=== PATIENT | female | born 1950 | race African-American/Black ===

== ENCOUNTER 2024-11-27 10:37 | Outpatient (CLI) | payer MEDICARE, SELFPAY ==
--- OUTSIDE RECORDS SUMMARY | 2024-08-05 08:45 | XMS_ITS ---
Author Organization [facility] Address [address] [place] [address] [place] [address] Care Team Providers Care National Opelint Analyst Name Role Phone STEVE CARCAMO, LUIS Primary Care Provider U Arben Khan Unavailable [phone] MD THOMAS, RUFINO Unavailable Unavailable ALLERGIES Allergen (clinical drug ingredient) Drug/Non Drug Allergy documented on EMR Reaction Allergy Type Onset Date Status Chapstick swelling Drug Allergy Active angiotensin-convertin g enzyme inhibitor (FN) KAVON Inhibitors anaphylaxis Drug Allergy Active lisinopril Lisinopril angioedema Drug Allergy Acti ve Substance with sulfonamide structure and antibacterial mechanism of action (substance) Sulfa Antibiotics rash Drug Allergy Active sulfacetamide Sulfacetamide angioedema Drug Allergy Active REASON FOR VISIT Follow Up, Left Low Back Pain MEDICATIONS Medication SIG (Take, Route, Frequency, Duration) Notes Start Date End Date Status Xanax 0.25 MG 1-2 tablets Orally 3 0 minutes prior to injection 08/05/2024 Active traMADol HCl 50 MG Oral for 7 Active Xanax 0.25 MG 1-2 tablets Orally 3 0 minutes prior to injection Active metFORMIN HCl ER 500 MG TAKE 1 TABLET BY MOUTH TWICE A DAY Oral for 90 Active Chlorthalidone 25 MG TAKE 1 TABLET (25 M G TOTAL) BY MOUTH DAILY. Oral for 90 Active Furosemide 40 MG TAKE 1 TABLET (40 MG TOTAL) BY MOUTH 3 (THREE) TIMES A WEEK Oral for 70 Active Vitamin E 400 UNIT 1 capsule Orally Onc e a day for 30 day(s) 01/30/2020 Active Vitamin D-[address] 25 MCG (1000 UT) 1 tablet Orally Once a day for 30 day(s) 01/30/2020 Active Spironolactone 25 MG 1 tablet Oral Once a day Active Pioglitazone HCl 30 MG 1 tablet Oral Onc e a day Active Cyclobenzaprine HCl 10 MG 1 tablet at be dtime as needed Oral Once a day Active Atorvastatin Calcium 10 MG 1 tablet Oral ly Once a day Active Anastrozole 1 MG 1 tablet Oral Once a day Active amLODIPine Besylate 10 MG 1 tablet Oral Once a day Active Hydroxychloroquine Sulfate 2 00 MG as directed Oral Active Aspirin 81 MG 1 tablet Orally Once a day for 30 day(s) Active Tylenol Extra Strength 500 MG 1 tablet a s needed Orally every 6 hrs Active SOCIAL HISTORY Tobacco Use: Social History Observation Description Date Details (start date - stop date) Never Smoker NA - NA Sex Assigned At : Social History Observation Description Sex Assigned At Unknown Tobacco Use/Smoking Question Answer Notes Are you a nonsmoker Section Notes: 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 She denies tobacco, alcohol and drug use. VITAL SIGNS Blood pressure systolic 134 mm Hg 08/06/19 25 Blood pressure diastolic 73 mm Hg 025 Heart Rate 85 /min 08/05/2024 Respiratory Rate 16 /min 08/05/2024 Height 5 ft 1 in in 08/05/2024 Weight 239 lbs 08/05/2024 BMI 45.15 kg/m2 08/05/2024 Encounters Encounter Location Date Provider Diagnosis [facility] [address] [place] [address] 08/05/2024 Arben Montalvoick Radiculopathy, lumba r region M54.16 ; Spondylosis without myelopathy or radiculopathy, lumbar region M47.816 ; Sacroiliitis, not elsewhere classified M46.1 ; Postlaminectomy syndrome, not elsewhere classified M96.1 ; 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 ; group home (current) use of aspirin Z79.82 and group home (current) use of anticoagulants Z79.01 ASSESSMENTS Encounter Date Diagnosis Assessment Notes Treatment Notes Treatment Clinical Notes Section Notes 08/05/2024 Radiculopathy, lumbar region (ICD-10 - M54.16) 08/05/2024 Spondylosis without myelopathy or radiculopathy, lumbar region (ICD-10 - M47.816) schedule a left L3-5 medial branch nerve block as a diagnostic and potentially therapeutic endeavor to isolate the source of the patient's facet-generated low back pain originating from the L4-5 and L5-S1 facet joints and to ultimately perform radiofrequency ablation for more durable pain relief. The risks of this procedure including pain, bleeding, infection, nerve damage, spinal cord injury, paralysis, total spinal anesthesia resulting in cardiopulmonary arrest/, respiratory distress requiring intubation, neuritis after radiofrequency ablation, hyperglycemia, insomnia, hair loss, muscle atrophy, skin depigmentation, weight gain, fluid retention, adrenal suppression, osteoporosis resulting in fractures, avascular necrosis of the hip, cataracts, bleeding gastric ulcer, worsening pain and failure to relieve pain were discussed and the patient is agreeable to proceeding at this time. 08/05/2024 Sacroiliitis, not elsewhere classified (ICD-10 - M46.1) 08/05/2024 Postlaminectomy syndrome, not elsewhere classified (ICD-10 - M96.1) 08/05/2024 Fear of injections and transfusions (ICD-10 - F40.231) The patient was given written instructions explaining the above and was informed that they would need to come with a over the road driver after taking this medication due to the risk of impairment. 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 De Dios. I have discussed and reviewed all of the pertinent history, physical examination findings and diagnostic imaging results with him. As a result of our discussion, Dr. De Dios has determined the above assessment and directed the treatment plan. This note was dictated using voice recognition software and therefore inadvertent errors may have occurred. This note was dictated by CHELO Benítez. Total Time Spent with Patient and Medical Decision Makin minutes PLAN OF TREATMENT Medication Medication Name Sig Start Date Stop Date Notes Xanax 0.25 MG 1-2 tablets Orally 3 0 minutes prior to injection 08/05/2024 Treatment Notes Assessment Notes Spondylosis without myelopat hy or radiculopathy, lumbar region schedule a left L3-5 medial branch nerve block as a diagnostic and potentially therapeutic endeavor to isolate the source of the patient's facet-generated low back pain originating from the L4-5 and L5-S1 facet joints and to ultimately perform radiofrequency ablation for more durable pain relief. The risks of this procedure including pain, bleeding, infection, nerve damage, spinal cord injury, paralysis, total spinal anesthesia resulting in cardiopulmonary arrest/, respiratory distress requiring intubation, neuritis after radiofrequency ablation, hyperglycemia, insomnia, hair loss, muscle atrophy, skin depigmentation, weight gain, fluid retention, adrenal suppression, osteoporosis resulting in fractures, avascular necrosis of the hip, cataracts, bleeding gastric ulcer, worsening pain and failure to relieve pain were discussed and the patient is agreeable to proceeding at this time. Fear of injections and transfusions The patient was given written instructions explaining the above and was informed that they would need to come with a over the road driver after taking this medication due to the risk of impairment. Other The above-named patient was evaluated in conjunction with Dr. De Dios. I have discussed and reviewed all of the pertinent history, physical examination findings and diagnostic imaging results with him. As a result of our discussion, Dr. De Dios has determined the above assessment and directed the treatment plan. This note was dictated using voice recognition software and therefore inadvertent errors may have occurred. This note was dictated by CHELO Benítez. Total Time Spent with Patient and Medical Decision Makin minutes Next Appt Details Follow Up: left L3-5 MBNB, Braden washburn: Progress Notes * Examination Category Sub-Category Detail Notes Category Not es Examination/ Pre-Anesthesia Assessment General: The patient is alert and oriented X 3 in moderate distress secondary to pain HEENT: Normocephalic, atrau matic. PERRL. The oropharynx is clear Neck: There is full range of motion of the cervical spine Heart: Regular rate and rhy thm Chest: Clear to auscultatio n bilaterally Abdomen: Soft and benign with normal bowel sounds throughout Musculoskeletal and Extremities: There i s tenderness to palpation over the bilateral L2-3 through L5-S1 facet joints. Extension and lateral rotation of the lumbar spine reproduces the patient's typical axial low back pain. Clayton's, Phoenix's and Gaenslen's are positive on the left. There is tenderness to palpation over the left sacroiliac joint and greater trochanter. There is tenderness to palpation over the bilateral lumbar paraspinal muscles and palpable myofascial trigger points throughout. There is weakness and atrophy of the bilateral lumbar paraspinal muscles Neurological: There is positive st raight leg raising on the left. There are no focal strength deficits in the bilateral upper and lower extremities Skin: Clean, dry and intac t Psychiatric: Mood and affect are normal History and Physical Notes * HPI (History of Present Illness) Category Sub-Category Detail Notes Category Not es Pain Management Radiographic Imaging An MRI lumbar spine done on 02/28/24 demonstrates an anterior interbody and posterior instrumented fusion at L4-5. At L3-4 there is central disc bulging and a right laminotomy without significant stenosis. At L4-5 there is a right hemilaminectomy and facetectomy. There is moderate right foraminal stenosis. At L5-S1 there is mild bilateral foraminal stenosis CT lumbar spine without contrast performed 07/30/24. L1-2 disc is normal. Mild facet arthropathy is seen. There is no central, lateral recess or foraminal stenosis. L2-3 disc bulging with annular calcification and extends into the foramina, which are mildly stenosis. Moderate facet arthropathy and right laminectomy is noted without central or lateral recess stenosis. CT pelvis without contrast performed 07/30/24. Mild bilateral SI joint sclerosis and vacuum phenomenon is seen without erosion or ankylosis. The pelvic ring is intact. Hip joints are symmetric without significant narrowing. Partial image anterior and posterior instrument effusion at L3-4 is seen. Last discus labeled as L4-S1. Moderate colonic stool barn and sigmoid diverticulosis is present. No distended small bowel is seen. There is no free fluid. Nondistended bladder is seen. Uterus is absent. No pelvic lymphadenopathy is seen. Impression mild bilateral SI joint osteoarthritis. Assessment and Follow-up: Follow-up Plan documen linda:: Yes MIPS Quality 2020: MIPS Documented:: Compliant
--- OUTSIDE RECORDS SUMMARY | 2024-08-16 03:30 | XMS_ITS ---
Author Organization [facility] Address [address] [place] [address] [place] [address] Care Team Providers Care Hydrogen Treater Name Role Phone STEVE CARCAMO, LUIS Primary Care Provider U Arben Khan Unavailable [phone] MD THOMAS, RUFINO Unavailable Unavailable ALLERGIES Allergen [...] angioedema Drug Allergy Active REASON FOR VISIT Left Low Back Pain MEDICATIONS Medication SIG (Take, Route, Frequency, Duration) Notes Start Date End Date Status Xanax 0.25 MG 1-2 tablets Orally 3 0 minutes prior to injection Active traMADol HCl 50 MG Oral for [...] tablet Oral Onc e a day Active Hydroxychloroquine Sulfate 2 00 MG as directed Oral Active Cyclobenzaprine HCl 10 MG 1 tablet at be dtime as needed Oral Once a day Active Atorvastatin Calcium 10 MG 1 tablet Oral ly Once a day Active Anastrozole 1 MG 1 tablet Oral Once a day Active amLODIPine Besylate 10 MG 1 tablet Oral Once a day Active Tylenol Extra Strength 500 MG 1 tablet a s needed Orally every 6 hrs Active Aspirin 81 MG 1 tablet Orally Once a day for 30 day(s) Active PROBLEMS Problem Type ICD Code Onset Dates Problem Status W/U Status Risk SNOMED Code Notes Problem Spondylosis without myelopathy or radiculopathy, lumbosacral region (M47.817) Active confirmed Lumbosacral spondylosis without myelopathy (disorder) ([id number]) VITAL SIGNS Blood pressure systolic 138 mm Hg 08/17/19 25 Blood pressure diastolic 71 mm Hg 025 Heart Rate 95 /min 08/16/2024 Respiratory Rate 18 /min 08/16/2024 Height 5 ft 1 in in 08/16/2024 Weight 239 lbs 08/16/2024 BMI 45.15 kg/m2 08/16/2024 Post procedure VS=BP 127/69 ,P 100 ,R 16Pain=5/10. Reports a 40% improvemnent in pain. Discharged home per ambulatory with family, in no acute distress. Encounters Encounter Location Date Provider Diagnosis [facility] [address] [place] [address] 08/16/2024 Arben De Dios Spondylosis without myelopathy or radiculopathy, lumbar region M47.816 and Spondylosis without myelopathy or radiculopathy, lumbosacral region M47.817 ASSESSMENTS Encounter Date Diagnosis Assessment Notes Treatment Notes Treatment Clinical Notes Section Notes 08/16/2024 Spondylosis without myelopathy or radiculopathy, lumbar region (ICD-10 - M47.816) 08/16/2024 Spondylosis without myelopathy or radiculopathy, lumbosacral region (ICD-10 - M47.817) PLAN OF TREATMENT Next Appt Details Follow Up: 2 Weeks, Reason: Procedure Notes * Category Sub-Category Detail Notes L3-5 Medial Branch Nerve Block Under Fluroscopy Location Left Anesthesia Local without IV sed ation Operative Technique: After the risks, be nefits, alternative treatment options and potential complications related to the procedure were discussed, informed consent was obtained. The specific risks of this procedure including pain, bleeding, [...] is agreeable to proceeding at this time. The patient was placed in the prone position on the fluoroscopy table. Standard ASA monitors were applied. The back was prepped and draped in the usual sterile fashion with chlorhexidine 2%/IPA 70%. The left L4 and L5 pedicles as well as the junction of the superior articular process of S1 and the sacral ala were identified with x-ray using an AP view. A 25 gauge 3.5 inch spinal needle was inserted in a gun barrel fashion to the junction of the superior articular process and transverse process at the upper outer quadrant of the pedicle until periosteum was contacted at each level bilaterally. 1.5 mL of 0.25% Preservative-Free bupivacaine was drawn up. After negative aspiration for blood, air or CSF, 0.5 mL of this solution was injected at each level, blocking the left L3 and L4 medial branch nerves. The left L5 dorsal ramus was blocked at the junction of the superior articular process of S1 and the sacral ala in the same fashion. The needles were then removed, the skin was cleaned and band-aids were placed over the puncture sites. The patient tolerated the procedure well, was able to ambulate without difficulty and was monitored for 20 minutes. The patient remained hemodynamically and neurologically stable. No complications were observed. The patient noted a 40% reduction in her typical back pain associated with extension and lateral rotation of the lumbar spine. Postoperative instructions were reviewed with the patient. The patient was discharged home in good condition with a pole truck driver. X-ray time: 10 seconds Progress Notes * Examination Category Sub-Category Detail [...] patient's typical axial low back pain. Clayton's, Willow's and Gaenslen's are positive on the left. [...] es Pain Management Radiographic Imaging An MRI lumb ar spine done on 02/28/24 demonstrates an anterior interbody and posterior instrumented fusion at L4-5. At L3-4 there is central disc bulging and a right laminotomy without significant stenosis. At L4-5 there is a right hemilaminectomy and facetectomy. There is moderate right foraminal stenosis. At L5-S1 there is mild bilateral foraminal stenosis Assessment and Follow-up: Follow-up Plan documen linda:: Yes MIPS Quality 2020: MIPS Documented:: Compliant
--- OUTSIDE RECORDS SUMMARY | 2024-08-26 05:45 | XMS_ITS ---
Author Organization [facility] Address [address] [place] [address] [place] [address] Care Team Providers Care Perforator Operator Oil Well Name Role Phone STEVE CARCAMO, LUIS Primary Care Provider U Arben Khan Unavailable [phone] MD THOMAS, RUFINO Unavailable Unavailable ALLERGIES Allergen [...] Orally 3 0 minutes prior to injection 08/26/2024 Active Cetirizine HCl 10 MG TAKE 0.5 TABLETS (5 MG TOTAL) BY MOUTH DAILY NEEDED FOR ALLERGIES Oral for 90 Active traMADol HCl 50 MG Oral for 7 Active Xanax 0.25 MG 1-2 tablets Orally 3 0 minutes prior to injection Active Vitamin E 400 UNIT 1 capsule Orally Onc e a day for 30 day(s) 01/30/2020 Active Vitamin D-[address] 25 MCG (1000 UT) 1 tablet Orally Once a day for 30 day(s) 01/30/2020 Active metFORMIN HCl ER 500 MG TAKE 1 TABLET BY MOUTH TWICE A DAY Oral for 90 Active Chlorthalidone 25 MG TAKE 1 TABLET (25 M G TOTAL) BY MOUTH DAILY. Oral for 90 Active Furosemide 40 MG TAKE 1 TABLET (40 MG TOTAL) BY MOUTH 3 (THREE) TIMES A WEEK Oral for 70 Active Pioglitazone HCl 30 MG 1 tablet Oral Onc e a day Active Hydroxychloroquine Sulfate 2 00 MG as directed Oral Active Spironolactone 25 MG 1 tablet Oral Once a day Active Cyclobenzaprine HCl 10 MG 1 tablet at be dtime as needed Oral Once a day Active Atorvastatin Calcium 10 MG 1 tablet Oral ly Once a day Active Tylenol Extra Strength 500 MG 1 tablet a s needed Orally every 6 hrs Active Anastrozole 1 MG 1 tablet Oral Once a day Active amLODIPine Besylate 10 MG 1 tablet Oral Once a day Active Aspirin 81 MG 1 tablet Orally Once a day for 30 day(s) Active SOCIAL HISTORY Tobacco Use: Social History Observation Description Date Details (start date - stop date) Never Smoker NA - NA Sex Assigned At : Social History Observation Description Sex Assigned At Unknown Tobacco Use/Smoking Question Answer Notes Are you a nonsmoker Section Notes: 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 She denies tobacco, alcohol and drug use. VITAL SIGNS Blood pressure systolic 135 mm Hg 08/27/19 25 Blood pressure diastolic 75 mm Hg 025 Heart Rate 94 /min 08/26/2024 Respiratory Rate 16 /min 08/26/2024 Height 5 ft 1 in in 08/26/2024 Weight 235 lbs 08/26/2024 BMI 44.40 kg/m2 08/26/2024 Encounters Encounter Location Date Provider Diagnosis [facility] [address] [facility] [place] [address] 08/26/2024 Arben De Dios Spondylosis without myelopathy or radiculopathy, lumbar region M47.816 ; Spondylosis without myelopathy or radiculopathy, lumbosacral region M47.817 ; Postlaminectomy syndrome, not elsewhere classified M96.1 ; Radiculopathy, lumbar region M54.16 and 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 All questions were answered, schedule a left L3-5 medial branch nerve [...] is agreeable to proceeding at this time. 08/26/2024 Spondylosis without myelopathy or radiculopathy, lumbosacral region (ICD-10 - M47.817) 08/26/2024 Postlaminectomy syndrome, not elsewhere classified (ICD-10 - M96.1) 08/26/2024 Radiculopathy, lumbar region (ICD-10 - M54.16) 08/26/2024 Fear of injections and transfusions (ICD-10 - F40.231) The patient was given written instructions explaining the above and was informed that they would need to come with a trash collector truck driver after taking this medication due to the risk of impairment. 08/26/2024 Other The above-named patient was evaluated in [...] Orally 3 0 minutes prior to injection 08/26/2024 Treatment Notes Assessment Notes Spondylosis without myelopat hy or radiculopathy, lumbar region The results of the patient's recent lumbar spine CT were discussed with the patient using an anatomical model and layman's terminology. All questions were answered, schedule a left L3-5 medial branch nerve [...] they would need to come with a trash collector truck driver after taking this medication due to [...] Appt Details Follow Up: left L3-5 MBNB, R wu: Progress Notes * Examination Category Sub-Category Detail [...] patient's typical axial low back pain. Clayton's, Jordan's and Gaenslen's are positive on the left. [...] foraminal stenosis. L2-3 disc bulging with annular calcification, extends to the foramina which are mildly stenosed. Moderate facet arthropathy and right laminectomy is noted without central or lateral recess stenosis. L3-4 left hemilaminectomy, anterior and posterior instrumented fusion with disc space or subsidence and osseous induration is seen. Hardware is otherwise satisfactory. Metal artifact obscures the spinal canal but no bony central stenosis is seen. Moderate right foraminal stenosis from osteophyte lash heterotrophic bone is present. L4-S1 bulging disc and moderate facet arthropathy is present. There is no central, lateral recess or foraminal stenosis. Overall impression. Please note for nonweightbearing lumbar vertebrae with last dose label, L4-S1. Anterior and posterior instrument fusion at the L3-4 with spacer integration, left hemilaminectomy and moderate right foraminal stenosis. L2-3 disc bulge, facet arthropathy, right laminectomy and mild bilateral foraminal stenosis. No central spinal stenosis is seen. Assessment and Follow-up: Follow-up Plan george mckeon:: Yes
--- OUTSIDE RECORDS SUMMARY | 2024-09-02 04:15 | XMS_ITS ---
Author Organization [facility] Address [address] [place] [address] [place] [address] Care Team Providers Care Molder Floor Name Role Phone STEVE CARCAMO, LUIS Primary Care Provider U Arben Khan Unavailable [phone] MD THOMAS, RUFINO Unavailable Unavailable ALLERGIES Allergen [...] angioedema Drug Allergy Active REASON FOR VISIT Left>Right Low Back Pain MEDICATIONS Medication SIG (Take, Route, Frequency, Duration) Notes Start Date End Date Status Hydroxychloroquine Sulfate 2 00 MG as directed Oral Active Anastrozole 1 MG 1 tablet Oral Once a day Active amLODIPine Besylate 10 MG 1 tablet Oral Once a day Active Cyclobenzaprine HCl 10 MG 1 tablet at be dtime as needed Oral Once a day Active Atorvastatin Calcium 10 MG 1 tablet Oral ly Once a day Active Cetirizine HCl 10 MG TAKE 0.5 TABLETS (5 MG TOTAL) BY MOUTH DAILY NEEDED FOR ALLERGIES Oral for 90 Active Aspirin 81 MG 1 tablet Orally Once a day for 30 day(s) Active Tylenol Extra Strength 500 MG 1 tablet a s needed Orally every 6 hrs Active Xanax 0.25 MG 1-2 tablets Orally 3 0 minutes prior to injection Active Xanax 0.25 MG 1-2 tablets Orally 3 0 minutes prior to injection Active traMADol HCl 50 MG Oral for 7 Active Chlorthalidone 25 MG TAKE 1 TABLET (25 M G TOTAL) BY MOUTH DAILY. Oral for 90 Active metFORMIN HCl ER 500 MG TAKE 1 TABLET BY MOUTH TWICE A DAY Oral for 90 Active Vitamin E 400 UNIT 1 capsule Orally Onc e a day for 30 day(s) 01/30/2020 Active Furosemide 40 MG TAKE 1 TABLET (40 MG TOTAL) BY MOUTH 3 (THREE) TIMES A WEEK Oral for 70 Active Spironolactone 25 MG 1 tablet Oral Once a day Active Vitamin D-[address] 25 MCG (1000 UT) 1 tablet Orally Once a day for 30 day(s) 01/30/2020 Active Pioglitazone HCl 30 MG 1 tablet Oral Onc e a day Active VITAL SIGNS Blood pressure systolic 135 mm Hg 09/03/19 25 Blood pressure diastolic 79 mm Hg 025 Heart Rate 87 /min 09/02/2024 Respiratory Rate 16 /min 09/02/2024 Height 5 ft 1 in in 09/02/2024 Weight 235 lbs 09/02/2024 BMI 44.40 kg/m2 09/02/2024 Post procedure VS= BP 137/71 , P 82, R 16Pain= 7/10.Discharged home per ambulatory, in no acute distress. Encounters Encounter Location Date Provider Diagnosis [facility] [address] [place] [id number] 09/02/2024 Arben De Dios Spondylosis without myelopathy or radiculopathy, lumbar region M47.816 and Spondylosis without myelopathy or radiculopathy, lumbosacral region M47.817 ASSESSMENTS Encounter Date Diagnosis Assessment Notes Treatment Notes Treatment Clinical Notes Section Notes 09/02/2024 Spondylosis without myelopathy or radiculopathy, lumbar region (ICD-10 - M47.816) 09/02/2024 Spondylosis without myelopathy or radiculopathy, lumbosacral region (ICD-10 - M47.817) PLAN OF TREATMENT Next Appt Details Follow Up: F/U 09/10/24, Reas on: Procedure Notes * Category Sub-Category Detail Notes [...] complications were observed. The patient noted a 25% reduction in her typical back pain associated with extension and lateral rotation of the lumbar spine. Postoperative instructions were reviewed with the patient. 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 X-ray time: 12 seconds Progress Notes * Examination Category Sub-Category [...] patient's typical axial low back pain. Clayton's, [place]'s and Gaenslen's are positive on the left. [...] is seen. Assessment and Follow-up: Follow-up Plan documen linda:: Yes
--- OUTSIDE RECORDS SUMMARY | 2024-09-10 03:45 | XMS_ITS ---
Author Organization [facility] Address [address] [place] [address] [place] [address] Care Team Providers Care Asphalt Paving Supervisor Name Role Phone STEVE CARCAMO, LUIS Primary Care Provider U Arben Khan Unavailable [phone] MD THOMAS, RUFINO Unavailable Unavailable ALLERGIES Allergen [...] FOR VISIT Follow Up, Left Low Back Pain, Left Lower Extremity Pain MEDICATIONS Medication SIG (Take, Route, Frequency, Duration) Notes Start Date End Date Status traMADol HCl 50 MG Oral for 7 Active Cetirizine HCl 10 MG TAKE 0.5 TABLETS (5 MG TOTAL) BY MOUTH DAILY NEEDED FOR ALLERGIES Oral for 90 Active Xanax 0.25 MG 1-2 tablets Orally 3 0 minutes prior to injection Active metFORMIN HCl ER 500 MG TAKE 1 TABLET BY MOUTH TWICE A DAY Oral for 90 Active Spironolactone 25 MG 1 tablet Oral Once a day Active Vitamin D-[address] 25 MCG (1000 UT) 1 tablet Orally Once a day for 30 day(s) 01/30/2020 Active Vitamin E 400 UNIT 1 capsule Orally Onc e a day for 30 day(s) 01/30/2020 Active Furosemide 40 MG TAKE 1 TABLET (40 MG TOTAL) BY MOUTH 3 (THREE) TIMES A WEEK Oral for 70 Active Chlorthalidone 25 MG TAKE 1 TABLET (25 M G TOTAL) BY MOUTH DAILY. Oral for 90 Active Pioglitazone HCl 30 MG 1 tablet Oral Onc e a day Active Anastrozole 1 MG 1 tablet Oral Once a day Active Atorvastatin Calcium 10 MG 1 tablet Oral ly Once a day Active Cyclobenzaprine HCl 10 MG 1 tablet at be dtime as needed Oral Once a day Active Hydroxychloroquine Sulfate 2 00 MG as directed Oral Active Tylenol Extra Strength 500 MG 1 tablet a s needed Orally every 6 hrs Active Aspirin 81 MG 1 tablet Orally Once a day for 30 day(s) Active amLODIPine Besylate 10 MG 1 tablet Oral Once a day Active SOCIAL HISTORY Tobacco Use: Social History Observation Description Date Details (start date - stop date) Never Smoker NA - NA Sex Assigned At : Social History Observation Description Sex Assigned At Unknown Tobacco Use/Smoking Question Answer Notes Are you a nonsmoker Section Notes: 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 She is single with two children. She denies tobacco, alcohol and drug use. VITAL SIGNS Blood pressure systolic 99 mm Hg 09/11/19 25 Blood pressure diastolic 51 mm Hg 025 Heart Rate 84 /min 09/10/2024 Respiratory Rate 18 /min 09/10/2024 Height 5 ft 1 in in 09/10/2024 Weight 230 lbs 09/10/2024 BMI 43.45 kg/m2 09/10/2024 Encounters Encounter Location Date Provider Diagnosis [facility] [address] [place] [id number] 09/10/2024 Arben De Dios Spondylosis without myelopathy or radiculopathy, lumbar region M47.816 ; Spondylosis without myelopathy or radiculopathy, lumbosacral region M47.817 ; Postlaminectomy syndrome, not elsewhere classified M96.1 and Radiculopathy, lumbar region M54.16 ASSESSMENTS Encounter Date Diagnosis Assessment Notes Treatment Notes Treatment Clinical Notes Section Notes 09/10/2024 Spondylosis without myelopathy or radiculopathy, lumbar region (ICD-10 - M47.816) The patient recently underwent follow-up s/p left L3-5 MBNB done on 09/02/24 and reports a 25% reduction of her axial low back pain since this procedure., She did not want to move forward with any injections or interventions at this time. She states she is scheduled to see her neurosurgeon Dr Parker at the end of September to discuss treatment plans, moving forward. She would like to return to the office in 1 month for follow-up after her visit with Dr Parker 09/10/2024 Spondylosis without myelopathy or radiculopathy, lumbosacral region (ICD-10 - M47.817) 09/10/2024 Postlaminectomy syndrome, not elsewhere classified (ICD-10 - M96.1) 09/10/2024 Radiculopathy, lumbar region (ICD-10 - M54.16) 09/10/2024 Other The above-named patient was evaluated in [...] Medical Decision Makin minutes PLAN OF TREATMENT Treatment Notes Assessment Notes Spondylosis without myelopat hy or radiculopathy, lumbar region The patient recently underwent follow-up s/p left L3-5 MBNB done on 09/02/24 and reports a 25% reduction of her axial low back pain since this procedure., She did not want to move forward with any injections or interventions at this time. She states she is scheduled to see her neurosurgeon Dr Parker at the end of September to discuss treatment plans, moving forward. She would like to return to the office in 1 month for follow-up after her visit with Dr Parker Other The above-named patient was evaluated in [...] Makin minutes Next Appt Details Follow Up: 4 Weeks OPV, Reas on: Progress Notes * Examination Category Sub-Category Detail [...] patient's typical axial low back pain. Clayton's, [place]'s and Gaenslen's are positive on the left. [...] is seen. Assessment and Follow-up: Follow-up Plan documeneil linda:: Yes MIPS Quality 2020: MIPS Documented:: Compliant
--- NOTE | ~2024-11-27 | XR_ITS ---
EXAMINATION: XR knee RT min 4V, 11/27/2024 11:00 CDT HISTORY: M17.11 - Unilateral primary osteoarthritis, right knee COMPARISON: No comparisons available. Findings: No acute fracture or malalignment. No significant degenerative changes. Soft tissues unremarkable. Impression: No acute fracture or malalignment. Reviewed, dictated and finalized at location A. Impression: No acute fracture or malalignment.
--- OUTSIDE RECORDS SUMMARY | 2024-11-27 11:29 | XMS_ITS | Encounter Summary ---
Author Organization [facility] Address [address] [place] [address] Care Team Providers Care Elementary Assistant Principal Name Role Phone Nolvia Regan MD Unavailable Karina Frances MD Unavailable Fide Cararnza MD Unavailable [phone] Inessa Sapp MD Primary Care Provider Jessica Pagan DDS Unavailable Loreto Overton MD Unavailable Ava Pérez MD PhD Unavaila ble Jose Armando Genao DPJuanita Unavailable Leighann Calix MD Unavailable [phone] Karina Frances MD Unavailable Janeth Singh MD Unavailable Asif Demarco MD Unavailable Arben De Dios MD Unavailable [phone] Rony Sosa MD Unavailable Aracelis Mart [facility] Unavailable [phone] Kelly Vasquez OT Unavailable Aracelis Mart RPh Unavailable Aracelis Mart RPh Unavailable SouravjenvenessaAshtyn RESEARCH PROJECT COORDINATOR Unavailable Kelly Vasquez OT Unavailable Aracelis Mart RPh Unavailable Betancourt Juanasilvia FritzMaya DOLAN Unavailable Lesley Fournier CMA Unavailable Encounter Details Date Type Department Care Team (Late st Contact Info) Description 09/24/2019 Telephone [facility] Radiation Oncology [address] [place] [phone] Nolvia Regan MD [address] [place] [address] Social History Tobacco Use Types Packs/Day Years Used Date Smoking Tobacco: Never Smokeless Tobacco: Never Alcohol Use Standard Drinks/Week Comments Yes 2 (1 standard drink = 0.6 oz pur e alcohol) social PHQ-2 Answer Date Recorded PHQ-2 Score 0 01/14/2019 Comments No Sex and Gender Information Value Date Recorded Sex Assigned at Not on file Legal Sex Female 12:21 AM CORPORATE WELLNESS COORDINATOR Gender Identity Female 04/16/2019 1:38 PM CORPORATE WELLNESS COORDINATOR Sexual Orientation Straight 03/18/2019 1: 47 PM CORPORATE WELLNESS COORDINATOR documented as of this encounter Plan of Treatment Not on file documented as of this encounter Visit Diagnoses Not on filedocumented in this encounter Care Teams Elementary Assistant Principal Relationship Specialty Start Date End Date Inessa Sapp MD [address] [place] [address] PCP - General Family Medicine 01/14/19 Nolvia Regan MD [address] [place] [address] Radiation Oncologist Radiation Oncology 08/04/17 04/04/20 Karina Frances MD [address] [place] [address] Medical Oncologist/Supervisor Aircraft Maintenance Medical Oncology 09/14/17 12/08/19 Fide Carranza MD [address] [place] [address] Surgeon Surgical Oncology 09/14/17 12/14/23 Jessica Pagan, DDS [address] [facility] [address] [place], [place] [id number] Dentist Dental Comedian 04/22/19 Loreto Overton MD [address] [address] Consulting Physician Rheumatology 04/22/19 Ava Pérez MD PhD [address] [id number] Surgeon Surgical Oncology 04/22/19 Jose Armando Genao DPM [address] [address] Referring Physician Podiatry 04/22/19 Leighann Calix MD [address] [place] [address] DR YOSEPH [facility], [facility] [address] [place] [address] Consulting Physician Nephrology 04/22/19 Karina Frances MD [address] [place] [address] Medical Oncologist/Supervisor Aircraft Maintenance Medical Oncology 04/22/19 12/08/19 [place] [address] [facility] [address] [place] [address] Consulting Physician Gastroenterology 04/22/19 [place] [address] [facility] [address] [place] [address] Surgeon Orthopedic Surgery 04/22/19 12/14/23 [place] [address] [facility] [address] [address] Anesthesiologist Pain Management 04/22/19 12/14/23 [place] [address] [facility] [address] [address] Consulting Physician Medical Oncology 12/31/19 Aracelis Mart [address] [place] [address] Pharmacist Pharmacy 08/28/20 02/07/21 Pedro KellyDAJUAN [address] [place] [address] Occupational Therapist Occupational Therapy 02/08/2102/17 Aracelis Mart [address] [place] [address] Pharmacist Pharmacy 04/29/21 04/29/21 Aracelis Mart [address] [place] [address] Pharmacist Pharmacy 05/20/21 05/15/22 Ashtyn Lopez LPN [address] [place] [address] ACO Care Aniline Press Worker 07/20/21 07/21/21 Reggie VasquezahDAJUAN [address] [place] [address] Occupational Therapist Occupational Therapy 08/12/2102/17 Aracelis Mart [address] [place] [address] Pharmacist Pharmacy 10/10/22 07/30/23 Pablo Betancourt MA [address] [place] [address] ACO Care Aniline Press Worker 02/02/23 02/02/23 Lesley Fournier CMA [address] [place] [address] [address] [place] [address] ACO Care Aniline Press Worker 04/03/23 04/04/23 documented as of this encounter
--- OUTSIDE RECORDS SUMMARY | 2024-11-27 11:29 | XMS_ITS | Clinical Summary ---
Author Organization [facility] Address [address] [place] [address] Care Team Providers Care Freight Weigher Name Role Phone Inessa Sapp MD Primary Care Provider Jessica Pagan DDS Unavailable [phone] Loreto Overton MD Unavailable Ava Pérez MD PhD Unavaila ble Jose Armando Genao DPM Unavailable Leighann Calix MD Unavailable [phone] Janeth Singh MD Unavailable Rony Sosa MD Unavailable Allergies Active Allergy Reactions Criticality Noted Date Comments Leander Inhibitors Edema,Unknown Medium 09/09/2017 Tongue swelling Chapstick Lip Wake Swelling High 12/25/2017 In lips Lisinopril Angioedema High 01/10/2005 Sulfa (Sulfonamide Antibiotics) Angioedema,Unknown High 09/09/2017 Sulfamethoxazole Angioedema High 12/25/2012 Medications blood pressure test kit-large kit blood pressure test kit-large cuff Active hydroxychloroquine (PLAQUENIL) 200 mg tabletIndications: Rheumatoid Arthritis Take 1 tablet (200 mg total) by mouth every morning 05/23/19 20 Active lancets miscIndications:CH HARRY BLOOD GLUCOSE LEVELS 2 TIMES EVERY DAY CHECK BLOOD GLUCOSE LEVELS 2 TIMES EVERY DAY 200 each 4 04/26/19 23 Active ondansetron ODT (ZOFRAN-ODT) 4 mg disintegrating tablet Take 1 tablet (4 mg total) by mouth every 8 (eight) hours as needed Active cyclobenzaprine (FLEXERIL) 10 mg tablet Take 1 tablet (10 mg total) by mouth 3 (three) times a day as needed for muscle spasms Active loperamide (IMODIUM A-D) 2 mg tabletIndications: diarrhea Initial dose: 4 mg (two tablets), followed by 2 mg (one tablet) after each loose stool; maximum: 16 mg per day (eight tablets in a day) 120 tablet 11 02/14/20 23 Active Additional Information Patient taking differently: As needed, Initial dose: 4 mg (two tablets), followed by 2 mg (one tablet) after each loose stool; maximum: 16 mg per day (eight tablets in a day), Indications: diarrhea, Reported on 11/21/2024 aspirin 81 mg enteric coated tablet Take 1 tablet (81 mg total) by mouth daily Active acetaminophen (TYLENOL ORAL) Take 1,000 mg by mouth daily Active pen needle, diabetic (1st Tier Unifine Pentips Plus) 32 gauge x 5/32 needle Active sod picosulf-mag ox-citric ac (Clenpiq) 10 mg-3.5 gram- 12 gram/175 mL solution Take as Directed 350 mL 02/19/20 24 Active spironolactone (ALDACTONE) 25 mg tabletIndications: Stage 3a chronic kidney disease (HCC) Take 1 tablet (25 mg total) by mouth daily 90 tablet 2 02/22/20 24 Active furosemide (LASIX) 40 mg tabletIndications: Stage 3a chronic kidney disease (HCC) Take 1 tablet (40 mg total) by mouth 3 (three) times a week 30 tablet 3 02/23/20 24 Active chlorthalidone (HYGROTON) 25 mg tabletIndications: Primary hypertension TAKE 1 TABLET (25 MG TOTAL) BY MOUTH DAILY. 90 tablet 3 04/15/19 25 026 Active sodium, potassium & mag sulfates (SUPREP BOWEL KIT) 17.5-3.13-1.6 gram recon solnIndications:Gaurang wel Evacuation Mix 1 bottle with water and take at 6 pm the day before test. Drink 2nd bottle 4 hours prior to arrival. 354 mL 06/19/19 25 Active amLODIPine (NORVASC) 5 mg tabletIndications: Hypertension, unspecified type Take 1 tablet (5 mg total) by mouth daily 90 tablet 1 07/24/19 25 Active blood glucose diagnostic (Accu-Chek Guide test strips) stripIndications:T ype 2 diabetes mellitus with hyperglycemia, unspecified whether supervisor long goods insulin use (HCC) CHECK BLOOD GLUCOSE LEVELS 2 TIMES EVERY DAY 100 each 11 07/24/19 25 Active cetirizine (ZyrTEC) 10 mg tabletIndications: Allergic Conjunctivitis,All ergic Rhinitis Take 0.5 tablets (5 mg total) by mouth daily as needed for allergies 90 tablet 08/06/19 25 Active atorvastatin (LIPITOR) 80 mg tabletIndications: Other hyperlipidemia Take 1 tablet (80 mg total) by mouth daily 100 tablet 1 11/16/19 25 Active pioglitazone (ACTOS) 30 mg tabletIndications: Type 2 diabetes mellitus with hyperglycemia, unspecified whether supervisor long goods insulin use (HCC) Take 1 tablet (30 mg total) by mouth every morning 100 tablet 1 11/16/19 25 Active metFORMIN XR (GLUCOPHAGE XR) 500 mg 24 hr tablet Take 1 tablet (500 mg total) by mouth 2 (two) times a day 180 tablet 1 11/16/19 25 Active traMADoL (ULTRAM) 50 mg tablet TAKE 1 TABLET(S) BY ORAL ROUTE , EVERY 6 HOURS , FOR 8 DAYS 10/09/19 25 Active blood-glucose meter miscIndications:Ty pe 2 diabetes mellitus with hyperglycemia, unspecified whether [facility] insulin use (HCC) Use daily or as directed for monitoring of diabetes. 1 each 11/22/19 25 Active blood-glucose meter miscIndications:Ty pe 2 diabetes mellitus with hyperglycemia, unspecified whether [facility] insulin use (HCC) Use daily or as directed for monitoring of diabetes. 1 each 04/11/19 23 025 Discontinu ed(Reorder ) atorvastatin (LIPITOR) 80 mg tabletIndications: Other hyperlipidemia Take 1 tablet (80 mg total) by mouth daily 100 tablet 1 03/04/20 24 025 Discontinu ed(Reorder ) pioglitazone (ACTOS) 30 mg tabletIndications: Type 2 diabetes mellitus with hyperglycemia, unspecified whether supervisor long goods insulin use (HCC) Take 1 tablet (30 mg total) by mouth every morning 100 tablet 1 03/04/20 24 025 Discontinu ed(Reorder ) metFORMIN XR (GLUCOPHAGE XR) 500 mg 24 hr tablet TAKE 1 TABLET BY MOUTH TWICE A DAY 180 tablet 1 05/24/19 25 025 Discontinu ed(Reorder ) respiratory syncytial virus vaccine (AREXVY) 120 mcg/0.5 mL vaccine Inject 0.5 mL into the muscle as instructed once for 1 dose 0.5 mL 11/23/19 025 Active Problems Problem Noted Date Diagnosed Date Hypercalcemia 11/25/2024 Preop examination 11/20/2024 Assessment & Plan (11/21/2024 10:29 AM CDT): Though the decision to perform surgery is ultimately at the discretion of the operating team, the patient is medically optimized for surgery. Patient is medically optimized to undergo low risk elective surgery. Risk of complications during surgery do not warrant clearance by cardiology or pulmonology. METS are high enough to indicate acceptable functional capacity. This note will be sent to surgery team along w/ pertinent labs. Colon polyp 02/19/2024 Hepatic steatosis 02/19/2024 Lumbar canal stenosis 02/01/2024 Lumbar foraminal stenosis 02/01/2024 Impaired gait and mobility 01/18/2024 Left hip pain 11/21/2023 Assessment & Plan (11/21/2023 11:25 AM CDT): Acute, worsening Likely ITB Patient will try Physical Therapy PRN Tylenol Ice/Heat Lumbar stenosis with neurogenic claudication Benign colon polyp 02/13/2023 Non-alcoholic fatty liver disease 02/13/2023 Seasonal allergies 02/07/2023 Assessment & Plan (02/07/2023 8:03 AM BLASTING CAP ASSEMBLER): - Chronic, Stable - PRN Zyrtec Breakdown (mechanical) of im planted electronic neurostimulator of spinal cord electrode (lead), initial encounter 01/31/2023 Connective tissue and disc s tenosis of intervertebral foramina of lumbar region 01/13/2023 Mechanical breakdown of impl anted electronic neurostimulator of spinal cord 01/13/2023 Postlaminectomy syndrome, lumbar region 01/03/20 Dystrophia unguium 11/08/2022 Diastolic dysfunction 07/30/2022 Overview (07/30/2022): --- 07/30/22 Noted on TTE Will continue to work on BP control Repeat TTE in 1 year Assessment & Plan (11/21/2023 11:16 AM CDT): Chronic Patient with bilateral LE edema Less likely due to Diastolic Dysfunction Last TTE with EF 68% Will consider repeating TTE Mild concentric left ventricular hypertrophy (LV H) 07/30/2022 Assessment & Plan (11/21/2023 11:22 AM CDT): Noted on TTE 2022 Patient denies CP, palpitations Continue Aspirin 81 mg/day and Atorvastatin 80 mg/day Mild aortic stenosis 07/30/2022 Assessment & Plan (11/21/2023 11:21 AM CDT): Noted on TTE 2022 Patient denies CP, palpitations Continue Aspirin 81 mg/day and Atorvastatin 80 mg/day 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 Assessment & Plan (11/21/2023 10:08 AM CDT): BMI Follow-up includes: nutrition counseling, exercise counseling, and education provided. Edema of both lower extremities 05/08/2022 Assessment & Plan (11/21/2023 11:18 AM CDT): - Noted on exam - Bilat 1+ LE - DDx: Kidney disease, heart disease, or venous insufficiency - Hx of breast lymphedema Plan: - will consider repeat TTE - Pt encouraged to use compression stockings - Increase exercise - Elevation of legs - Limit sodium intake to 2000 mg/day - No excessive water intake Assessment & Plan (05/09/2022 11:13 AM BLASTING CAP ASSEMBLER): - Noted on exam - Bilat 1+ LE - DDx: Kidney disease, heart disease, or venous insufficiency Plan: - TTE - BMP stable per last visit with nephrology - Pt encouraged to use compression stockings - Increase exercise - Elevation of legs - Limit sodium intake to 2000 mg/day - No excessive water intake Bilateral renal cysts 11/01/2021 Assessment & Plan (11/01/2021 10:39 AM CDT): - Chronic - Noted on US renaal 09/2019 - Patient to f/u with nephrology regarding monitoring parameters Renal cyst 11/01/2021 Diabetic peripheral neuropathy 09/22/2021 Assessment & Plan (11/22/2024 1:54 AM CDT): - Chronic - Normal monofilament test - No ulcerations noted - Continue to monitor Assessment & Plan (11/21/2023 11:11 AM CDT): - Chronic - Neuropathy of feet and hands - Patient declines medication at this time Assessment & Plan (11/01/2021 10:31 AM CDT): - Chronic - Neuropathy of feet and hands - Patient declines medication at this time S/P insertion of spinal cord stimulator 04/07/19 22 Assessment & Plan (11/01/2021 10:25 AM CDT): - Chronic - Has spinal stimulator in place - Not on any meds - Management as per Dr. Parker (per Patient only visit if stimulator acting up) Neurogenic claudication due to lumbar spinal toño nosis 04/06/2021 Overview (04/06/2021): Added automatically from request for surgery [id number] Assessment & Plan (11/01/2021 10:31 AM CDT): - Chronic - Has spinal stimulator in place - Not on any meds - Management as per Dr. Parker (per Patient only visit if stimulator acting up) Lumbosacral radiculopathy 04/06/2021 Assessment & Plan (03/01/2024 8:58 PM BLASTING CAP ASSEMBLER): - Chronic - Had spinal stimulator in place - removed 01/2023 - Lumbar fusion 03/2023 - Completed Physical Therapy - Management as per Dr. Parker Assessment & Plan (02/07/2023 7:59 AM BLASTING CAP ASSEMBLER): - Chronic - Had spinal stimulator in place - removed 01/2023 - Management as per Dr. Parker Assessment & Plan (11/01/2021 10:22 AM CDT): - Chronic - Has spinal stimulator in place - Not on any meds - Management as per Dr. Parker (per Patient only visit if stimulator acting up) Neurogenic claudication 04/05/2021 Stage 4 chronic kidney disease 08/27/2020 Overview (02/01/2023): --- 08/27/20 Lab Results Component Value Date GFRNAA 60 08/26/2020 Kidney function mildly decreased. Could be from dehydration, use of NSAIDs or anti inflammatory medications (ex: aleve or ibuprofen), normal aging, or chronic medical conditions such as diabetes or high blood pressure. Drink plenty of water and stop over the counter medications that can make it worse. We will recheck it in 6-12 months. Assessment & Plan (11/22/2024 1:45 AM CDT): - Repeat CMP today - Patient following with Dr. Metireddy - Patient advised: Kidney function decreased consistent with chronic kidney disease. The decline in kidney function could be from dehydration, use of NSAIDs or anti inflammatory medications (ex: aleve or ibuprofen), normal aging, or chronic medical conditions such as diabetes or high blood pressure. Drink plenty of water (at least 64 ounces/day) and stop over the counter medications that can make it worse. Assessment & Plan (03/01/2024 8:50 PM BLASTING CAP ASSEMBLER): - Repeat CMP today - Patient following with Metireddy - Patient advised: Kidney function mildly decreased consistent with chronic kidney disease. The decline in kidney function could be from dehydration, use of NSAIDs or anti inflammatory medications (ex: aleve or ibuprofen), normal aging, or chronic medical conditions such as diabetes or high blood pressure. Drink plenty of water (at least 64 ounces/day) and stop over the counter medications that can make it worse. Assessment & Plan (11/01/2021 10:37 AM CDT): - Repeat CMP today - Patient following with Metireddy Urine abnormality 08/27/2020 Overview (07/22/2023): --- 07/22/23 Lab Results Component Value Date UROBILINOGEN 2.0 (A) 07/21/2023 Patient advised: Your urine shows that you may be dehydrated with evidence of urobilinogen in it. Drink at least 64 ounces of water daily. We will repeat --- 08/27/20 Your urine shows that you may be dehydrated with evidence of urobilinogen in it. Drink at least 64 ounces of water daily. We will repeat at your next visit --- 09/04/20 UA now normal, resolved Lymphedema 01/16/2020 Overview (02/01/2023): Added automatically from request for surgery [id number] Assessment & Plan (11/21/2023 11:02 AM CDT): - Chronic - 2/2 breast cancer - Physical Therapy twice/week (completed) - New referral placed by oncology for recurrent symptoms - Continue present management - Patient has sleeve Assessment & Plan (07/16/2023 10:00 PM CDT): - Chronic - 2/2 breast cancer - Physical Therapy twice/week (completed) - Continue present management - Patient has sleeve - Patient will consider another round of Physical Therapy and let PCP or breast surgeon know if she'd like to proceed Assessment & Plan (11/07/2022 11:31 AM CDT): - Chronic - 2/2 breast cancer - Physical Therapy twice/week (completed) - Continue present management - Patient has sleeve Assessment & Plan (05/09/2022 10:43 AM BLASTING CAP ASSEMBLER): - Chronic - 2/2 breast cancer - Physical Therapy twice/week (completed) - Continue present management - Patient has sleeve Assessment & Plan (11/01/2021 10:35 AM CDT): - Chronic - 2/2 breast cancer - Physical Therapy twice/week - Continue present management Irritable bowel syndrome with diarrhea 0 Assessment & Plan (02/07/2023 8:01 AM BLASTING CAP ASSEMBLER): - Chronic, Improved - Taking Loperamide PRN - Management per GI Assessment & Plan (01/31/2022 11:04 AM BLASTING CAP ASSEMBLER): -symptoms improved. Occasional symptom. + fecal incontinence -recommended use of soluble fiber supplementation once to twice daily. Also recommended use of Imodium on a p.r.n. basis. Refill given. Assessment & Plan (11/01/2021 10:34 AM CDT): - Chronic - Taking PRN Metamucil and Loperamide PRN - Management per GI Assessment & Plan (05/03/2021 10:29 AM BLASTING CAP ASSEMBLER): - Chronic - Taking Metamucil and Loperamide PRN Assessment & Plan (02/01/2021 12:59 PM BLASTING CAP ASSEMBLER): -recommended use of soluble fiber supplementation once to twice daily. Also recommended use of Imodium on a p.r.n. basis. Refill given. Diarrhea 05/07/2019 Assessment & Plan (09/16/2019 9:58 AM CDT): -symptoms well controlled with Imodium. Was getting constipated with her twice a day treatment. Will go on to once a day Imodium. We will add methylcellulose 4 tablets a day as a source of fiber. She was taking 2 tablets a day. Up-to-date on colonoscopy. Presence of tubular adenoma no evidence of IBD or microscopic colitis. Diarrhea most likely secondary to IBS. Assessment & Plan (07/18/2019 9:58 AM CDT): -symptoms well controlled with Imodium twice a day. Up-to-date on colonoscopy. Presence of tubular adenoma no evidence of IBD or microscopic colitis. Diarrhea most likely secondary to IBS. Assessment & Plan (05/07/2019 1:01 PM BLASTING CAP ASSEMBLER): -symptoms improved. Have recommended to go up on the dose of her methylcellulose. She will also continue with the recommendations made on initial clinic visit. Encounter for Medicare annual wellness exam 05/2019 Assessment & Plan (11/22/2024 1:58 AM CDT): - Pt doing well overall - See Medicare Health Risk Assessment either scanned in or in flowsheet in [employer] - All healthcare maintenance reviewed and ordered as below - Info regarding POA and Living Will discussed Assessment & Plan (05/11/2020 11:00 AM BLASTING CAP ASSEMBLER): -Pt feeling well without complaints -Preventative screening up to date or ordered as below Plan: 1) No labs today 2) RTC in 1 year for next annual exam or sooner if needed Assessment & Plan (04/22/2019 1:25 PM BLASTING CAP ASSEMBLER): -Pt feeling well without complaints -Preventative screening up to date or ordered as below -Pt to call insurance re: shingles vaccine to see if it is covered -Will have DEXA again in May 2019 - Pt started on daily aspirin for heart health and with history of hypercoagulable state with malignancy Plan: 1) Labs as below 2) RTC in 1 year for next annual exam or sooner if needed Primary osteoarthritis of both knees 03/24/2019 Assessment & Plan (03/01/2024 8:41 PM BLASTING CAP ASSEMBLER): - Chronic - Follows with Ortho - Q 3 month steroid injections - Management as per ortho Assessment & Plan (07/16/2023 9:58 PM CDT): - Chronic - Follows with Ortho - Q 3 month steroid injections - Management as per ortho Assessment & Plan (11/07/2022 11:07 AM CDT): - Chronic - Follows with Ortho - Q 3 month steroid injections - Management as per ortho Assessment & Plan (11/01/2021 10:32 AM CDT): - Chronic - Follows with Ortho - Q 3 month steroid injections, will increase to Q 6 months after next visit - Management as per ortho Assessment & Plan (05/03/2021 10:36 AM BLASTING CAP ASSEMBLER): - Chronic - Follows with Ortho - Q 3 month steroid injections Assessment & Plan (03/25/2019 12:39 PM BLASTING CAP ASSEMBLER): Patient has a history of rheumatoid arthritis. She should continue with her rheumatoid medications. With reactive synovitis of both knees patient elected undergo cortisone injections today. She tolerated the procedures well. Long-term weight loss would likely be beneficial Chronic diarrhea 02/05/2019 Assessment & Plan (06/04/2019 11:22 AM CDT): -will add Imodium to the regimen of antidiarrheals. Symptoms most likely secondary to IBS with diarrhea. -will also add methylcellulose or Benefiber one tbsp once to twice a day. To be titrated up slowly. -discussed the pathophysiology, working of GI tract including colon In detail. Assessment & Plan (04/08/2019 11:40 AM BLASTING CAP ASSEMBLER): .-ongoing for last 5-10 years. -status post cholecystectomy. Post cholecystectomy diarrhea? -history of H pylori infection, status post treatment. No change in the symptom of diarrhea. -associated with fecal incontinence -on symptomatic treatment with Lomotil. -gets colonoscopies every 5 years for surveillance. Last one was in 2017. No evidence of IBD on previous colonoscopies. -history of NSAID use including ibuprofen in the past. -microscopic colitis high on differential. Will schedule for a colonoscopy with biopsies for further evaluation. -in the meantime will initiate therapy with methylcellulose to be used daily. She will continue using Lomotil on a as needed basis. Also recommended her to use kambucha as a probiotic source as much as she can. She does not like eating yogurt. -infectious etiologies are low on differential. However to make sure will do stool ova and parasite since she has had symptoms for years. And will also do fecal leukocytes to evaluate for any inflammatory etiology. -if the above given testing is unremarkable will do a therapeutic trial of with the Questran for postcholecystectomy diarrhea. Assessment & Plan (03/21/2019 10:24 AM BLASTING CAP ASSEMBLER): - Chronic - Diary shows approx 3 episodes/day - No change in the frequency of diarrhea even with treatment of H. Pylori - Other causes of diarrhea work-up from previous visit negative (celiac, crypto, ova/parasite) - Next colonoscopy due 2020 Plan: - Lomotil - GI referral Assessment & Plan (02/06/2019 11:08 AM BLASTING CAP ASSEMBLER): - Chronic, Stable - Previous GI work-up done, but pt unaware that they determined a cause - Colonoscopy 09/2015 - Noninfectious gastroenteritis and colitis, repeat in 5 yrs - DDx: Crohns, UC, Pancreatitis, Malabsorption 2/2 iron def, Celiac, Lactose Intolerance Plan: - Labs as below - Pt instructed to avoid dairy to see if that is contributing - Pt to continue Lomotil Atherosclerosis of aorta 12/10/2018 Assessment & Plan (03/01/2024 8:53 PM BLASTING CAP ASSEMBLER): - Chronic, Stable - Pt w/o CP, palpitations - Pt taking aspirin 81 mg/day and atorvastatin 80 mg/day Assessment & Plan (11/21/2023 11:10 AM CDT): - Chronic, Stable - Pt w/o CP, palpitations - Pt taking aspirin 81 mg/day and atorvastatin 80 mg/day Assessment & Plan (07/16/2023 10:12 PM CDT): - Chronic, Stable - Pt w/o CP, palpitations - Pt taking aspirin 81 mg/day and atorvastatin 40 mg/day Assessment & Plan (11/01/2021 10:29 AM CDT): - Chronic, Stable - Pt w/o CP, palpitations - Pt taking aspirin 81 mg/day and atorvastatin 40 mg/day Assessment & Plan (05/03/2021 10:23 AM BLASTING CAP ASSEMBLER): - Chronic, Stable - Pt w/o CP, palpitations - Pt taking aspirin 81 mg/day and atorvastatin 40 mg/day Assessment & Plan (09/04/2020 10:18 AM CDT): - Chronic, Stable - Pt w/o CP, palpitations - Pt taking aspirin 81 mg/day and atorvastatin 40 mg/day History of breast cancer 12/26/2017 Assessment & Plan (03/01/2024 8:44 PM BLASTING CAP ASSEMBLER): - Chronic, Stable - Pt completed Anastrazole 11/2022 - Next appointment with Oncology 11/2023 Plan: - As per oncology team Assessment & Plan (11/21/2023 10:27 AM CDT): - Chronic, Stable - Pt completed Anastrazole 11/2022 - Next appointment with Oncology 11/2023 Plan: - As per oncology team Assessment & Plan (07/16/2023 10:01 PM CDT): - Chronic, Stable - Pt completed Anastrazole 11/2022 - Next appointment with Oncology 11/2023 Plan: - As per oncology team Assessment & Plan (11/07/2022 11:12 AM CDT): - Chronic, Stable - Pt on Anastrazole 1 mg daily x 5 yrs (will stop anastrazole 2022) - Next appointment with AZEB Licea 05/2023 Plan: - As per oncology team Assessment & Plan (05/09/2022 10:43 AM BLASTING CAP ASSEMBLER): - Chronic, Stable - Pt on Anastrazole 1 mg daily x 5 yrs (will stop anastrazole 2022) - Next appointment with Dr. Licea Plan: - As per oncology team Assessment & Plan (11/01/2021 10:19 AM CDT): - Chronic, Stable - Pt on Anastrazole 1 mg daily x 5 yrs (will stop anastrazole 2022) - Next appointment with Dr. Licea Plan: - As per oncology team Assessment & Plan (01/04/2021 9:56 AM CDT): - Chronic, Stable - Pt on Anastrazole 1 mg daily x 5 yrs and Vit E for hot flashes - Next f/u in 1 yr for surgery, 3 months for med onc, and 6 months for Radiation Plan: - As per oncology team Assessment & Plan (01/09/2020 10:10 AM CDT): - Chronic, Stable - Pt on Anastrazole 1 mg daily x 5 yrs and Vit E for hot flashes - Next f/u in 1 yr for surgery, 3 months for med onc, and 6 months for Radiation Plan: - As per oncology team Assessment & Plan (01/14/2019 9:53 AM CDT): - Chronic, Stable - Pt on Anastrazole 1 mg daily x 5 yrs and Duloxetine 30 mg for hot flashes 2/2 cancer treatment - Next f/u in 1 yr for surgerym 3 months for med onc and 6 months for Radiation Plan: - As per oncology team Malignant neoplasm of lower-inner quadrant of fe male breast 04/10/2017 Cancer Staging:Pathologic stage from 01/25/2017:Stage IA(pT2, pN1a(sn), cM0, G1, ER: Positive, DC: Positive, HER2: Negative) - Signed by Nolvia Regan MD on 08/21/2017 Rheumatoid arthritis involving multiple joints 0 10/12/2016 Assessment & Plan (11/21/2024 10:30 AM CDT): - Chronic, stable - Following with Dr. Overton (Rheum) - On Plaquenil 200 mg with no adverse effects Plan: - Management as per rheum Assessment & Plan (03/01/2024 8:40 PM BLASTING CAP ASSEMBLER): - Chronic, stable - Following with Dr. Overton (Rheum) - Looking for a Cephalometric Analyst closer to home - On Plaquenil 200 mg with no adverse effects Plan: - Management as per rheum Assessment & Plan (07/16/2023 9:52 PM CDT): - Chronic, stable - Following with Dr. Overton (Rheum) - Looking for a Cephalometric Analyst closer to home - On Plaquenil 200 mg with no adverse effects - Denies current joint pain or stiffness Plan: - Management as per rheum Assessment & Plan (11/07/2022 11:06 AM CDT): - Chronic, stable - Following with Dr. Overton at [facility] - On Plaquenil 200 mg with no adverse effects - Denies current joint pain or stiffness Plan: - Management as per rheum Assessment & Plan (05/09/2022 10:40 AM BLASTING CAP ASSEMBLER): - Chronic, stable - Following with Dr. Overton at [facility] - On Plaquenil 200 mg with no adverse effects - Denies current joint pain or stiffness Plan: - Management as per rheum Assessment & Plan (11/01/2021 10:12 AM CDT): - Chronic, stable - Following with Dr. Overton at [facility] - On Plaquenil 200 mg with no adverse effects - Denies current joint pain or stiffness Plan: - Management as per rheum Assessment & Plan (01/04/2021 9:57 AM CDT): - Chronic, stable - Following with Dr. Overton at [facility] - On Plaquenil 200 mg with no adverse effects - Denies current joint pain or stiffness Plan: - Management as per rheum Assessment & Plan (01/09/2020 10:11 AM CDT): - Chronic, stable - Following with Dr. Overton at [facility] - On Plaquenil 200 mg with no adverse effects - Denies current joint pain or stiffness Plan: - Management as per rheum Assessment & Plan (02/06/2019 11:15 AM BLASTING CAP ASSEMBLER): - Chronic, stable - Following with Dr. Overton at [facility] - On Leflunomide 20 mg with no adverse effects - Denies current joint pain or stiffness Plan: - Management as per rheum Long-term current use of hig h risk medication other than anticoagulant 10/12/2016 HOSSEIN (obstructive sleep apnea) 06/05/2014 Assessment & Plan (11/21/2024 10:31 AM CDT): Chronic Follows with sleep med doctors Working on lifestyle modifications Other hyperlipidemia 08/03/2013 Overview (02/20/2024): --- 02/20/24 The 10-year ASCVD risk score (Lea CHAIREZ, et al., 2019) is: 21.9% Values used to calculate the score: Age: 74 years Sex: Female Is Non- : Yes Diabetic: Yes Tobacco smoker: No Systolic Blood Pressure: 124 mmHg Is BP treated: Yes HDL Cholesterol: 41 mg/dL Total Cholesterol: 144 mg/dL Improved Continue Atorvastatin 80 mg/day --- 11/28/23 The 10-year ASCVD risk score (Lea CHAIREZ, et al., 2019) is: 23.8% Values used to calculate the score: Age: 73 years Sex: Female Is Non- : Yes Diabetic: Yes Tobacco smoker: No Systolic Blood Pressure: 134 mmHg Is BP treated: Yes HDL Cholesterol: 46 mg/dL Total Cholesterol: 139 mg/dL Improved Continue Atorvastatin 80 mg/day --- 07/22/23 The 10-year ASCVD risk score (Lea CHAIREZ, et al., 2019) is: 30.4% Values used to calculate the score: Age: 73 years Sex: Female Is Non- : Yes Diabetic: Yes Tobacco smoker: No Systolic Blood Pressure: 153 mmHg Is BP treated: Yes HDL Cholesterol: 52 mg/dL Total Cholesterol: 144 mg/dL Increase atorvastatin 40 mg/day -> 80 mg/day --- 11/23/22 The 10-year ASCVD risk score (Lea CHAIREZ, et al., 2019) is: 24.2% Values used to calculate the score: Age: 72 years Sex: Female Is Non- : Yes Diabetic: Yes Tobacco smoker: No Systolic Blood Pressure: 124 mmHg Is BP treated: Yes HDL Cholesterol: 50 mg/dL Total Cholesterol: 165 mg/dL Continue atorvastatin 40 mg Repeat in 6 months, if not sig improved, increase to atorvastatin 80 mg.day --- 11/12/21 The 10-year ASCVD risk score (Leonard DIALLO Jr., et al., 2013) is: 24.6% Values used to calculate the score: Age: 71 years Sex: Female Is Non- : Yes Diabetic: Yes Tobacco smoker: No Systolic Blood Pressure: 132 mmHg Is BP treated: Yes HDL Cholesterol: 53 mg/dL Total Cholesterol: 156 mg/dL Continue atorvastatin 40 mg/day. If no improvement in 6 months -> 80 mg/day --- 05/05/21 The 10-year ASCVD risk score (Leonard DIALLO Jr., et al., 2013) is: 21.5% Values used to calculate the score: Age: 71 years Sex: Female Is Non- : Yes Diabetic: Yes Tobacco smoker: No Systolic Blood Pressure: 124 mmHg Is BP treated: Yes HDL Cholesterol: 53 mg/dL Total Cholesterol: 149 mg/dL Improved, continue atorvastatin 40 mg/day --- 08/27/20 Lab Results Component Value Date CHOL 151 08/26/2020 CHOL 170 09/02/2019 CHOL 166 05/22/2018 Lab Results Component Value Date HDL 46 08/26/2020 HDL 62 09/02/2019 HDL 49 05/22/2018 Lab Results Component Value Date LDLCALC 91 08/26/2020 LDLCALC 90 09/02/2019 LDLCALC 102 05/22/2018 Lab Results Component Value Date TRIG 72 08/26/2020 TRIG 92 09/02/2019 TRIG 77 05/22/2018 No results found for: POCCHDLR No results found for: POCNONHDL No results found for: POCCHLPL The 10-year ASCVD risk score (Leonard DIALLO Jr. et al., 2013) is: 30.7% Values used to calculate the score: Age: 70 years Sex: Female Is Non- : Yes Diabetic: Yes Tobacco smoker: No Systolic Blood Pressure: 160 mmHg Is BP treated: Yes HDL Cholesterol: 46 mg/dL Total Cholesterol: 151 mg/dL Pt advised: Your cholesterol levels in conjunction with blood pressure, age, race, smoking status, and gender put her at elevated risk for heart attack/stroke. Continue Atorvastatin 40 mg to help decrease that risk. We will recheck your heart attack/stroke risk score in 6. If still elevated or not improved, we may increase atorvastatin to 80 mg daily. Assessment & Plan (03/01/2024 8:54 PM BLASTING CAP ASSEMBLER): - Chronic - Continue Atorvastatin 80 mg/day - Patient advised: You should continue to eat healthy (decrease sugary beverages, fried foods, processed foods, and fast food), exercise at least 30-45 minutes 5 days each week, drink lots of water, and eat plenty of fruits and vegetables to prevent onset or worsening of chronic diseases such as diabetes, high blood pressure, and high cholesterol. - Repeat lipid panel Assessment & Plan (11/21/2023 11:23 AM CDT): - Chronic - Continue Atorvastatin 80 mg/day - Patient advised: You should continue to eat healthy (decrease sugary beverages, fried foods, processed foods, and fast food), exercise at least 30-45 minutes 5 days each week, drink lots of water, and eat plenty of fruits and vegetables to prevent onset or worsening of chronic diseases such as diabetes, high blood pressure, and high cholesterol. - Repeat lipid panel Assessment & Plan (07/16/2023 10:15 PM CDT): - Chronic, Worsening -The 10-year ASCVD risk score (Lea CHAIREZ, et al., 2019) is: 33.4% Values used to calculate the score: Age: 73 years Sex: Female Is Non- : Yes Diabetic: Yes Tobacco smoker: No Systolic Blood Pressure: 153 mmHg Is BP treated: Yes HDL Cholesterol: 50 mg/dL Total Cholesterol: 165 mg/dL - Continue Atorvastatin 40 mg/day - If no improvement by next check, will increase to 80 mg/day of Atorvastatin - Patient advised: You should continue to eat healthy (decrease sugary beverages, fried foods, processed foods, and fast food), exercise at least 30-45 minutes 5 days each week, drink lots of water, and eat plenty of fruits and vegetables to prevent onset or worsening of chronic diseases such as diabetes, high blood pressure, and high cholesterol. Assessment & Plan (11/07/2022 11:31 AM CDT): - Chronic, Stable - ASCVD 23->21->23 -The 10-year ASCVD risk score (Lea CHAIREZ, et al., 2019) is: 23.2% Values used to calculate the score: Age: 72 years Sex: Female Is Non- : Yes Diabetic: Yes Tobacco smoker: No Systolic Blood Pressure: 124 mmHg Is BP treated: Yes HDL Cholesterol: 47 mg/dL Total Cholesterol: 160 mg/dL - Continue Atorvastatin 40 mg/day Assessment & Plan (11/01/2021 10:27 AM CDT): - Chronic, Improved - ASCVD 23->21 -The 10-year ASCVD risk score (Leonard DIALLO Jr., et al., 2013) is: 21.5% Values used to calculate the score: Age: 71 years Sex: Female Is Non- : Yes Diabetic: Yes Tobacco smoker: No Systolic Blood Pressure: 124 mmHg Is BP treated: Yes HDL Cholesterol: 53 mg/dL Total Cholesterol: 149 mg/dL - Continue Atorvastatin 40 mg/day Assessment & Plan (05/03/2021 10:25 AM BLASTING CAP ASSEMBLER): - Chronic, Improved - ASCVD 23->21 -The 10-year ASCVD risk score (Leonard DIALLO Jr., et al., 2013) is: 21.1% Values used to calculate the score: Age: 71 years Sex: Female Is Non- : Yes Diabetic: Yes Tobacco smoker: No Systolic Blood Pressure: 124 mmHg Is BP treated: Yes HDL Cholesterol: 46 mg/dL Total Cholesterol: 151 mg/dL - Continue Atorvastatin 40 mg/day Assessment & Plan (09/04/2020 10:19 AM CDT): - Chronic, Improved -The 10-year ASCVD risk score (Leonard DIALLO Jr. et al., 2013) is: 23.7% Values used to calculate the score: Age: 70 years Sex: Female Is Non- : Yes Diabetic: Yes Tobacco smoker: No Systolic Blood Pressure: 136 mmHg Is BP treated: Yes HDL Cholesterol: 46 mg/dL Total Cholesterol: 151 mg/dL - Continue Atorvastatin 40 mg/day Assessment & Plan (09/02/2019 11:51 AM CDT): The 10-year ASCVD risk score (Leonard DIALLO Jr., et al., 2013) is: 25.5% Values used to calculate the score: Age: 69 years Sex: Female Is Non- : Yes Diabetic: Yes Tobacco smoker: No Systolic Blood Pressure: 138 mmHg Is BP treated: Yes HDL Cholesterol: 49 mg/dL Total Cholesterol: 166 mg/dL -Pt to continue Lipitor 10 mg daily with repeat cholesterol levels today -Will consider increasing Lipitor to 40 mg daily Assessment & Plan (02/06/2019 11:11 AM BLASTING CAP ASSEMBLER): -Based on 05/2018 - ascvd indicates moderate -> high intensity statin -Pt to continue Lipitor 10 mg daily -Will repeat May 2019 Hypertension 08/03/2013 Overview (02/01/2023): --- 05/14/21 Spironolactone 25->12.5 mg/day due to decrease GFR Patient to monitor BPs Assessment & Plan (03/01/2024 8:52 PM BLASTING CAP ASSEMBLER): - BP is reasonably well controlled - HTN complicated by: Kidney Disease - No Changes, Pt to Continue the following: Amlodipine 5 mg/day (LE edema while on Amlodipine 10 mg/day), Spironolactone 12.5 mg and Aspirin 81 mg/day - RBA of meds reviewed. - EKG: NSR 08/2018 - Statin is: indicated and is on board - Secondary HTN workup: Not warranted -Lifestyle measures: Add up how much salt you are eating and keep this under 2 g per day. Maintain a healthy BMI (BMI 18.5-24.9). DASH diet (lots of fruits/veggies, low-fat dairy w/ reduced content of sat and total fat). Exercise for at least 30 minutes 5-7 days/week so you have to breathe through your mouth. Avoid excess alcohol (>2 drinks for men, > 1 drink in women and light wt pts). - Return to clinic for follow up in 3 months. - Blood Pressure Follow-up: Lifestyle modifications education provided on sodium reduction, increase physical activity, and weight reduction. Assessment & Plan (11/21/2023 11:20 AM CDT): - BP is reasonably well controlled - HTN complicated by: Occasional pain from recent surgery - Changes to Medications Amlodipine 10 -> 5 mg/day (LE edema), Spironolactone 12.5 mg and Aspirin 81 mg/day - RBA of meds reviewed. - EKG: NSR 08/2018 - Statin is: indicated and is on board - Secondary HTN workup: Not warranted -Lifestyle measures: Add up how much salt you are eating and keep this under 2 g per day. Maintain a healthy BMI (BMI 18.5-24.9). DASH diet (lots of fruits/veggies, low-fat dairy w/ reduced content of sat and total fat). Exercise for at least 30 minutes 5-7 days/week so you have to breathe through your mouth. Avoid excess alcohol (>2 drinks for men, > 1 drink in women and light wt pts). - Return to clinic for follow up in 3 months. - Blood Pressure Follow-up: Lifestyle modifications education provided on sodium reduction, increase physical activity, and weight reduction. Assessment & Plan (07/16/2023 10:11 PM CDT): - BP is poorly controlled - HTN complicated by: Occasional pain from recent surgery - No Changes - Continue Amlodipine 10 mg daily and Spironolactone 12.5 mg and Aspirin 81 mg/day and Chlorthalidone 25 mg/day. If no improvement by next visit, will make med changes - RBA of meds reviewed. - EKG: NSR 08/2018 - Statin is: indicated and is on board - Secondary HTN workup: Not warranted -Lifestyle measures: Add up how much salt you are eating and keep this under 2 g per day. Maintain a healthy BMI (BMI 18.5-24.9). DASH diet (lots of fruits/veggies, low-fat dairy w/ reduced content of sat and total fat). Exercise for at least 30 minutes 5-7 days/week so you have to breathe through your mouth. Avoid excess alcohol (>2 drinks for men, > 1 drink in women and light wt pts). - Return to clinic for follow up in 3 months. - Blood Pressure Follow-up: Lifestyle modifications education provided on sodium reduction, increase physical activity, and weight reduction. Assessment & Plan (11/07/2022 11:19 AM CDT): - BP is stable and reasonably well controlled - HTN complicated by: Nothing - No Changes - Continue Amlodipine 10 mg daily and Spironolactone 12.5 mg and Aspirin 81 mg/day and Chlorthalidone 25 mg/day - RBA of meds reviewed. - EKG: NSR 08/2018 - Statin is: indicated and is on board - Secondary HTN workup: Not warranted -Lifestyle measures: Add up how much salt you are eating and keep this under 2 g per day. Maintain a healthy BMI (BMI 18.5-24.9). DASH diet (lots of fruits/veggies, low-fat dairy w/ reduced content of sat and total fat). Exercise for at least 30 minutes 5-7 days/week so you have to breathe through your mouth. Avoid excess alcohol (>2 drinks for men, > 1 drink in women and light wt pts). - Return to clinic for follow up in 6 months. Assessment & Plan (05/09/2022 10:49 AM BLASTING CAP ASSEMBLER): - BP is stable and reasonably well controlled - HTN complicated by: Nothing - No Changes - Continue Amlodipine 10 mg daily and Spironolactone 12.5 mg and Aspirin 81 mg/day and Chlorthalidone 25 mg/day - RBA of meds reviewed. - EKG: NSR 08/2018 - Statin is: indicated and is on board - Secondary HTN workup: Not warranted -Lifestyle measures: Add up how much salt you are eating and keep this under 2 g per day. Maintain a healthy BMI (BMI 18.5-24.9). DASH diet (lots of fruits/veggies, low-fat dairy w/ reduced content of sat and total fat). Exercise for at least 30 minutes 5-7 days/week so you have to breathe through your mouth. Avoid excess alcohol (>2 drinks for men, > 1 drink in women and light wt pts). - Return to clinic for follow up in 6 months. Assessment & Plan (11/01/2021 10:26 AM CDT): - BP is stable and reasonably well controlled - HTN complicated by: Nothing - No Changes - Continue Amlodipine 10 mg daily and Spironolactone 12.5 mg daily - RBA of meds reviewed. - EKG: NSR 08/2018 - Statin is: indicated and is on board - Secondary HTN workup: Not warranted -Lifestyle measures: Add up how much salt you are eating and keep this under 2 g per day. Maintain a healthy BMI (BMI 18.5-24.9). DASH diet (lots of fruits/veggies, low-fat dairy w/ reduced content of sat and total fat). Exercise for at least 30 minutes 5-7 days/week so you have to breathe through your mouth. Avoid excess alcohol (>2 drinks for men, > 1 drink in women and light wt pts). - Return to clinic for follow up in 6 months. Assessment & Plan (05/03/2021 10:25 AM BLASTING CAP ASSEMBLER): - BP is stable and reasonably well controlled - HTN complicated by: Nothing - No Changes - Continue Amlodipine 10 mg daily and Spironolactone 25 mg daily - RBA of meds reviewed. - EKG: NSR 08/2018 - Statin is: indicated and is on board - Secondary HTN workup: Not warranted -Lifestyle measures: Add up how much salt you are eating and keep this under 2 g per day. Maintain a healthy BMI (BMI 18.5-24.9). DASH diet (lots of fruits/veggies, low-fat dairy w/ reduced content of sat and total fat). Exercise for at least 30 minutes 5-7 days/week so you have to breathe through your mouth. Avoid excess alcohol (>2 drinks for men, > 1 drink in women and light wt pts). - Return to clinic for follow up in 6 months. Assessment & Plan (09/04/2020 10:19 AM CDT): - BP is stable and reasonably well controlled - HTN complicated by: Nothing - No Changes - Continue Amlodipine 10 mg daily and Spironolactone 25 mg daily - RBA of meds reviewed. - EKG: NSR 08/2018 - Statin is: indicated and is on board - Secondary HTN workup: Not warranted -Lifestyle measures: Add up how much salt you are eating and keep this under 2 g per day. Maintain a healthy BMI (BMI 18.5-24.9). DASH diet (lots of fruits/veggies, low-fat dairy w/ reduced content of sat and total fat). Exercise for at least 30 minutes 5-7 days/week so you have to breathe through your mouth. Avoid excess alcohol (>2 drinks for men, > 1 drink in women and light wt pts). - Return to clinic for follow up in 6 months. Assessment & Plan (09/02/2019 11:52 AM CDT): - BP is stable and reasonably well controlled - HTN complicated by: Nothing - No Changes - Continue Amlodipine 10 mg daily and Spironolactone 25 mg daily - RBA of meds reviewed. - EKG: NSR 08/2018 - Statin is: indicated and is on board - Secondary HTN workup: Not warranted -Lifestyle measures: Add up how much salt you are eating and keep this under 2 g per day. Maintain a healthy BMI (BMI 18.5-24.9). DASH diet (lots of fruits/veggies, low-fat dairy w/ reduced content of sat and total fat). Exercise for at least 30 minutes 5-7 days/week so you have to breathe through your mouth. Avoid excess alcohol (>2 drinks for men, > 1 drink in women and light wt pts). - Return to clinic for follow up in 6 months. Prescribed enough antiHTN meds to last until just past the follow up visit. Refills require a [id number] visit before the medication runs out and will not be refilled over the phone. Assessment & Plan (03/21/2019 10:28 AM BLASTING CAP ASSEMBLER): - BP is well controlled and stable - HTN complicated by: Nothing - Changes to Medications Increase Amlodipine to 10 mg/day, continue sprinolocatone 25 mg/day - - RBA of meds reviewed. - EKG: NSR 08/2018 - Statin is: indicated and is on board - Secondary HTN workup: Not warranted -Lifestyle measures: Add up how much salt you are eating and keep this under 2 g per day. Maintain a healthy BMI (BMI 18.5-24.9). DASH diet (lots of fruits/veggies, low-fat dairy w/ reduced content of sat and total fat). Exercise for at least 30 minutes 5-7 days/week so you have to breathe through your mouth. Avoid excess alcohol (>2 drinks for men, > 1 drink in women and light wt pts). - Return to clinic for follow up in 6 months. Prescribed enough antiHTN meds to last until just past the follow up visit. Refills require a [id number] visit before the medication runs out and will not be refilled over the phone. Assessment & Plan (01/14/2019 9:56 AM CDT): - BP is well controlled - HTN complicated by: Nothing - No Changes - Continue Spironolactone and [id number] - RBA of meds reviewed. - EKG:CHARLA from PCP completed - Statin is: indicated and is on board - Secondary HTN workup: Not warranted -Lifestyle measures: Add up how much salt you are eating and keep this under 2 g per day. Maintain a healthy BMI (BMI 18.5-24.9). DASH diet (lots of fruits/veggies, low-fat dairy w/ reduced content of sat and total fat). Exercise for at least 30 minutes 5-7 days/week so you have to breathe through your mouth. Avoid excess alcohol (>2 drinks for men, > 1 drink in women and light wt pts). - Return to clinic for follow up in 6 months. Prescribed enough antiHTN meds to last until just past the follow up visit. Refills require a [id number] visit before the medication runs out and will not be refilled over the phone. Type 2 diabetes mellitus wit h hyperglycemia, without long-term current use of insulin 08/03/2013 Overview (07/14/2023): --- 07/14/23 Lab Results Component Value Date HGBA1C 7.6 (H) 07/05/2023 Continue Metformin and Pioglitazone Patient cannot afford Janumet and does not qualify for assistance Recent back surgery limits activity --- 08/27/20 Pt mentioned that higher doses of Metformin caused nausea and GI upset and cost was a factor for other meds in the past. Will reach out to clinical pharm to help review other options. --- 08/27/20 Lab Results Component Value Date HGBA1C 7.5 (H) 08/26/2020 Pt advised: Your A1C test for diabetes is slowly creeping back up. My goal for you is less than 7 and it is currently 7.5. I want to go up on your Metformin from 500 mg twice per day to 850 mg twice per day.Continue the 30mg of Pioglitazone. You should continue to eat healthy (decrease sugary beverages, fried foods, processed foods, and fast food), exercise at least 30-45 minutes 5 days each week, drink lots of water, and eat plenty of fruits and vegetables to prevent onset or worsening of chronic diseases such as diabetes, high blood pressure, and high cholesterol. Assessment & Plan (11/21/2024 10:30 AM CDT): -Diabetes is reasonably well controlled. -Disease course complicated by None -Medication Plan: Continue Metformin 500 mg BID and Pioglitazone 30 mg daily -Statin is indicated. -Microalb/Cr was not at goal at last check for albumin/creatinine -Issues reviewed with her: diabetic diet discussed in detail, written exchange diet given, low cholesterol diet, weight control and daily exercise discussed, home glucose monitoring emphasized, all medications, side effects and compliance discussed carefully, foot care discussed and Podiatry visits discussed, annual eye examinations at Ophthalmology discussed, glycohemoglobin and other lab monitoring discussed and supervisor long goods diabetic complications discussed. Assessment & Plan (03/01/2024 8:49 PM BLASTING CAP ASSEMBLER): -Diabetes is reasonably well controlled. -Disease course complicated by None -Medication Plan: Continue Metformin 500 mg BID and Pioglitazone 30 mg daily -Statin is indicated. -Microalb/Cr was not at goal at last check for albumin/creatinine -Issues reviewed with her: diabetic diet discussed in detail, written exchange diet given, low cholesterol diet, weight control and daily exercise discussed, home glucose monitoring emphasized, all medications, side effects and compliance discussed carefully, foot care discussed and Podiatry visits discussed, annual eye examinations at Ophthalmology discussed, glycohemoglobin and other lab monitoring discussed and [facility] diabetic complications discussed. Assessment & Plan (11/21/2023 11:03 AM CDT): -Diabetes is reasonably well controlled. -Disease course complicated by None -Medication Plan: Continue Metformin 1000 mg/day and Pioglitazone 30 mg daily -Statin is indicated. -Microalb/Cr was not at goal at last check for albumin/creatinine -Issues reviewed with her: diabetic diet discussed in detail, written exchange diet given, low cholesterol diet, weight control and daily exercise discussed, home glucose monitoring emphasized, all medications, side effects and compliance discussed carefully, foot care discussed and Podiatry visits discussed, annual eye examinations at Ophthalmology discussed, glycohemoglobin and other lab monitoring discussed and [facility] diabetic complications discussed. Assessment & Plan (11/07/2022 11:33 AM CDT): -Diabetes is reasonably well controlled. -Disease course complicated by None -Medication Plan: Continue Sitagliptin-Metformin 100-1000 mg/day and Pioglitazone 30 mg daily -Statin is indicated. -Microalb/Cr was not at goal at last check for albumin/creatinine -Issues reviewed with her: diabetic diet discussed in detail, written exchange diet given, low cholesterol diet, weight control and daily exercise discussed, home glucose monitoring emphasized, all medications, side effects and compliance discussed carefully, foot care discussed and Podiatry visits discussed, annual eye examinations at Ophthalmology discussed, glycohemoglobin and other lab monitoring discussed and [facility] diabetic complications discussed. - [facility] paperwork completed Assessment & Plan (05/09/2022 10:50 AM BLASTING CAP ASSEMBLER): -Diabetes is reasonably well controlled. -Disease course complicated by None -Medication Plan: Continue Sitagliptin-Metformin 100-1000 mg/day and Pioglitazone 30 mg daily -Statin is indicated. -Microalb/Cr was not at goal at last check for albumin/creatinine -Issues reviewed with her: diabetic diet discussed in detail, written exchange diet given, low cholesterol diet, weight control and daily exercise discussed, home glucose monitoring emphasized, all medications, side effects and compliance discussed carefully, foot care discussed and Podiatry visits discussed, annual eye examinations at Ophthalmology discussed, glycohemoglobin and other lab monitoring discussed and supervisor long goods diabetic complications discussed. Assessment & Plan (11/01/2021 10:24 AM CDT): -Diabetes is reasonably well controlled. -Disease course complicated by None -Medication Plan: Continue Metformin 500 mg BID and Pioglitazone 30mg daily and Trulicity 1.5 mg weekly -Statin is indicated. -Microalb/Cr was not at goal at last check for albumin/creatinine -Issues reviewed with her: diabetic diet discussed in detail, written exchange diet given, low cholesterol diet, weight control and daily exercise discussed, home glucose monitoring emphasized, all medications, side effects and compliance discussed carefully, foot care discussed and Podiatry visits discussed, annual eye examinations at Ophthalmology discussed, glycohemoglobin and other lab monitoring discussed and mcfp diabetic complications discussed. Assessment & Plan (06/30/2021 3:25 PM CDT): - Patient to raymond Gt due to s/e of vaginitis - She will restart metformin and continue Pioglitazone - Rybelsus started 3 mg daily x 1 month Assessment & Plan (05/03/2021 10:24 AM BLASTING CAP ASSEMBLER): -Diabetes is well controlled. -Disease course complicated by None -Medication Plan: Continue Metformin 500 mg BID and Pioglitazone 30mg daily -Statin is indicated. -Microalb/Cr was not at goal at last check for albumin/creatinine -Issues reviewed with her: diabetic diet discussed in detail, written exchange diet given, low cholesterol diet, weight control and daily exercise discussed, home glucose monitoring emphasized, all medications, side effects and compliance discussed carefully, foot care discussed and Podiatry visits discussed, annual eye examinations at Ophthalmology discussed, glycohemoglobin and other lab monitoring discussed and supervisor long goods diabetic complications discussed. -Follow up visit pending A1C results Assessment & Plan (09/04/2020 10:18 AM CDT): -Diabetes is needs improvement. -Disease course complicated by None -Medication Plan: Continue Metformin 500 mg BID and Pioglitazone 30mg daily (pt to talk with pharmacist today) -Statin is indicated. -Microalb/Cr was not at goal at last check for albumin/creatinine -Issues reviewed with her: diabetic diet discussed in detail, written exchange diet given, low cholesterol diet, weight control and daily exercise discussed, home glucose monitoring emphasized, all medications, side effects and compliance discussed carefully, foot care discussed and Podiatry visits discussed, annual eye examinations at Ophthalmology discussed, glycohemoglobin and other lab monitoring discussed and supervisor long goods diabetic complications discussed. -Follow up visit pending A1C results Assessment & Plan (01/09/2020 10:06 AM CDT): -Diabetes is well controlled. -Disease course complicated by None -Medication Plan: Continue Metformin 500 mg BID and Pioglitazone 30mg daily -Statin is indicated. -Microalb/Cr was not at goal at last check for albumin/creatinine -Issues reviewed with her: diabetic diet discussed in detail, written exchange diet given, low cholesterol diet, weight control and daily exercise discussed, home glucose monitoring emphasized, all medications, side effects and compliance discussed carefully, foot care discussed and Podiatry visits discussed, annual eye examinations at Ophthalmology discussed, glycohemoglobin and other lab monitoring discussed and mcfp diabetic complications discussed. -Follow up visit pending A1C results Assessment & Plan (10/28/2019 11:14 AM CDT): - Chronic, Stable - Fell in [facility] [place] [place] with Medicare D and no longer able to afford Trulicity - Will stop Trulicity and start Metformin 500 mg BID (will gradually work up) in addition to continuing the Pioglitazone 30 mg daily - Pt made aware of adverse effects - Will repeat A1C January 2020 - Eduin Perry - Met with pt during visit as well Assessment & Plan (09/02/2019 11:54 AM CDT): -Diabetes is poorly controlled. -Disease course complicated by None -Medication Plan: Trulicity 1.5 mg/0.5 mL weekly and Pioglitazone 30mg daily -Statin is indicated. -Microalb/Cr was not at goal at last check for albumin/creatinine -Issues reviewed with her: diabetic diet discussed in detail, written exchange diet given, low cholesterol diet, weight control and daily exercise discussed, home glucose monitoring emphasized, all medications, side effects and compliance discussed carefully, foot care discussed and Podiatry visits discussed, annual eye examinations at Ophthalmology discussed, glycohemoglobin and other lab monitoring discussed and supervisor long goods diabetic complications discussed. -Follow up visit pending A1C results Assessment & Plan (06/05/2019 1:58 PM CDT): Lab Results Component Value Date HGBA1C 10.2 (H) 06/05/2019 Will restart Trulicity weekly and continue Actos 15 mg daily Repeat A1C in 3 months Assessment & Plan (01/14/2019 9:59 AM CDT): -Diabetes is improved. Overall, DM control is stable. -Disease course complicated by None -Medication Plan: Trulicity 0.75 mg/0.5 mL weekly and Pioglitazone 15 mg daily -Statin is indicated. -Microalb/Cr is unknown if at goal -Issues reviewed with her: diabetic diet discussed in detail, written exchange diet given, low cholesterol diet, weight control and daily exercise discussed, home glucose monitoring emphasized, all medications, side effects and compliance discussed carefully, foot care discussed and Podiatry visits discussed, annual eye examinations at Ophthalmology discussed, glycohemoglobin and other lab monitoring discussed and supervisor long goods diabetic complications discussed. -Follow up visit needed in 6 months Vitamin D deficiency 11/06/2011 Assessment & Plan (02/07/2023 8:00 AM BLASTING CAP ASSEMBLER): - Chronic, Stable - Pt had been taking 1000 mg/day for the last few months - Stopped 2/2 hypercalcemia - Continue to monitor levels Assessment & Plan (11/01/2021 10:13 AM CDT): - Chronic, Stable - Pt has been taking 1000 mg/day for the last few months - Repeat Vit D levels - Continue current management Assessment & Plan (01/04/2021 10:12 AM CDT): - Chronic, Stable - Pt has been taking 1000 mg/day for the last few months - Labs WNL 10/2020 - Continue current management Assessment & Plan (01/09/2020 10:11 AM CDT): - Chronic, Stable - Pt has been taking 1000 mg/day for the last few months - Will repeat today Assessment & Plan (02/06/2019 11:28 AM BLASTING CAP ASSEMBLER): - Chronic, Stable - Pt has been taking 1000 mg/day for the last few months - She wants to defer to Dr. Frances to check that lab Resolved Problems Problem Noted Date Diagnosed Date Resolved Date Pain in toe 09/22/2021 11/01/2021 Vaginal feli 08/25/2021 11/01/2021 Cystitis with hematuria 07/03/202110/18 Vaginal itching 06/30/2021 11/21/2023 Assessment & Plan (07/16/2023 9:54 PM CDT): - Recurrent - Concern for UTI, yeast, sunitha changes (recent meds and surgery) - Diflucan (Patient will avoid the oxycodone) - Monitor glucose levels and modify diet/exercise - If no improvement, in office visit needed to discuss further Assessment & Plan (08/24/2021 3:04 PM CDT): - Recurrent - Concern for UTI, yeast, sunitha changes (recent meds) - Repeat labs - Trimethoprim x 3 days - Diflucan (Patient will avoid the zofran and oxycodone x 1 week) - Patient to continue Plaquenil Assessment & Plan (06/30/2021 3:20 PM CDT): - Acute - Likely 2/2 Synjardy (D/C'd) - Concern for yeast infection (Patient using clotrimazole topical ointment due to diflucan interaction with Plaquenil) - UA and vaginitis panel ordered - Treatment based on results - Stop clotrimazole switch to Brexafemme Morbid (severe) obesity due to excess calories 05/05/2021 11/01/2021 Leukocytopenia 08/27/2020 05/04/2021 Assessment & Plan (05/03/2021 10:36 AM BLASTING CAP ASSEMBLER): - Repeat CBC today Constipation 11/17/2019 05/11/2020 Assessment & Plan (11/18/2019 9:52 AM CDT): - Reason for ER visit - Initially improved with enema and increase fiber/water, but has returned to constipation - Pt willing to try suppository and changing from Docusate -> Docusate + Senna - Encouraged pt to continue water intake - Will also write for a suppository - Pt to reach out to GI for support as well Fecal impaction 11/13/2019 05/06/2020 Stool contents finding, abnormal 11/13/2019 05/06/2020 Elevated blood pressure reading 11/13/2019 05/06/2020 Flank pain 10/28/2019 05/06/2020 Assessment & Plan (10/28/2019 11:12 AM CDT): - Chronic, Stable - DDx: Ovarian cyst, MSK, UTI or nephrolithiasis less likely based on recent renal appt - Pt not taking NSAIDs and only PRN tylenol - Refusing further work up at this time Abdominal pain 09/16/2019 05/06/2020 Assessment & Plan (09/16/2019 9:59 AM CDT): -secondary to kidney stone. She is taking cranberry juice. She will talk to a body care manager. I did tell her that I can give her Levsin or dicyclomine which would also help with occasional abdominal pain secondary to kidney stone in case she does not get pain medication from her body care manager. She will let me know and we can do the need full if needed. Rheumatoid arthritis involvi ng right knee with positive rheumatoid factor 08/29/2019 05/06/19 21 Weight loss 07/18/2019 05/06/2020 Assessment & Plan (07/31/2019 11:44 AM CDT): - Subacute, resolved Wt Readings from Last 3 Encounters: 07/31/19 92.8 kg (204 lb 8 oz) 07/18/19 90.6 kg (199 lb 12.8 oz) 07/16/19 90.7 kg (200 lb) - Weight up 5 lbs since last visit - Will CTM Nausea and vomiting 07/16/2019 05/06/19 21 Assessment & Plan (07/31/2019 12:24 PM CDT): - Subacute, improved - Only a few nausea episodes and no vomiting since last visit - No diarrhea - Now takes medications on a full stomach as opposed to an empty stomach like before Assessment & Plan (07/18/2019 9:57 AM CDT): Symptoms ongoing for 3-4 weeks -note that she had the gastritis with presence of hemorrhage on endoscopy, upper endoscopy. Colonoscopy showed presence of a tubular adenoma. The biopsies were negative for presence of microscopic colitis. -recommended her to eat a substantial breakfast before taking the medications in the morning. Recommended to eat food about 2-2 hours after taking her medication in the morning. -recommended ring coconut water which has not and nausea properties. -Zofran could not be prescribed to her due to her being on hydroxychloroquine secondary to the QT prolonging effect. -she will continue with reduced dose of omeprazole at 20 mg daily. -she is COVID -19 negative. She has lab test ordered by her primary care physician Dr. Singleton tomorrow. Assessment & Plan (07/16/2019 12:06 PM CDT): - Subacute, worsening - Emesis x 1 - Possibly 2/2 decreased BMs now that pt is on Imodium - Assoc with unintentional weight loss (14 lbs in 1-2 months) - considering infectious, liver, or pancreatic pathology - Less likely - but thyroid dysfunction considered - Pt also with decreased appetite and loss of taste. With comorbidities cannot rule out COVID-19 - Labs as below - Will also refer to access center for COVID-19 testing - Pt to also reach out to GI to see if other recs Unintentional weight loss 07/16/2019 Assessment & Plan (07/18/2019 9:57 AM CDT): -will continue watchful monitoring -she will add Ensure, boost to her diet. -recommended other dietary intervention as stated and nausea and vomiting. Loss of taste 07/16/2019 01/08/2020 Gastroesophageal reflux dise ase without esophagitis 06/04/2019 05/11/2020 Assessment & Plan (06/04/2019 11:22 AM CDT): -on therapy with 40 mg of omeprazole a day at this time. She has also been treated for gastritis with presence of hemorrhage noted on upper endoscopy. Will continue with this dose at this time. In 3 months on her follow-up will consider going down to 20 mg a day dose. Elevated ferritin level 05/14/2019 06 Overview (05/16/2019): Recent diagnosis of Feli and Gastritis by GI - likely contributing Repeat Ferritin in 6 months Esophageal candidiasis (CMS/HCC) 05/07/2019 04/29/2021 Assessment & Plan (05/07/2019 1:01 PM BLASTING CAP ASSEMBLER): -proven with cytology brushing. -will initiate therapy with fluconazole 20 mg loading dose followed by 100 mg for to complete a 14 day course. Acute superficial gastritis without hemorrhage 05/07/2019 05/06/2020 Assessment & Plan (05/07/2019 1:01 PM BLASTING CAP ASSEMBLER): -on twice a day PPI therapy at this time. Will continue to complete 12 week course then will taper down the dose slowly. S/P cholecystectomy 04/08/2019 05/06/19 Assessment & Plan (04/08/2019 11:41 AM BLASTING CAP ASSEMBLER): As noted under chronic diarrhea. History of Helicobacter pylori infection 04/08/2019 05/06/2020 Assessment & Plan (04/08/2019 11:41 AM BLASTING CAP ASSEMBLER): Status post treatment. Will check for complete eradication in April during follow-up visit. Incontinence of feces 04/07/20192022 Assessment & Plan (04/08/2019 11:41 AM BLASTING CAP ASSEMBLER): As noted under chronic diarrhea. Intertrigo 03/21/2019 01/04/2021 Assessment & Plan (03/21/2019 10:29 AM BLASTING CAP ASSEMBLER): - Located under abdominal skin fold - Itchy, erythematous with satellite lesions - Will treat with Ketoconazole 2 % cream BID x 4 weeks H. pylori infection 02/11/2019 05/06/19 21 Microalbuminuria 02/06/2019 05/06/2020 Assessment & Plan (02/06/2019 11:34 AM BLASTING CAP ASSEMBLER): - Uncertain etiology - Possibly 2/2 long hx of DM or dehydration - Will repeat today Skin lesion 01/14/2019 07/31/2019 Assessment & Plan (01/14/2019 10:06 AM CDT): - Subacute (2 weeks ago), Recurrent - Left gluteal - Ruptured, dried lesions - Improved with Cortisone cream - Not actively draining - unable to culture - DDx: Healing shingles, atopic dermatitis, contact dermatitis Plan: - Continue OTC Cortisone - No antiviral at this time as symptoms started > 72 hrs ago - RTC if returns or fails to continue to improve Arthritis of right knee 12/12/201804/20 Osteoarthritis of left knee 12/12/2018 05/06/2020 Physical deconditioning 12/07/201804/20 Overview (12/07/2018): From cancer treatment Gait instability 12/07/2018 05/06/2020 Overview (12/07/2018): From cancer treatment. Chronic bilateral low back pain 10/12/2016 07/31/2019 Overview (02/06/2019): Follows with pain management Dr. Arben De Dios ([facility] [place] [address] and [facility]) - spinal cord stimulator Allergic rhinitis 06/05/2014 05/03/2021 Asthma 06/05/2014 05/11/2020 Glaucoma 06/05/2014 05/11/2020 Long-term insulin use 06/05/20142019 Encounters Date Type Department Care Team Description 11/25/2024 10:50 AM CDT Lab [id number] [place] [id number] Type 2 diabetes mellitus with hyperglycemia, without long-term current use of insulin (HCC) 11/25/2024 Results Follow-Up [facility] at [address] [place] [address] Inessa Sapp MD Thyroid Function [place], Hemoglobin A1c, Comprehensive metabolic panel, Additional followed-up results: 4 11/21/2024 9:30 AM CDT Office Visit [facility] at [address] [phone] Inessa Sapp MD Encounter for Medicare annual wellness exam (Primary Dx); Preop examination; Type 2 diabetes mellitus with hyperglycemia, without long-term current use of insulin (HCC); Diabetic peripheral neuropathy (HCC); Type 2 diabetes mellitus with hyperglycemia, unspecified whether supervisor long goods insulin use (HCC); Rheumatoid arthritis involving multiple joints (HCC); Type 2 diabetes mellitus without complication, without long-term current use of insulin (HCC); HOSSEIN (obstructive sleep apnea); Stage 3b chronic kidney disease (HCC) 11/21/2024 Telephone Family [facility] at [address] [phone] Inessa Sapp MD Surgical Clearance 11/14/2024 Telephone [facility] at [address] [address] Inessa Sapp MD Med Refill 11/14/2024 ACO Medication Access [facility] Accountable Care Organization [address] [place] [id number] Karina Recio, [facility] 11/12/2024 Orders Only [facility] at [address] [phone] Inessa Sapp MD 11/01/2024 Telephone [facility] at [address] [phone] Inessa Sapp MD Forms Request from Last 3 Months Immunizations Immunization Administration Dates Next Due COVID-19 mRNA (PFIZER) 0.3 m L (30 mcg) vaccine (12 years and up) 12/21/2023,01/10/2023 Influenza, Quadrivalent, Hig h Dose, Preservative Free, Intrr 12/06/2021,01/13/2021,11/18/2019 Influenza, Quadrivalent, Spl it, Intramuscular 01/04/2016 Influenza, Split 11/22/2012,11/10/2011, 1 Influenza, Trivalent, High D ose, Split, Preservative Free, Intramuscular 12/21/2023,12/20/2017,01/12/2017 Influenza, Trivalent, IM (MDV) 3,10/19/2011,02/01/2010,02/19,01/22/2007,02/20/2006 Influenza, Unspecified 12/17/2022,11/22/2022,03/2018 Pfizer SARS-CoV-2 Monovalent Vaccination (12+ Yrs) PURPLE 01/02/2021,05/20/2020,04/29/2020 Pfizer SARS-CoV-2 Monovalent Vaccination (5-11 Yrs) 06/27/2021 Pneumococcal Conjugate PCV 13 05/22/2018 Pneumococcal Polysaccharide PPV23 02/03/2015 Tdap 01/14/2019 ZOSTER Recombinant 10/12/2020,04/25/2019 Surgical History Surgery Date Site/Laterality Comments HYSTERECTOMY 1979's CHOLECYSTECTOMY 03/20/2017 - 03/19/2018 PORT PLACEMENT CHEST >5 YEARS 03/17/2017 N/A COLONOSCOPY 03/20/2015 - 03/19/2016 last one 2015 SPINAL CORD STIMULATOR IMPLANT 03/20/2014 - 03/19/2015 removed 01/2023 PORT REMOVAL 03/20/2017 - 03/19/2018 TRIGGER FINGER RELEASE 05/18/2018 - 06/17/2018 Right right thumb trigger cubital tunnel BREAST LUMPECTOMY 03/20/2016 - 03/19/2017 Right RT POSITIVE BREAST BIOPSY 01/2020, 2017 01/2020 Benign bilaterally; 2017 Right + BREAST SURGERY 01/31/2020 lat flap LUMBAR DISCECTOMY 1989's RECONSTRUCTION BREAST W/ LATISSIMUS DORSI FLAP 2020 - 02/17/2020 Right REDUCTION MAMMOPLASTY 2020 - 02/17/2020 Left BACK SURGERY 06/08/2021 Decompression of the Lumbar REDUCTION MAMMAPLASTY 03/20/2016 - 03/19/2017 Left AUGMENTATION MAMMAPLASTY 03/20/2021 - 03/19/2022 COSMETIC SURGERY 2020 SPINE SURGERY 2011 Medical History Medical History Date Comments Hx Other Medical spinal cord sti mulator Rheumatoid arthritis (HCC) Dxd 2 014--- Currently treated with Plaquenil; Followed by Dr Overton Hypertension DXd ~1999 Cataract Type 2 diabetes mellitus Dxd 201 2 History of chemotherapy right br east 2017 History of radiation therapy apr 2017 right breast Back pain Arthritis Wears glasses Herniation of lumbar intervertebral disc herniated lumbar discs History of breast cancer Right d xd 2017 s/p lumpectomy and radiation (last 2017) Hyperlipidemia Treated with sta tin Obstructive sleep apnea syndrome 11/06/2011 + Sleep study ~2011-- Stopped using CPAP machine ~2014 because pt didn't think she needed it anymore CKD (chronic kidney disease) Sta ge 3 CKD-- Followed by DR Calix S/P cholecystectomy 04/08/2019 History of Helicobacter pylori infection 020 Breast cancer (HCC) right Lymphedema right arm and tr unk Irritable bowel syndrome diarrhe a Family History Medical History Relation Name Comments No Known Problems Brother 1 Heart attack Father Robert Arthritis Mother Balbina arthritis; Diabetes Mother Balbina Hypertension Mother Balbina Kidney disease Mother Balbina Cancer Mother's Sister Flores female Ovarian cancer Mother's Sister Flores No Known Problems Sister 1 Brain Aneurysm Sister 2 Bobbi Kidney disease Sister 3 Ninfa Asthma Son Chetan Anesthesia problems Neg Hx Benign Breast Condition Neg Hx Endometrial cancer Neg Hx Thyroid cancer Neg Hx Relation Name Status Comments Brother 1 Alive Brother 2 robert unknown cause Brother 3 Deacon unknow cause Cousin Alive MATERNAL COUSIN Father Robert Mother Balbina Mother's Sister Flores Sister 1 Alive Sister 2 Bobbi Sister 3 Ninfa Son Chetan Social History Tobacco Use Types Packs/Day Years Used Date Smoking Tobacco: Never Smokeless Tobacco: Never Tobacco Cessation:Counseling Given: No Alcohol Use Standard Drinks/Week Comments Yes 1 (1 standard drink = 0.6 oz pur e alcohol) social OASIS D0700: Social Isolation Answer Da te Recorded Frequency of experiencing loneliness or isolatio n Never 05/10/2023 OASIS A1250: Transportation Answer Date Recorded Lack of Transportation (Medical) No 05/10/2023 Lack of Transportation (Non-Medical) No 05/10/2023 Patient Unable or Declines to Respond No 05/10/2023 OASIS B1300: Health Literacy Answer Kit e Recorded Frequency of needing help to read materials from doctor or pharmacy Never 05/10/2023 AUDIT-C Answer Date Recorded Q1: How often do you have a drink containing alc ohol? Monthly or less 02/19/2024 Q2: How many drinks containi ng alcohol do you have on a typical day when you are drinking? 1 or 2 02/19/2024 Q3: How often do you have si x or more drinks on one occasion? Less than monthly 02/19/2024 PHQ-2 Answer Date Recorded PHQ-2 Total Score 0 11/21/2024 PHQ-9 Answer Date Recorded PHQ-9 Total Score 0 11/21/2024 Personal Safety Answer Date Recorded Have you ever been in or are you currently in a harmful physical or emotional relationship or is someone making you feel afraid or unsafe? Denies 06/25/2024 Comments No Sex and Gender Information Value Date Recorded Sex Assigned at Not on file Legal Sex Female 12:21 AM BLASTING CAP ASSEMBLER Gender Identity Female 04/16/2019 1:38 PM BLASTING CAP ASSEMBLER Sexual Orientation Straight 03/18/2019 1: 47 PM BLASTING CAP ASSEMBLER Obstetrics History Para Term AB IAB SAB Ectopic Multiple Livin g Live Births 2 2 2 Date Outcome GA Total Labor Labor/2nd/3rd Weight Sex Type Anes PTL Nasreen A1 A5 Name Clin Term Term Last Filed Vital Signs Vital Sign Reading Time Taken Comments Blood Pressure 122/68 11/21/2024 9:39 AM CDT Pulse 83 11/21/2024 9:39 AM CDT Temperature 36.8 C (98.2 F) 11/21/2024 9:39 AM CDT Respiratory Rate 20 11/21/2024 9:39 AM CDT Oxygen Saturation 98% 11/21/2024 9:39 AM CDT Inhaled Oxygen Concentration - - Weight 100.7 kg (222 lb 1.6 oz) 11/21/2024 9:39 AM CDT Height 152.4 cm (5') 11/21/2024 9:39 AM CDT Body Mass Index 43.38 11/21/2024 9:39 AM CDT Plan of Treatment Health Maintenance Due Date Last Done Comments Covid-19 Vaccine (6 - Pfizer risk season) 2024 12/21/2023, 01/10/2023, 06/27/2021, Additional history exists Influenza Vaccine (#1) 2024 , 12/17/2022, 11/22/2022, Additional history exists Hemoglobin A1C 05/25/2025 11/25/2024, 04/2023, 11/28/2023, Additional history exists Colon Cancer Screening-Colonoscopy 06/25/2025 06/25/2024, 04/16/2019 Dilated Eye Exam 10/30/2025 10/30/2024, , 05/07/2021, Additional history exists Depression Screening 11/21/2025 11/21/2024, 11/21/2024, 02/19/2024, Additional history exists Fall Risk Assessment 11/21/2025 11/21/2024, 06/25/2024, 11/21/2023, Additional history exists Foot Exam 11/21/2025 11/21/2024, 05/2023, 11/01/2021, Additional history exists Well Visit 65+ 11/21/2025 11/21/2024, 05/2023, 05/09/2022, Additional history exists Albumin Creatinine Ratio, Urine 11/25/2025 11/25/2024, 02/19/2024, 11/28/2023, Additional history exists Lipid Panel 11/25/2025 11/25/2024, 04/2023, 11/28/2023, Additional history exists eGFR 11/25/2025 11/25/2024, 05/18, 03/07/2024, Additional history exists Osteoporosis Screening-Bone Density Scan 11/27/2025 11/28/2023, 11/01/2021, 09/03/2019, Additional history exists DTaP/Tdap/Td Vaccine (2 - Td or Tdap) 01/14/2029 01/14/2019 Pneumococcal vaccine 65+ Completed 05/22/2018, 01/18 Hepatitis C Screening Completed 03/30/2019 Zoster Vaccine Completed 10/12/2020, 04/25/2019 Hepatitis B Screening Completed 11/28/2023 Breast Cancer Screening-Mammogram Discontinued 12/15/2023, 12/01/2022, 01/04/2022, Additional history exists Colon Cancer Screening-CT Colonography Discontinued 06/25/2024, 04/16/2019 Colon Cancer Screening-DNA Stool Discontinued 06/26/19 25, 04/16/2019 Colon Cancer Screening-FIT Discontinued 06/25/2024, Colon Cancer Screening-Sigmoidoscopy Discontinued 06/25/2024, 04/16/2019 Medical Devices Implanted Type Area Chocolate Finisher Operator Device Identifier Shelf Expiration Date Model / Serial / Lot [id number] [employer]ian 2754 [place] 3mm Ring Pin Ultrasonic Doppler 20mhz Autom[employer] Damage Field Appraiser Anastomosis Latex Free - [id number] Implanted:Qty: 1 on 07/15/2021 by Funmi Dickerson MD at [facility] Clip Right: Forearm [employer] [id number] 12/22/2025 [id number] / / [id number] [employer]! Allian 2753 [place] 2.5mm Ring Pin Ultrasonic Doppler 20mhz Automobile Damage Field Appraiser Anastomosis Latex Free - [id number] Implanted:Qty: 1 on 07/15/2021 by Funmi Dickerson MD at [facility] Right: Arm Peer60s AF83 [id number] 12/08/2025 [id number] / / [id number] Spinal Cord Stimulator Explanted:Qty: 1 on 01/31/2023 by Rolando Parker MD Left: Hip [place] [employer] Cage Spinal 8.5-13mm Expandable Tlif [id number] Deg [id number] - [id number] Implanted:Qty: 1 on 03/31/2023 by Rolando Parker MD at [facility] N/A: Spine Lumbar [employer] [id number] / / Zav[employer] Llc Zavation 5.5mm 50mm Prebent [place]bin Spinal Nonsterile Latex Free Mis 13-C050 - [id number] Implanted:Qty: 2 on 03/31/2023 by Rolando Parker MD at [facility] N/A: Spine Lumbar [employer] 13-C050 / / Bioventus Osteoamp Select Fiber 2.5cc Oasf-025 - [id number] - [id number] Implanted:Qty: 1 on 03/31/2023 by Rolando Parker MD at [facility] Right: Spine Lumbar BIOVENTUS 10/24/2027 OASF-025 / [id number] / Bioventus Osteoamp Select Fiber 2.5cc Oas-025 - [id number] - [id number] Implanted:Qty: 1 on 03/31/2023 by Rolando Parker MD at [facility] Right: Spine Lumbar BIOVENTUS 10/24/2027 OAS-025 / [id number] / Medtronic Inc Infuse 20ga 2x1in Vial Absorbable Syringe Needle Medium Graft 5.6 [id number] - [id number] Implanted:Qty: 1 on 03/31/2023 by Rolando Parker MD at [facility] Right: Spine Lumbar Medtronic Inc 09/17/2024 [id number] / / [id number] Zavation [facility] Zavation Danelle Blunt Smooth Spine Wire Fixation Nonsterile 210-1003-2 - [id number] Implanted:Qty: 4 on 03/31/2023 by Rolando Parker MD at [facility] N/A: Spine Lumbar [employer] 210-1003-2 / / Zav[employer] Llc Zavation 6.5mm 50mm Cannulated Extend Tab Reduction Spine Screw 13r-6550 - [id number] Implanted:Qty: 4 on 03/31/2023 by Rolando Parker MD at [facility] N/A: Spine Lumbar [employer] 13R-6550 / / Zavation [facility] Zavation Spine Screw Set Nonsterile - [id number] Implanted:Qty: 4 on 03/31/2023 by Rolando Parker MD at [facility] N/A: Spine Lumbar [employer] / / Explanted Type Area Chocolate Finisher Operator Device Identifier Shelf Expiration Date Model / Serial / Lot Port A Cath Explanted:Qty: 1 on 12/06/2017 at [facility] Other Procedures Procedure Name Priority Date/Time Associated Diagnosis Comments EGFR Routine 11/25/2024 10:48 AM CDT Type 2 diabetes mellitus with hyperglycemia, without long-term current use of insulin (HCC) VITAMIN B12 Routine 11/25/2024 10:48 AM CDT Type 2 diabetes mellitus with hyperglycemia, without long-term current use of insulin (HCC) ALBUMIN CREATININE RATIO, URINE Routine 11/25/2024 10:48 AM CDT Type 2 diabetes mellitus with hyperglycemia, without long-term current use of insulin (HCC) LIPID PANEL Routine 11/25/2024 10:48 AM CDT Type 2 diabetes mellitus with hyperglycemia, without long-term current use of insulin (HCC) COMPREHENSIVE METABOLIC PANEL Routine 11/25/2024 10:48 AM CDT Type 2 diabetes mellitus with hyperglycemia, without long-term current use of insulin (HCC) HEMOGLOBIN A1C Routine 11/25/2024 10:48 AM CDT Type 2 diabetes mellitus with hyperglycemia, without long-term current use of insulin (HCC) THYROID FUNCTION CASCADE Routine 11/25/2024 10:48 AM CDT Type 2 diabetes mellitus with hyperglycemia, without long-term current use of insulin (HCC) HM DIABETES EYE EXAM Routine 10/30/2024 12:02 AM CDT COLONOSCOPY 06/25/2024 11:35 AM CDT DIAGNOSTIC MAMMOGRAM BILATERAL W RD Schedule Routine, Read Routine (OP Routine) 12/15/2023 8:51 AM CDT Hx of breast cancer DEXA AXIAL SKELETON BONE DENSITY 1 OR MORE SITES Schedule Routine, Read Routine (OP Routine) 11/28/2023 9:10 AM CDT Annual physical exam Asymptomatic menopausal state HEPATITIS C ANTIBODY Routine 03/30/2019 9:15 AM BLASTING CAP ASSEMBLER Microalbuminuria from Last 3 Months or Most Recently Relevant to Health Maintenance Results * (ABNORMAL) eGFR (11/25/2024 10:48 AM CDT) eGFR 28(L) >=60 mL/min/1. 73 m2 Comment: Interpretive Data Reference Interval Normal >/= 90 mL/min/1.73m2 Mildly decreased* 60 - 89 mL/min/1.73m2 Mildly to moderately decreased 45 - 59 mL/min/1.73m2 Moderately to severely decreased 30 - 44 mL/min/1.73m2 Severely decreased 15 - 29 mL/min/1.73m2 Kidney Failure < 15 mL/min/1.73m2 *Relative to young adult level Estimated glomerular filtration rate is determined by the 2020 CKD-EPI equation recommended by the National Kidney Foundation (A Unifying Approach to GFR Estimation: Recommendations of the NKF-ASK Task Force on Reassessing the Inclusion of Race in Diagnosing Kidney Disease, JASN 2020). The CKD-EPI equation should not be used for patients with unstable renal function and has not been validated in children and those over 70. Current interpretive data was last reviewed 2021. Testing performed by: [facility], [facility] [place] [address] Blood 11/25/2024 10:4 8 AM CDT 11/25/2024 10:51 AM CDT Inessa Sapp MD LAB BLOOD ORDE RABLES Final Result Performing Organization Address City/[facility] de Phone Number GERARDO [id number] [address] [place] [address] * Thyroid Function [place] (11/25/2024 10:48 AM CDT) [facility] Signature TSH 2.06 0.30 - 4.20 mcIUnit/mL Comment:Testing performed by : [facility], [place] [address] Blood 11/25/2024 10:4 8 AM CDT 11/25/2024 10:51 AM CDT Inessa Sapp MD LAB BLOOD ORDE RABLES Final Result Performing Organization Address City/[facility]/[place] [address] [address] [place] [address] * Albumin Creatinine Ratio, Urine (11/25/2024 10:48 AM CDT) [facility] Albumin Ur 14.3 mg/L Comment: Interpretive Data No reference range established. Current interpretive data was last revised 2018. Creatinine Ur 210.1 mg/dL [facility] Comment: Interpretive Data No reference range established. Current interpretive data was last revised 2018. Albumin Creatinine Ratio, Ur 7 1 - 29 mg/g [facility] Urine 11/25/2024 10:4 8 AM CDT 11/25/2024 1:19 PM CDT Inessa Sapp MD LAB URINE ORDE RABLES Final Result Performing Organization Address [facility] Co de Phone Number CHRISTIANOCODY [phone] [place] [address] * (ABNORMAL) Hemoglobin A1c (11/25/2024 10:48 AM CDT) [facility] Hgb A1C 7.0(H) 4.0 - 5.6 % Estimated Average Glucose 154 mg/dL [facility] Comment: The ADA recommends reporting an estimated Average Glucose (eAG) with all Hemoglobin A1c results using the equation derived from a study of 507 normal and diabetic adults. Minority populations were underrepresented and children were not included. (Diabetes Care 31:3810-4193, 2008). The eAG is not equivalent to a fasting glucose. Blood 11/25/2024 10:4 8 AM CDT 11/25/2024 1:43 PM CDT Inessa Sapp MD LAB BLOOD ORDE RABLES Final Result Performing Organization Address City/[facility]/ZIP Co de Phone Number [facility] [id number] [place], [place] [id number] * Vitamin B12 (11/25/2024 10:48 AM CDT) [facility] Vitamin B12 244 230 - 1,250 pg/mL Blood 11/25/2024 10:4 8 AM CDT 11/25/2024 1:41 PM CDT Inessa Sapp MD LAB BLOOD CHRISTI GAMING Final Result GERARDO [address] [address] Department [place] [address] * Lipid panel (11/25/2024 10:48 AM CDT) Cholesterol 129 30 - 199 mg/dL Comment: Interpretive Data Ages < or = 19 years Acceptable: <170 mg/dL Borderline high: 170-199 mg/dL High: >or= 200 mg/dL Ages > or = 20 years Desirable: <200 mg/dL Borderline high: 200-239 mg/dL High: >or= 240 mg/dL Literature References: 1. Expert Panel on Integrated Guidelines for Cardiovascular Health and Risk Reduction in Children and Adolescents. Pediatrics 2011;128:S213 2. NCEP Expert Panel. Circulation 2004;110:227 Current Interpretive Data was last revised on 2017. Testing performed by: [facility], [facility] [place] [address] Triglycerides 71 <=149 mg/dL [facility] Comment: Interpretive Data Ages < or = 9 years Acceptable: <75 mg/dL Borderline high: 75-99 mg/dL High: >or= 100 mg/dL Ages 10 to 20 years Acceptable: <90 mg/dL Borderline high: 90-129 mg/dL High: >or= 130 mg/dL Ages > or = 20 years Desirable: <150 mg/dL Borderline high: 150-199 mg/dL High: 200-499 mg/dL Very high: >or= 499 mg/dL Literature References: 1. Expert Panel on Integrated Guidelines for Cardiovascular Health and Risk Reduction in Children and Adolescents. Pediatrics 2011;128:S213 2. NCEP Expert Panel. Circulation 2004;110:227 Current Interpretive Data was last revised on 2017. Testing performed by: [facility], [facility] [place] [address] HDL 44 >=40 mg/dL [facility] Comment: Interpretive Data Ages < or = 19 years Acceptable: >45 mg/dL Borderline low: 40-45 mg/dL Low: <40 mg/dL Ages > or = 20 years Desirable: >or= 60 mg/dL Low: <40 mg/dL Literature References: 1. Expert Panel on Integrated Guidelines for Cardiovascular Health and Risk Reduction in Children and Adolescents. Pediatrics 2011;128:S213 2. NCEP Expert Panel. Circulation 2004;110:227 Current Interpretive Data was last revised on 2017. Testing performed by: [facility], [address] [place] [address] LDL, calculated 71 <=129 mg/dL [facility] Comment: Interpretive Data Ages < or = 19 years Acceptable: <110 mg/dL Borderline high: 110-129 mg/dL High: >or= 130 mg/dL Ages > or = 20 years Optimal: <100 mg/dL Near optimal: 100-129 mg/dL Borderline high: 130-159 mg/dL High: >160 mg/dL Calculated using the Jh LDL-C estimating equation. This equation was implemented on 2023. Prior to this date LDL-C was estimated using the Friedewald equation. Literature References: 1. Expert Panel on Integrated Guidelines for Cardiovascular Health and Risk Reduction in Children and Adolescents. Pediatrics 2011;128:S213 2. NCEP Expert Panel. Circulation 2004;110:227 3. Jh Grant et al. TEDDY Cardiol. 2020 July 18;5(5):540-548. doi: 10.1001/jamacardio.2020.0013 Current Interpretive Data was last revised on 2023. Testing performed by: [facility], [address] [place] [address] Non-HDL Cholesterol 85 mg/dL [facility] Comment: Interpretive Data Ages < or = 19 years Acceptable: <120 mg/dL Borderline high: 120-144 mg/dL High: >145 mg/dL Ages > or = 20 years When triglycerides are >200 mg/dL, Non-HDL cholesterol is a secondary target of therapy with treatment goals that are 30 mg/dL greater than the LDL cholesterol target. Literature References: 1. Expert Panel on Integrated Guidelines for Cardiovascular Health and Risk Reduction in Children and Adolescents. Pediatrics 2011;128:S213 2. NCEP Expert Panel. Circulation 2004;110:227 Current Interpretive Data was last revised on 2017. Testing performed by: [facility], [address] [place] [address] Chol/HDL ratio 3 [facility]ER Comment:Testing performed by : [facility] [address], [place] [address] Blood 11/25/2024 10:4 8 AM CDT 11/25/2024 10:51 AM CDT Inessa Sapp MD LAB BLOOD ORDPriti GAMING Final Result [facility] [address] [address] Department [place] [address] * (ABNORMAL) Comprehensive metabolic panel (11/25/2024 10:48 AM CDT) Sodium 145 135 - 145 mmol/L Comment:Testing performed by : [facility] [address], [place] [address] Potassium, pl 5.0(H) 3.3 - 4.9 mmol/L [facility]ERNER Comment:Testing performed by : [facility] [address], [place] [address] Chloride 102 97 - 110 mmol/L [facility]ER Comment:Testing performed by : [facility] [address], [place] [address] CO2 26 22 - 32 mmol/L [facility] Comment:Testing performed by : [facility] [address], [place] [address] Anion gap 17(H) 2 - 15 mmol/L [facility]ER Comment:Testing performed by : [facility] [address], [place] [address] BUN 37(H) 6 - 25 mg/dL [facility]ER Comment:Testing performed by : [facility] [address], [place] [address] Creatinine 1.86(H) 0.60 - 1.10 mg/dL [facility] Comment:Testing performed by : [facility] [address], [place] [address] Glucose 146 70 - 199 mg/dL [facility] Comment: Interpretive Data Fasting glucose >/= 126 mg/dl is diagnostic for diabetes. Fasting is defined as no caloric intake for at least 8 hours. Fasting glucose between 100 mg/dl to 125 mg/dl is diagnostic of prediabetes. In a patient with classic symptoms of hyperglycemia or hyperglycemic crisis, a random glucose >/= 200 mg/dl is diagnostic for diabetes. In the absence of unequivocal hyperglycemia, results should be confirmed by repeat testing. The classification and Diagnosis of Diabetes Diabetes Care 2021; 46: S19-S40. Current interpretive data was last revised 2022. Testing performed by: [facility], [place] [address] Calcium 11.0(H) 8.5 - 10.3 mg/dL [facility] CH Comment:Testing performed by : [facility] [address], [place] [address] Bilirubin, total 0.6 0.1 - 1.2 mg/dL [facility] CH Comment:Testing performed by : [facility] [address], [place] [address] Protein, pl 8.5 6.5 - 8.5 g/dL [facility] CH Comment:Testing performed by : [facility] [address], [place] [address] Albumin 4.4 3.5 - 5.0 g/dL [facility] CH Comment:Testing performed by : [facility] [address], [place] [address] Alk phos 89 40 - 130 Units/L [facility] CH Comment:Testing performed by : [facility] [address], [place] [address] ALT 19 7 - 45 Units/L [facility] CH Comment:Testing performed by : [facility] [address] [address] AST 28 10 - 45 Units/L CERNER Comment:Testing performed by : [facility] [place] [address] Blood 11/25/2024 10:4 8 AM CDT 11/25/2024 10:51 AM CDT Inessa Sapp MD LAB BLOOD CHRISTI GAMING Final Result [facility] [address] [address] Department [place] [address] * DIABETES EYE EXAM (10/30/2024 12:02 AM CDT) SCRIBED DIABETIC DILATED EYE EXAM Normal Historical Provider HEALTH MAINTENANCE Final Result * Colonoscopy (06/25/2024 11:35 AM CDT) Anatomical Region Laterality Modality Other Narrative Procedure Note Kiera Grewal MD - 06/25/2024 11:35 AM CDT [facility] Endoscopy Lab Patient Name: Katie Anaya Procedure Date: 06/25/2024 11:35 AM Date of : 1950 Admit Type: Outpatient Age: 74 Gender: Female Note Status: Finalized Attending MD: Kiera Grewal M.D. Procedure Date: 06/25/2024 Procedure: Colonoscopy Indications: High risk colon cancer surveillance: Personalhistory of colonic polyps, Incidental - Chronic diarrhea Providers: Kiera Grweal M.D., Sandi Jang RN, Luca Jang, Conditioning Room Worker, Brianne Gatica CRNA (Anesthesia Staff) Referring MD: Inessa Sapp M.D. Medicines: Monitored Anesthesia Care Complications: No immediate complications. Estimated Blood Loss: Estimated blood loss was minimal. Procedure: Pre-Anesthesia Assessment: - Prior to the procedure, a History and Physicalwas performed, and patient medications and allergieswere reviewed. The patient's tolerance of previous anesthesia was also reviewed. The risks andbenefits of the procedure and the sedation options and risks were discussed with the patient. All questions were answered, and informed consent was obtained. Prior Anticoagulants: The patient has taken noanticoagulant or antiplatelet agents except for aspirin. ASAGrade Assessment: III - A patient with severe systemic disease. After reviewing the risks and benefits,the patient was deemed in satisfactory condition to undergo the procedure. - Prior to the procedure, a History and Physicalwas performed, and patient medications, allergies and sensitivities were reviewed. The patient'stolerance of previous anesthesia was reviewed. - The risks and benefits of the procedure and the sedation options and risks were discussed with the patient. All questions were answered and informed consent was obtained. After I obtained informed consent, the scope was passed under direct vision. Throughout theprocedure, the patient's blood pressure, pulse, and oxygen saturations were monitored continuously. The scopewas passed under direct vision. The Colonoscope was introduced through the anus and advanced to the the cecum, identified by appendiceal orifice andileocecal valve. The colonoscopy was performed withdifficulty due to spastic colon, post-polypectomy bleeding. Colonoscopy performed using AI (GI genius). The quality of the bowel preparation was adequateto identify polyps 6 mm and larger in size. The bowel preparation used was SUPREP via split doseinstruction. Findings: Three sessile polyps were found in the proximal ascending colon and cecum. The polyps were 1 to 2 mm in size. These polyps were removedwith a cold biopsy forceps. Resection and retrieval were complete. Two sessile polyps were found in the hepatic flexure and distal ascending colon. The polyps were 5 to 8 mm in size. These polyps were removed with a cold snare. Resection and retrieval were complete. One polyp bled post-polypectomy. For hemostasis, one hemostatic clip was successfully placed. There was no bleeding at the end of theprocedure. A 6 mm polyp was found in the colon. The polyp was sessile. The polyp was removed with a hot snare. Resection and retrieval werecomplete. Three sessile polyps were found in the sigmoid colon and descending colon. The polyps were 6 to 10 mm in size. These polyps were removed with a cold snare. Resection and retrieval were complete. One polypbled post-polypectomy. For hemostasis, three hemostatic clips were successfully placed. There was no bleeding at the end of theprocedure. Impaired visualization of the distal sigmoid colon due to colon spasticity. This persisted despite use of glucagon Non-bleeding internal hemorrhoids were found during retroflexion. The hemorrhoids were mild. The digital rectal exam was normal. Biopsies for histology were taken with a cold forceps from the right colon and left colon for evaluation of microscopic colitis. Impression: - Three 1 to 2 mm polyps in the proximal ascending colon and in the cecum, removed with a cold biopsy forceps. Resected and retrieved. - Two 5 to 8 mm polyps at the hepatic flexure andin the distal ascending colon, removed with a coldsnare. Resected and retrieved. Clip was placed. - One 6 mm polyp, removed with a hot snare.Resected and retrieved. - Three 6 to 10 mm polyps in the sigmoid colon andin the descending colon, removed with a cold snare. Resected and retrieved. Clips were placed. - Non-bleeding internal hemorrhoids. - Biopsies were taken with a cold forceps from the right colon and left colon for evaluation of microscopic colitis. Recommendation: - Discharge patient to home. - Advance diet as tolerated. - Continue present medications. - Await pathology results. - Repeat colonoscopy in 1 year for surveillancegiven polyp burden removed and limitations of left colon exam. Procedure Code(s): --- Professional --- 11569, Colonoscopy, flexible; with removal of tumor(s), polyp(s), or other lesion(s) by snare technique [id number], 59, Colonoscopy, flexible; with biopsy,single or multiple Diagnosis Code(s): --- Professional --- Z86.010, Personal history of colonic polyps D12.0, Benign neoplasm of cecum D12.3, Benign neoplasm of transverse colon (hepatic flexure or splenic flexure) D12.2, Benign neoplasm of ascending colon D12.5, Benign neoplasm of sigmoid colon D12.4, Benign neoplasm of descending colon K64.8, Other hemorrhoids CPT copyright 2020 [employer]. All rights reserved. The codes documented in this report are preliminary and upon reliability specialist reviewmay be revised to meet current compliance requirements. Dr. Kiera Grewal MD [facility] Kiera Grewal M.D. 06/25/2024 1:43:34 PM Number of Addenda: 0 Note Initiated On: 06/25/2024 11:35 AM Kiera Grewal MD ENDOSCOPY PROCEDURES Edited Result - Final * Diagnostic Mammogram Bilateral [address] Rd (12/15/2023 8:51 AM CDT) Anatomical Region Laterality Modality Breast Bilateral Mammography 12/15/2023 9:34 AM CDT Impressions 12/15/2023 9:34 AM CDT Stable treatment changes within the RIGHT breast. Increased calcifications in the upper outer LEFT breast, in particular a group of rounded calcifications, thought probably benign and six-month follow-up evaluation is recommended.. OVERALL FINAL ASSESSMENT: BI-RADS Category 3: Probably Benign. RECOMMENDATION: Recommend follow-up diagnostic breast imaging in 6 months with LEFT breast diagnostic mammogram. The radiology attending physician has personally reviewed this study, and had reviewed and/or edited this written report and agrees with it. Electronically signed by: Jelly Will M.D. Narrative 12/15/2023 9:34 AM CDT EXAMINATION: BILATERAL DIGITAL DIAGNOSTIC MAMMOGRAM INCLUDING CAD AND BILATERAL DIGITAL BREAST TOMOSYNTHESIS HISTORY: 73-year-old with history of lobular carcinoma of the RIGHT breast status post breast conservation therapy (02/2017) and adjuvant chemoradiation (completed 08/2017) with left reduction mammoplasty. COMPARISON: Multiple, most recently 12/01/2022 TECHNIQUE: Full field digital mammographic views of BOTH breasts were performed, including computer aided detection (CAD) and BILATERAL digital breast tomosynthesis (DBT). BREAST PARENCHYMAL COMPOSITION: There are scattered areas of fibroglandular density. MAMMOGRAM FINDINGS: Stable postoperative changes in the BILATERAL breast. No new suspicious mass, calcification, or distortion in the RIGHT breast. Treatment changes are again noted. Calcifications have increased within areas of fat necrosis within the upper outer LEFT breast. Grouped round appearing calcifications in the upper outer LEFT breast that appear new are not definitely associated with fat necrosis but are thought related to the same process and are probably benign. No suspicious mass is seen within the LEFT breast. [place] GENETIC COUNSELLOR IMG MAMMO PROCEDURES Final Result * Dexa Axial Skeleton Bone Density 1 or 2 Site (11/28/2023 9:10 AM CDT) Anatomical Region Laterality Modality Body N/A Other 11/28/2023 12:2 1 PM CDT Impressions 11/28/2023 12:21 PM CDT Normal bone mineral density of lumbar spine at L1-L4, total left hip and left femoral neck. Electronically signed by: Wilfrid Preston II, D.O. Narrative 11/28/2023 12:21 PM CDT Examination: Bone densitometry of the lumbar spine and the left hip History: Osteoporosis screening. Comparison: 11/01/2021. Findings: The bone densitometry of the L1-L2 region, the left femoral neck and the total left hip was calculated using dual-energy x-ray absorptiometry. Menopausal status: Post menopausal Summary: Bone mineral density (BMD) of the lumbar spine (L1-2): T-score -0.6; previously 0.3 Bone mineral density (BMD) of the left femoral neck: T-score 1.8; previously 0.5 Bone mineral density (BMD) of the total left hip: T-score 0.4; previously 0.0 Procedure Note Wilfrid Preston II, DO - 11/28/2023 Examination: Bone densitometry of the lumbar spine and the left hip History: Osteoporosis screening. Comparison: 11/01/2021. Findings: The bone densitometry of the L1-L2 region, the left femoral neck and the total left hip was calculated using dual-energy x-ray absorptiometry. Menopausal status: Post menopausal Summary: Bone mineral density (BMD) of the lumbar spine (L1-2): T-score -0.6; previously 0.3 Bone mineral density (BMD) of the left femoral neck: T-score 1.8; previously 0.5 Bone mineral density (BMD) of the total left hip: T-score 0.4; previously 0.0 IMPRESSION: Normal bone mineral density of lumbar spine at L1-L4, total left hip and left femoral neck. Electronically signed by: Wilfrid Preston II, D.O. us Inessa Sapp MD IMG DXA PROCED URES Final Result * Hepatitis C antibody (03/30/2019 9:15 AM BLASTING CAP ASSEMBLER) Hep C Ab Negative Negative GERARDO VALDEZ Blood specimen (specimen) 03/30/2019 9:15 AM BLASTING CAP ASSEMBLER 03/30/2019 1:07 PM BLASTING CAP ASSEMBLER us Leighann Calix MD LAB MICROBIOLOGY - G ENERAL ORDERABLES Final Result GERARDO [address] [address] Department [place] [address] from Last 3 Months or Most Recently Relevant to Health Maintenance Insurance [facility] MEDICARE ADVANTAGE [facility] MEDICARE ADVANTAGE Advance Directives For more information, please contact: [phone] * Full Code (Latest Code Status on File) Date Activated Date Inactivated Comments 03/31/2023 8:01 PM 04/02/2023 11:08 PM * Full Code Date Activated Date Inactivated Comments 12/16/2022 11:39 AM 12/17/2022 5:07 AM * Full Code Date Activated Date Inactivated Comments 06/09/2022 12:29 PM 06/10/2022 5:08 AM * Full Code Date Activated Date Inactivated Comments 07/15/2021 6:46 PM 07/18/2021 3:37 PM * Full Code Date Activated Date Inactivated Comments 01/31/2020 4:56 PM 02/01/2020 6:32 PM Care Teams Freight Weigher Relationship Specialty Start Date End Date Inessa Sapp MD PCP - General Family Medicine 01/14/19 Jessica Pagan DDS [address] [place] [place] [address] Dentist Dental Dietitian Assistant 04/22/19 Loreto Overton MD [address] [address] Consulting Physician Rheumatology 04/22/19 Ava Pérez MD PhD [address] [address] Surgeon Surgical Oncology 04/22/19 Jose Armando Genao DPM [address] [address] Referring Physician Podiatry 04/22/19 Leighann Calix MD [address] [place] [address] DR HAMEED NE[facility], [facility] [address] [place] [address] Consulting Physician Nephrology 04/22/19 [place] [address] [facility] [address] [place] [address] Consulting Physician Gastroenterology 04/22/19 [place] [address] [facility] [address] [address] Consulting Physician Medical Oncology 12/31/19
--- OUTSIDE RECORDS SUMMARY | 2024-11-27 11:30 | XMS_ITS | Encounter Summary ---
Author Organization [facility] Address [address] [place] [address] Phone Care Team Providers Care Licensed Sales Producer Name Role Phone Wilfrid Blackwell MD Primary Care Provider [phone] Nolvia Regan MD Unavailable [phone] Amanda Mercer PT Unavailable Unavailable Karina Frances MD Unavailable Fide Carranza MD Unavailable [phone] Inessa Sapp MD Primary Care Provider Jessica Pagan DDS Unavailable [phone] Loreto Overton MD Unavailable Ava Pérez MD PhD Unavaila ble Jose Armando Genao DPM Unavailable [phone] Leighann Calix MD Unavailable [phone] Karina Frances MD Unavailable Janeth Singh MD Unavailable [phone] Asif Demarco MD Unavailable [phone] Arben De Dios MD Unavailable + [phone] Rony Sosa MD Unavailable Aracelis Mart RPh Unavailable Kelly Vasquez OT Unavailable PuAracelis denney RPh Unavailable Aracelis Mart RPh Unavailable John Ashtyn Cifuentes REDUCING SYSTEM OPERATOR Unavailable [phone] Kelly Vasquez OT Unavailable Aracelis Mart RPh Unavailable BetancourtPabloMaya DOLAN Unavailable [phone] FournierLesley MINO Unavailable [phone] Encounter Details Date Type Department Care Team (Late st Contact Info) Description 06/02/2017 Orders Only [facility] Provider, MD [facility] [place] [address] Social History Tobacco Use Types Packs/Day Years Used Date Smoking Tobacco: Never Smokeless Tobacco: Never Alcohol Use Standard Drinks/Week Comments Yes 0 (1 standard drink = 0.6 oz pur e alcohol) Comments No Sex and Gender Information Value Date Recorded Sex Assigned at Not on file 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 Historical Provider LAB BLOOD ORDERABLES Lorraine l Result documented in this encounter Visit Diagnoses Not on filedocumented in this encounter Additional Health Concerns Infection Onset Date Last Indicated Resolved Time COVID: Suspected 07/16/2019 07/16/2019 07/18/2019 12:25 PM CDT Respiratory Infection (MARCELA), contact + droplet Comment:Automatically added due to negative COVID-19 result. 07/18/2019 07/18/2019 08/01/2019 3:0 5 AM CDT documented as of this encounter Care Teams Licensed Sales Producer Relationship Specialty Start Date End Date Wilfrid Blackwell MD PCP - General 06/22/16 01/13/19 Inessa Sapp MD PCP - General Family Medicine 01/14/19 Nolvia Regan MD [address] [place] [address] Radiation Oncologist Radiation Oncology 08/04/17 04/04/20 Amanda Mercer, YOVANI Physical Therapist Physical Therapy 08/09/17 11/21/17 Karina Frances MD Medical Oncologist/Sign Writer Hand Medical Oncology 09/14/17 12/08/19 Fide Carranza MD Surgeon Surgical Oncology 09/14/17 12/14/23 Jessica Pagan, JOSEFINAS 1224 [facility] [address] [place] [address] Dentist Dental Miller Helper Distillery 04/22/19 Loreto Overton MD 1224 [facility] [address] [place] [address] Consulting Physician Rheumatology 04/22/19 Ava Pérez MD PhD 1224 [facility] [address] [place] [address] Surgeon Surgical Oncology 04/22/19 Jose Armando Genao DPM [address] [facility] [address] [place] [address] Referring Physician Podiatry 04/22/19 Leighann Calix MD [address] [place] [address] DR YOESPH GUAMAN [facility], [facility] [address] [place] [address] Consulting Physician Nephrology 04/22/19 Karina Frances MD Medical Oncologist/Sign Writer Hand Medical Oncology 04/22/19 12/08/19 [place] [address] [address] [address] Consulting Physician Gastroenterology 04/22/19 [place] [address] [address] [address] [address] Surgeon Orthopedic Surgery 04/22/19 12/14/23 [place] [address] [address] [address] Anesthesiologist Pain Management 04/22/19 12/14/23 [place] [address] [address] [address] [address] Consulting Physician Medical Oncology 12/31/19 Aracelis Mart, [address] [place] [address] Pharmacist Pharmacy 08/28/20 02/07/21 [place] [address] [place] [address] Occupational Therapist Occupational Therapy 02/08/2102/17 Aracelis Mart, [address] [place] [address] Pharmacist Pharmacy 04/29/21 04/29/21 [address] [place] [address] Pharmacist Pharmacy 05/20/21 05/15/22 Ashtyn Lopez LPN [address] [place] [address] [address] [place] [address] ACO Care Strike Out Machine Operator 07/20/21 07/21/21 [place] [address] [place] [address] Occupational Therapist Occupational Therapy 08/12/2102/[address] [place] [address] Pharmacist Pharmacy 10/10/22 07/30/23 Pablo Betancourt MA [address] [place] [address] [address] [place] [address] ACO Care Strike Out Machine Operator 02/02/23 02/02/23 eLsley Fournier CMA [address] [place] [address] [address] [place] [address] ACO Care Strike Out Machine Operator 04/03/23 04/04/23 documented as of this encounter
--- OUTSIDE RECORDS SUMMARY | 2024-11-27 11:30 | XMS_ITS | Encounter Summary ---
Author Organization [facility] Address [address] [place] [address] Phone Care Team Providers Care Security Messenger Name Role Phone Wilfrid Blackwell MD Primary Care Provider [phone] Nolvia Regan MD Unavailable [phone] Amanda Mercer PT Unavailable Unavailable Karina Frances MD Unavailable Fide Carranza MD Unavailable [phone] Inessa Sapp MD Primary Care Provider Jessica Pagan DDS Unavailable [phone] Loreto Overton MD Unavailable Ava Pérez MD PhD Unavaila ble Jose Armando Genao DPM Unavailable [phone] Leighann Calix MD Unavailable [phone] Karina Frances MD Unavailable Janeth Singh MD Unavailable [phone] Asif Demarco MD Unavailable [phone] Arben De Dios MD Unavailable + [phone] Rony Sosa MD Unavailable PuAracelis denney RPh Unavailable Kelly Vasquez OT Unavailable PuAracelis denney RPh Unavailable Aracelis Mart RPh Unavailable Kat Lopezher SrMaya CAMPN Unavailable Kelly Vasquez OT Unavailable PuAracelis denney RPh Unavailable SerafinPabloMaya DOLAN Unavailable [phone] Irlanda Lesley HERZOG Unavailable [phone] Encounter Details Date Type Department Care Team (Latest Contact Info) Description 01/25/2017 Orders Only [facility] Scanning, Provider Social History Tobacco Use Types Packs/Day Years Used Date Smoking Tobacco: Never Smokeless Tobacco: Never Alcohol Use Standard Drinks/Week Comments Yes 0 (1 standard drink = 0.6 oz pur e alcohol) Comments Unknown Sex and Gender Information Value Date Recorded Sex Assigned at Not on file 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 Gender Identity Female 04/16/2019 1:38 PM 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 Sexual Orientation Straight 03/18/2019 1: 47 PM 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 documented as of this encounter Plan of Treatment Not on file documented as of this encounter Procedures Procedure Name Priority Date/Time Associated Diagnosis Comments SCAN - PATHOLOGY 01/25/2017 documented in this encounter Results * SCAN - PATHOLOGY (01/25/2017) us Provider Scanning Final Result documented in this encounter Visit Diagnoses Not on filedocumented in this encounter Additional Health Concerns Infection Onset Date Last Indicated Resolved Time COVID: Suspected 07/16/2019 07/16/2019 07/18/2019 12:25 PM CDT Respiratory Infection (MARCELA), contact + droplet Comment:Automatically added due to negative COVID-19 result. 07/18/2019 07/18/2019 08/01/2019 3:0 5 AM CDT documented as of this encounter Care Teams Security Messenger Relationship Specialty Start Date End Date Wilfrid Blackwell MD PCP - General 06/22/16 01/13/19 Inessa Sapp MD PCP - General Family Medicine 01/14/19 Nolvia Regan MD [address] [place] [address] Radiation Oncologist Radiation Oncology 08/04/17 04/04/20 Amanda Mercer, PT Physical Therapist Physical Therapy 08/09/17 11/21/17 Karina Frances MD Medical Oncologist/Marriage Counselor Medical Oncology 09/14/17 12/08/19 Fide Carranza MD Surgeon Surgical Oncology 09/14/17 12/14/23 Jessica Pagan, DDS 1224 [facility] [address] [place] [address] Dentist Dental Marine Extension Agent 04/22/19 Loreto Overton MD 1224 [facility] [address] [place] [address] Consulting Physician Rheumatology 04/22/19 Ava Pérez MD PhD 1224 [facility] [address] [place] [address] Surgeon Surgical Oncology 04/22/19 Jose Armando Genao DPM 1224 [facility] [address] [place], [place] [address] Referring Physician Podiatry 04/22/19 Leighann Calix MD [address] [place] [address] DR YOSEPH GUAMAN NEPHROLOGY, [facility] [address] [place] [address] Consulting Physician Nephrology 04/22/19 Karina Frances MD Medical Oncologist/Marriage Counselor Medical Oncology 04/22/19 12/08/19 [place] [address] [facility] [address] [place] [address] Consulting Physician Gastroenterology 04/22/19 [place] [address] [facility] [address] [place] [address] Surgeon Orthopedic Surgery 04/22/19 12/14/23 [place] [address] [facility] [address] [place] [address] Anesthesiologist Pain Management 04/22/19 12/14/23 [place] [address] [facility] [address] [place] [address] Consulting Physician Medical Oncology 12/31/19 Aracelis Mart, [address] [facility] [address] [place] [address] Pharmacist Pharmacy 08/28/20 02/07/21 [place] [address] [place] [address] Occupational Therapist Occupational Therapy 02/08/2102/17 Aracelis Mart [address] [place] [address] Pharmacist Pharmacy 04/29/21 04/29/21 Aracelis Mart [address] [place] [address] Pharmacist Pharmacy 05/20/21 05/15/22 Ashtyn Lopez LPN [address] [place] [address] [address] [place] [address] ACO Care Foreign Language Stenographer 07/20/21 07/21/21 [place] [address] [place] [address] Occupational Therapist Occupational Therapy 08/12/2102/17 Aracelis Mart [address] [place] [address] Pharmacist Pharmacy 10/10/22 07/30/23 Pablo Betancourt MA [address] [place] [address] [address] [place] [address] ACO Care Foreign Language Stenographer 02/02/23 02/02/23 Lesley Fournier CMA [address] [place] [address] [address] [place] [address] ACO Care Foreign Language Stenographer 04/03/23 04/04/23 documented as of this encounter
--- OUTSIDE RECORDS SUMMARY | 2024-11-27 11:30 | XMS_ITS ---
Author Organization [facility] Address [address] [place] [address] Care Team Providers Care Lawn Service Supervisor Name Role Phone Inessa Sapp MD Primary Care Provider Jessica Pagan DDS Unavailable [phone] Loreto Overton MD Unavailable Ava Pérez MD PhD Unavaila ble Jose Armando Genao DPM Unavailable [phone] Leighann Calix MD Unavailable [phone] Janeth Singh MD Unavailable [phone] Rony Sosa MD Unavailable Active Problems Problem Noted Date Diagnosed Date [...] 02/07/2023 Assessment & Plan (02/07/2023 8:03 AM GLASS CLEANER): - Chronic, Stable - PRN Zyrtec Breakdown [...] intake Assessment & Plan (05/09/2022 11:13 AM GLASS CLEANER): - Noted on exam - Bilat 1+ [...] S/P insertion of spinal cord stimulator 04/07/19 Assessment & Plan (11/01/2021 10:25 AM CDT): - Chronic - Has spinal stimulator in place - Not on any meds - Management as per Dr. 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 Parker (per Patient only visit if stimulator acting up) Lumbosacral radiculopathy 04/06/2021 Assessment & Plan (03/01/2024 8:58 PM GLASS CLEANER): - Chronic - Had spinal stimulator in place - removed 01/2023 - Lumbar fusion 03/2023 - Completed Physical Therapy - Management as per Dr. Parker Assessment & Plan (02/07/2023 7:59 AM GLASS CLEANER): - Chronic - Had spinal stimulator in [...] CMP today - Patient following with Dr. Calix - Patient advised: Kidney function decreased consistent [...] worse. Assessment & Plan (03/01/2024 8:50 PM GLASS CLEANER): - Repeat CMP today - Patient following with Yogi - Patient advised: Kidney function mildly decreased [...] Repeat CMP today - Patient following with Ygoi Urine abnormality 08/27/2020 Overview (07/22/2023): --- 07/22/23 [...] (02/01/2023): Added automatically from request for surgery [id number] Assessment & Plan (11/21/2023 11:02 AM CDT): [...] sleeve Assessment & Plan (05/09/2022 10:43 AM GLASS CLEANER): - Chronic - 2/2 breast cancer - Physical Therapy twice/week (completed) - Continue present management - Patient has sleeve Assessment & Plan (11/01/2021 10:35 AM CDT): - Chronic - 2/2 breast cancer - Physical Therapy twice/week - Continue present management Irritable bowel syndrome with diarrhea Assessment & Plan (02/07/2023 8:01 AM GLASS CLEANER): - Chronic, Improved - Taking Loperamide PRN - Management per GI Assessment & Plan (01/31/2022 11:04 AM GLASS CLEANER): -symptoms improved. Occasional symptom. + fecal incontinence -recommended use of soluble fiber supplementation once to twice daily. Also recommended use of Imodium on a p.r.n. basis. Refill given. Assessment & Plan (11/01/2021 10:34 AM CDT): - Chronic - Taking PRN Metamucil and Loperamide PRN - Management per GI Assessment & Plan (05/03/2021 10:29 AM GLASS CLEANER): - Chronic - Taking Metamucil and Loperamide PRN Assessment & Plan (02/01/2021 12:59 PM GLASS CLEANER): -recommended use of soluble fiber supplementation once [...] IBS. Assessment & Plan (05/07/2019 1:01 PM GLASS CLEANER): -symptoms improved. Have recommended to go up on the dose of her methylcellulose. She will also continue with the recommendations made on initial clinic visit. Encounter for Medicare annual wellness exam 05/2019 Assessment & Plan (11/22/2024 1:58 AM CDT): - Pt doing well overall - See Medicare Health Risk Assessment either scanned in or in flowsheet in My [employer] - All healthcare maintenance reviewed and ordered as below - Info regarding POA and Living Will discussed Assessment & Plan (05/11/2020 11:00 AM GLASS CLEANER): -Pt feeling well without complaints -Preventative screening up to date or ordered as below Plan: 1) No labs today 2) RTC in 1 year for next annual exam or sooner if needed Assessment & Plan (04/22/2019 1:25 PM GLASS CLEANER): -Pt feeling well without complaints -Preventative screening [...] 03/24/2019 Assessment & Plan (03/01/2024 8:41 PM GLASS CLEANER): - Chronic - Follows with Ortho - [...] ortho Assessment & Plan (05/03/2021 10:36 AM GLASS CLEANER): - Chronic - Follows with Ortho - Q 3 month steroid injections Assessment & Plan (03/25/2019 12:39 PM GLASS CLEANER): Patient has a history of rheumatoid arthritis. [...] detail. Assessment & Plan (04/08/2019 11:40 AM GLASS CLEANER): .-ongoing for last 5-10 years. -status post [...] diarrhea. Assessment & Plan (03/21/2019 10:24 AM GLASS CLEANER): - Chronic - Diary shows approx 3 episodes/day - No change in the frequency of diarrhea even with treatment of H. Pylori - Other causes of diarrhea work-up from previous visit negative (celiac, crypto, ova/parasite) - Next colonoscopy due 2021 Plan: - Lomotil - GI referral Assessment & Plan (02/06/2019 11:08 AM GLASS CLEANER): - Chronic, Stable - Previous GI work-up [...] 12/10/2018 Assessment & Plan (03/01/2024 8:53 PM GLASS CLEANER): - Chronic, Stable - Pt w/o CP, [...] mg/day Assessment & Plan (05/03/2021 10:23 AM GLASS CLEANER): - Chronic, Stable - Pt w/o CP, palpitations - Pt taking aspirin 81 mg/day and atorvastatin 40 mg/day Assessment & Plan (09/04/2020 10:18 AM CDT): - Chronic, Stable - Pt w/o CP, palpitations - Pt taking aspirin 81 mg/day and atorvastatin 40 mg/day History of breast cancer 12/26/2017 Assessment & Plan (03/01/2024 8:44 PM GLASS CLEANER): - Chronic, Stable - Pt completed Anastrazole [...] team Assessment & Plan (05/09/2022 10:43 AM GLASS CLEANER): - Chronic, Stable - Pt on Anastrazole [...] 01/25/2017:Stage IA(pT2, pN1a(sn), cM0, G1, ER: Positive, VA: Positive, HER2: Negative) - Signed by Nolvia Regan MD on 08/21/2017 Rheumatoid arthritis involving multiple joints 0 10/12/2016 Assessment & Plan (11/21/2024 10:30 AM CDT): - Chronic, stable - Following with Dr. Overton (Rheum) - On Plaquenil 200 mg with no adverse effects Plan: - Management as per rheum Assessment & Plan (03/01/2024 8:40 PM GLASS CLEANER): - Chronic, stable - Following with Dr. Overton (Rheum) - Looking for a Food Service Coordinator closer to home - On Plaquenil 200 mg with no adverse effects Plan: - Management as per rheum Assessment & Plan (07/16/2023 9:52 PM CDT): - Chronic, stable - Following with Dr. Overton (Rheum) - Looking for a Food Service Coordinator closer to home - On Plaquenil 200 mg with no adverse effects - Denies current joint pain or stiffness Plan: - Management as per rheum Assessment & Plan (11/07/2022 11:06 AM CDT): - Chronic, stable - Following with Dr. Overton at [facility] - On Plaquenil 200 mg with no adverse effects - Denies current joint pain or stiffness Plan: - Management as per rheum Assessment & Plan (05/09/2022 10:40 AM GLASS CLEANER): - Chronic, stable - Following with Dr. Overton at [facility] - On Plaquenil 200 mg with no [...] stable - Following with Dr. Overton at [facility] - On Plaquenil 200 mg with no adverse effects - Denies current joint pain or stiffness Plan: - Management as per rheum Assessment & Plan (02/06/2019 11:15 AM GLASS CLEANER): - Chronic, stable - Following with Dr. Overton at [facility] - On Leflunomide 20 mg with no [...] (Leonard DIALLO Jr., et al., 2013) is: 30.7% Values used [...] daily. Assessment & Plan (03/01/2024 8:54 PM GLASS CLEANER): - Chronic - Continue Atorvastatin 80 mg/day [...] mg/day Assessment & Plan (05/03/2021 10:25 AM GLASS CLEANER): - Chronic, Improved - ASCVD 23->21 -The [...] (Leonard DIALLO Jr., et al., 2013) is: 23.7% Values used [...] daily Assessment & Plan (02/06/2019 11:11 AM GLASS CLEANER): -Based on 05/2018 - ascvd indicates moderate -> high intensity statin -Pt to continue Lipitor 10 mg daily -Will repeat May 2019 Hypertension 08/03/2013 Overview (02/01/2023): --- 05/14/21 Spironolactone 25->12.5 mg/day due to decrease GFR Patient to monitor BPs Assessment & Plan (03/01/2024 8:52 PM GLASS CLEANER): - BP is reasonably well controlled - [...] months. Assessment & Plan (05/09/2022 10:49 AM GLASS CLEANER): - BP is stable and reasonably well [...] months. Assessment & Plan (05/03/2021 10:25 AM GLASS CLEANER): - BP is stable and reasonably well [...] the follow up visit. Refills require a ryxa-bo-ceye visit before the medication runs out and will not be refilled over the phone. Assessment & Plan (03/21/2019 10:28 AM GLASS CLEANER): - BP is well controlled and stable [...] the follow up visit. Refills require a cloy-io-btxq visit before the medication runs out and will not be refilled over the phone. Assessment & Plan (01/14/2019 9:56 AM CDT): - BP is well controlled - HTN complicated by: Nothing - No Changes - Continue Spironolactone and [id number] - RBA of meds reviewed. - EKG:CHARLA [...] the follow up visit. Refills require a nfyd-bt-xtlu visit before the medication runs out and will not be refilled over the phone. Type 2 diabetes mellitus wit h hyperglycemia, without long-term current use of insulin 08/03/2013 Overview (07/14/2023): --- 07/14/23 Lab Results Component Value Date HGBA1C 7.6 (H) 07/05/2023 Continue Metformin and Pioglitazone Patient cannot afford JanConductort and does not qualify for assistance Recent [...] glycohemoglobin and other lab monitoring discussed and meterman diabetic complications discussed. Assessment & Plan (03/01/2024 8:49 PM GLASS CLEANER): -Diabetes is reasonably well controlled. -Disease course [...] glycohemoglobin and other lab monitoring discussed and group home diabetic complications discussed. Assessment & Plan (11/21/2023 [...] glycohemoglobin and other lab monitoring discussed and group home diabetic complications discussed. Assessment & Plan (11/07/2022 [...] glycohemoglobin and other lab monitoring discussed and group home diabetic complications discussed. - Bishop paperwork completed Assessment & Plan (05/09/2022 10:50 AM GLASS CLEANER): -Diabetes is reasonably well controlled. -Disease course [...] glycohemoglobin and other lab monitoring discussed and meterman diabetic complications discussed. Assessment & Plan (11/01/2021 [...] glycohemoglobin and other lab monitoring discussed and group home diabetic complications discussed. Assessment & Plan (06/30/2021 3:25 PM CDT): - Patient to raymond Del Real due to s/e of vaginitis - She will restart metformin and continue Pioglitazone - Rybelsus started 3 mg daily x 1 month Assessment & Plan (05/03/2021 10:24 AM GLASS CLEANER): -Diabetes is well controlled. -Disease course complicated [...] glycohemoglobin and other lab monitoring discussed and meterman diabetic complications discussed. -Follow up visit pending [...] glycohemoglobin and other lab monitoring discussed and meterman diabetic complications discussed. -Follow up visit pending [...] glycohemoglobin and other lab monitoring discussed and group home diabetic complications discussed. -Follow up visit pending A1C results Assessment & Plan (10/28/2019 11:14 AM CDT): - Chronic, Stable - [facility]ell [facility] with [facility] D and no longer able [...] glycohemoglobin and other lab monitoring discussed and meterman diabetic complications discussed. -Follow up visit pending [...] glycohemoglobin and other lab monitoring discussed and group home diabetic complications discussed. -Follow up visit needed in 6 months Vitamin D deficiency 11/06/2011 Assessment & Plan (02/07/2023 8:00 AM GLASS CLEANER): - Chronic, Stable - Pt had been [...] today Assessment & Plan (02/06/2019 11:28 AM GLASS CLEANER): - Chronic, Stable - Pt has been taking 1000 mg/day for the last few months - She wants to defer to Dr. Frances to check that lab Current Treatment and Therapy Plans No current plan information found. Past Treatment and Therapy Plans No past plan information found. Radiation Treatments * Course C1 R BREAST 2018 07/13/2017 - 08/16/2017 Treatment Period Energy Fraction Dose Fractions Total Dose Plans Planned RT BREAST 07/13/2017 - 08/16/2017 200 25 / 5,000 Reference Points Delivered DPV RT BREAST 07/13/2017 - 08/16/2017 5,000 Lifetime Dose Tracking * Chemical Lifetime Dose Automatic Entry Manual Entr y Fluoro Time 8.317 minutes 8.317 minutes 0 minutes Air kerma at the reference point (Ka,r) 261.919 mGy 2 61.919 mGy 0 mGy Resolved Problems Problem Noted Date Diagnosed Date Resolved Date Pain in toe 09/22/2021 11/01/2021 Vaginal feli 08/25/2021 11/01/2021 Cystitis with hematuria 07/03/2021 0807/2021 Vaginal itching 06/30/2021 11/21/2023 Assessment & Plan [...] 05/04/2021 Assessment & Plan (05/03/2021 10:36 AM GLASS CLEANER): - Repeat CBC today Constipation 11/17/2019 05/11/2020 [...] cranberry juice. She will talk to a purification operator helper. I did tell her that I can give her Levsin or dicyclomine which would also help with occasional abdominal pain secondary to kidney stone in case she does not get pain medication from her purification operator helper. She will let me know and we [...] mg a day dose. Elevated ferritin level 05/14/201908/18 Overview (05/16/2019): Recent diagnosis of Feli and Gastritis by GI - likely contributing Repeat Ferritin in 6 months Esophageal candidiasis (CMS/HCC) 05/07/2019 04/29/2021 Assessment & Plan (05/07/2019 1:01 PM GLASS CLEANER): -proven with cytology brushing. -will initiate therapy with fluconazole 20 mg loading dose followed by 100 mg for to complete a 14 day course. Acute superficial gastritis without hemorrhage 05/07/2019 05/06/2020 Assessment & Plan (05/07/2019 1:01 PM GLASS CLEANER): -on twice a day PPI therapy at this time. Will continue to complete 12 week course then will taper down the dose slowly. S/P cholecystectomy 04/08/2019 05/06/19 Assessment & Plan (04/08/2019 11:41 AM GLASS CLEANER): As noted under chronic diarrhea. History of Helicobacter pylori infection 04/08/2019 05/06/2020 Assessment & Plan (04/08/2019 11:41 AM GLASS CLEANER): Status post treatment. Will check for complete eradication in April during follow-up visit. Incontinence of feces 04/07/20192022 Assessment & Plan (04/08/2019 11:41 AM GLASS CLEANER): As noted under chronic diarrhea. Intertrigo 03/21/2019 01/04/2021 Assessment & Plan (03/21/2019 10:29 AM GLASS CLEANER): - Located under abdominal skin fold - Itchy, erythematous with satellite lesions - Will treat with Ketoconazole 2 % cream BID x 4 weeks H. pylori infection 02/11/2019 05/06/19 21 Microalbuminuria 02/06/2019 05/06/2020 Assessment & Plan (02/06/2019 11:34 AM GLASS CLEANER): - Uncertain etiology - Possibly 2/2 long [...] with pain management Dr. Arben De Dios (Thanh POOL -> Carli Giles and gary) - spinal cord stimulator Allergic rhinitis 06/05/2014 05/03/2021 Asthma 06/05/2014 05/11/2020 Glaucoma 06/05/2014 05/11/2020 Long-term insulin use 06/05/20142019
--- OUTSIDE RECORDS SUMMARY | 2024-11-27 11:30 | XMS_ITS | Encounter Summary ---
Author Organization [facility] Address [address] [place] [address] Care Team Providers Care Director Of Strategy & Mobile Name Role Phone Inessa Sapp MD Primary Care Provider Jessica Pagan DDS Unavailable [phone] Loreto Overton MD Unavailable Ava Pérez MD PhD Unavaila ble Jose Armando Genao DPM Unavailable [phone] Leighann Calix MD Unavailable [phone] Janeth Singh MD Unavailable [phone] Rony Sosa MD Unavailable Encounter Details Date Type Department Care Team (Latest Contact Info) Description 11/25/2024 Results Follow-Up Family Care at [facility] [address] [facility] [address] [place] [id number] Inessa Sapp MD [address] [place] [address] Thyroid Function [place], Hemoglobin A1c, Comprehensive metabolic panel, Additional followed-up results: 4 Social History Tobacco Use Types Packs/Day Years Used Date Smoking Tobacco: Never Smokeless Tobacco: Never Alcohol Use Standard Drinks/Week Comments Yes 1 [...] on file Legal Sex Female 12:21 AM ORTHOPEDIC TECHNICIAN Gender Identity Female 04/16/2019 1:38 PM ORTHOPEDIC TECHNICIAN Sexual Orientation Straight 03/18/2019 1: 47 PM ORTHOPEDIC TECHNICIAN documented as of this encounter Plan of Treatment Scheduled Orders Name Type Priority Associated Diagnoses Orde r Schedule Basic metabolic panel Lab Routine Hypercalcemia Stage 4 chronic kidney disease (HCC) Expected: 11/28/2024, Expires: 11/25/2025 Calcium, ionized Lab Routine Hypercalcemia Expected: 11/25/2024, Expires: 11/25/2025 documented as of this encounter Visit Diagnoses Diagnosis Hypercalcemia- Primary Stage 4 chronic kidney disease (HCC) documented in this encounter Care Teams Director Of Strategy & Mobile Relationship Specialty Start Date End Date Inessa Sapp MD PCP - General Family Medicine 01/14/19 Jessica Pagan, JERRY [address] [facility] [address] [place] [address] Dentist Dental Drywall Worker 04/22/19 Loreto Overton MD [address] [facility] [address] [place] [address] Consulting Physician Rheumatology 04/22/19 Ava Pérez MD PhD [address] [facility] [address] [place] [address] Surgeon Surgical Oncology 04/22/19 Jose Armando Genao, DPJuanita [address] [facility] [address] [place] [address] Referring Physician Podiatry 04/22/19 Leighann Calix MD [address] [facility] [address] [facility] [address] [place] [address] Consulting Physician Nephrology 04/22/19 [place] [address] [facility] [address] [place] [address] Consulting Physician Gastroenterology 04/22/19 [place] [address] [address] [facility] [address] [place] [address] Consulting Physician Medical Oncology 12/31/19 documented as of this encounter
--- OUTSIDE RECORDS SUMMARY | 2024-11-27 11:30 | XMS_ITS | Encounter Summary ---
Author Organization [facility] Address [address] [place] [address] Phone Care Team Providers Care Supervisor Shuttle Fitting Name Role Phone Wilfrid Blackwell MD Primary Care Provider [phone] Nolvia Regan MD Unavailable [phone] Amanda Mercer PT Unavailable Unavailable Karina Frances MD Unavailable Fide Carranza MD Unavailable [phone] Inessa Sapp MD Primary Care Provider Jessica Pagan DDS Unavailable [phone] Loreto Overton MD Unavailable Ava Pérez MD PhD Unavaila ble Jose Armando Genao DPM Unavailable [phone] Leighann Calix MD Unavailable [phone] Karina Frances MD Unavailable Janeth Singh MD Unavailable [phone] Asif Demarco MD Unavailable [phone] rAben De Dios MD Unavailable [phone] Rony Sosa MD Unavailable Aracelis Mart RPh Unavailable Kelly Vasquez OT Unavailable PuAracelis denney RPh Unavailable Aracelis Mart RPh Unavailable John Ashtyn Cifuentes [employer] Unavailable [phone] Kelly Vasquez OT Unavailable Aracelis Mart RPh Unavailable BetancourtPabloMaya DOLAN Unavailable [phone] FournierLesley MINO Unavailable [phone] Encounter Details Date Type Department Care Team (Late st Contact Info) Description 05/01/2017 Orders Only [facility] Provider, [place] [address] Social History Tobacco Use Types Packs/Day Years Used Date Smoking Tobacco: Never Smokeless Tobacco: Never Alcohol Use Standard Drinks/Week Comments Yes 0 (1 standard drink = 0.6 oz pur e alcohol) Comments No Sex and Gender Information Value Date Recorded Sex Assigned at Not on file Legal Sex Female 12:21 AM ORE MINER BLASTING Gender Identity Female 04/16/2019 1:38 PM ORE MINER BLASTING Sexual Orientation Straight 03/18/2019 1: 47 PM ORE MINER BLASTING documented as of this encounter Plan of Treatment Not on file documented as of this encounter Procedures Procedure Name Priority Date/Time Associated Diagnosis Comments DISCHARGE LABORATORY CUMULATIVE REPORT 05/01/2017 12:00 AM ORE MINER BLASTING documented in this encounter Results * DISCHARGE LABORATORY CUMULATIVE REPORT (05/01/2017 12:00 AM ORE MINER BLASTING) Narrative 05/01/2017 12:00 AM ORE MINER BLASTING Ordered by an unspecified provider. Historical Provider [...] documented as of this encounter Care Teams Supervisor Shuttle Fitting Relationship Specialty Start Date End Date Wilfrid Blackwell MD PCP - General 06/22/16 01/13/19 Inessa Sapp MD PCP - General Family Medicine 01/14/19 Nolvia Regan MD [address] [place] [address] Radiation Oncologist Radiation Oncology 08/04/17 04/04/20 Amanda Mercer, YOVANI Physical Therapist Physical Therapy 08/09/17 11/21/17 Karina Frances MD Medical Oncologist/Drive In Waiter/Waitress Medical Oncology 09/14/17 12/08/19 Fide Carranza MD Surgeon Surgical Oncology 09/14/17 12/14/23 Jessica Pagan, DDS [address] [address] Dentist Dental Comfort Station Attendant 04/22/19 Loreto Overton MD [address] [address] Consulting Physician Rheumatology 04/22/19 Ava Pérez MD PhD [address] [address] Surgeon Surgical Oncology 04/22/19 Jose Armando Genao DPM [address] [facility] [address] [place] [address] Referring Physician Podiatry 04/22/19 Leighann Calix MD [address] [place] [address] DR YOSEPH [facility], [facility] [address] [place] [address] Consulting Physician Nephrology 04/22/19 Karina Frances MD Medical Oncologist/Drive In Waiter/Waitress Medical Oncology 04/22/19 12/08/19 [place] [address] [address] [facility] [address] [address] Consulting Physician Gastroenterology 04/22/19 [place] [address] [address] [facility] [address] [address] Surgeon Orthopedic Surgery 04/22/19 12/14/23 [place] [address] [address] Anesthesiologist Pain Management 04/22/19 12/14/23 [place] [address] [address] [address] Consulting Physician Medical Oncology 12/31/19 Aracelis Mart, [address] [place] [address] Pharmacist Pharmacy 08/28/20 02/07/21 [place] [address] [place] [address] Occupational Therapist Occupational Therapy 02/08/2102/17 Aracelis Mart, [address] [place] [address] Pharmacist Pharmacy 04/29/21 04/29/21 [address] [place] [address] Pharmacist Pharmacy 05/20/21 05/15/22 Ashtyn Lopez LPN [address] [place] [address] [address] [place] [address] [employer] Teacher 07/20/21 07/21/21 [place] [address] [place] [address] Occupational Therapist Occupational Therapy 08/12/2102/[address] [place] [address] Pharmacist Pharmacy 10/10/22 07/30/23 Pablo Betancourt MA [address] [place] [address] [address] [place] [address] [employer] Teacher 02/02/23 02/02/23 Lesley Fournier CMA [address] [place] [address] [address] [place] [address] [employer] Teacher 04/03/23 04/04/23 documented as of this encounter
--- OUTSIDE RECORDS SUMMARY | 2024-11-27 11:30 | XMS_ITS | Encounter Summary ---
Author Organization [facility] Address [address] [place] [address] Phone Care Team Providers Care Red Hat Linux Administrator Name Role Phone Wilfrid Blackwell MD Primary Care Provider [phone] Nolvia Regan MD Unavailable [phone] Amanda Mercer PT Unavailable Unavailable Karina Frances MD Unavailable Fide Carranza MD Unavailable [phone] Inessa Sapp MD Primary Care Provider Jessica Pagan DDS Unavailable [phone] Loreto Overton MD Unavailable Ava Pérez MD PhD Unavaila ble Jose Armando Genao DPM Unavailable [phone] Leighann Calix MD Unavailable [phone] Karina Frances MD Unavailable Janeth Singh MD Unavailable [phone] Asif Demarco MD Unavailable [phone] Arben De Dios MD Unavailable + [phone] Rony Sosa MD Unavailable Aracelis Mart RPh Unavailable Kelly Vasquez OT Unavailable PuAracelis denney RPh Unavailable Aracelis Mart RPh Unavailable SouravjenvenessaAshtyn AMPOULE INSPECTOR Unavailable [phone] Kelly Vasquez OT Unavailable Aracelis Mart RPh Unavailable BetancourtPabloMaya DOLAN Unavailable [phone] Lesley Fournier MINO Unavailable [phone] Encounter Details Date Type Department Care Team (Late st Contact Info) Description 06/28/2017 Orders Only [facility] Provider, [place] [address] Social History Tobacco Use Types Packs/Day Years Used Date Smoking Tobacco: Never Smokeless Tobacco: Never Alcohol Use Standard Drinks/Week Comments Yes 0 (1 standard drink = 0.6 oz pur e alcohol) Comments No Sex and Gender Information Value Date Recorded Sex Assigned at Not on file Legal Sex Female 12:21 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 Historical Provider MD MOREJON XR PROCEDURES Final R esult documented in this encounter Visit Diagnoses Not on filedocumented in this encounter Additional Health Concerns Infection Onset Date Last Indicated Resolved Time COVID: Suspected 07/16/2019 07/16/2019 07/18/2019 12:25 PM CDT Respiratory Infection (MARCELA), contact + droplet Comment:Automatically added due to negative COVID-19 result. 07/18/2019 07/18/2019 08/01/2019 3:0 5 AM CDT documented as of this encounter Care Teams Red Hat Linux Administrator Relationship Specialty Start Date End Date Wilfrid Blackwell MD PCP - General 06/22/16 01/13/19 Inessa Sapp MD PCP - General Family Medicine 01/14/19 Nolvia Regan MD [address] [place] [address] Radiation Oncologist Radiation Oncology 08/04/17 04/04/20 Amanda Mercer, YOVANI Physical Therapist Physical Therapy 08/09/17 11/21/17 Karina Frances MD Medical Oncologist/Culinary Internship Medical Oncology 09/14/17 12/08/19 Fide Carranza MD Surgeon Surgical Oncology 09/14/17 12/14/23 Jessica Pagan, DDS [address] [facility] [address] [place] [address] Dentist Dental Chemistry Technical Officer 04/22/19 Loreto Overton MD [address] [facility] [address] [place] [address] Consulting Physician Rheumatology 04/22/19 Ava Pérez MD PhD [address] [facility] [address] [place] [address] Surgeon Surgical Oncology 04/22/19 Jose Armando Genao DPM [address] [facility] [address] [place] [address] Referring Physician Podiatry 04/22/19 Leighann Calix MD [address] [place] [address] DR YOSEPH GUAMAN NEPHROLOGY, [facility] [address] [place] [address] Consulting Physician Nephrology 04/22/19 Karina Frances MD Medical Oncologist/Culinary Internship Medical Oncology 04/22/19 12/08/19 [place] [address] [address] [facility] [address] [place] [address] Consulting Physician Gastroenterology 04/22/19 [place] [address] [address] [address] [place] [address] Surgeon Orthopedic Surgery 04/22/19 12/14/23 [place] [address] [address] [facility] [address] [place] [address] Anesthesiologist Pain Management 04/22/19 12/14/23 [place] [address] [address] [address] [place] [address] Consulting Physician Medical Oncology 12/31/19 Aracelis Mart, [address] [place] [address] Pharmacist Pharmacy 08/28/20 02/07/21 [place] [address] [place] [address] Occupational Therapist Occupational Therapy 02/08/2102/[address] [place] [address] Pharmacist Pharmacy 04/29/21 04/29/[address] [place] [address] Pharmacist Pharmacy 05/20/21 05/15/22 Ashtyn Lopez LPN [address] [place] [address] [address] [place] [address] ACO Care Plumbing Inspector 07/20/21 07/21/21 [place] [address] [place] [address] Occupational Therapist Occupational Therapy 08/12/2102/[address] [place] [address] Pharmacist Pharmacy 10/10/22 07/30/23 Pablo Betancourt MA [address] [place] [address] [address] [place] [address] ACO Care Plumbing Inspector 02/02/23 02/02/23 Lesley Fournier CMA [address] [place] [address] [address] [place] [address] ACO Care Plumbing Inspector 04/03/23 04/04/23 documented as of this encounter
--- OUTSIDE RECORDS SUMMARY | 2024-11-27 11:30 | XMS_ITS | Encounter Summary ---
Author Organization [facility] Address [address] [place] [address] Phone Care Team Providers Care Leaf Blender Name Role Phone Wilfrid Blackwell MD Primary Care Provider [phone] Nolvia Regan MD Unavailable [phone] Amanda Mercer PT Unavailable Unavailable Karina Frances MD Unavailable Fide Carranza MD Unavailable [phone] Inessa Sapp MD Primary Care Provider Jessica Pagan DDS Unavailable [phone] Loreto Overton MD Unavailable Ava Pérez MD PhD Unavaila ble Jose Armando Genao DPM Unavailable [phone] Leighann Calix MD Unavailable [phone] Karina Frances MD Unavailable Janeth Singh MD Unavailable [phone] Asif Demarco MD Unavailable [phone] Arben De Dios MD Unavailable + [phone] Rony Sosa MD Unavailable Aracelis Mart RPh Unavailable Kelly Vasquez OT Unavailable PuAracelis denney RPh Unavailable Aracelis Mart RPh Unavailable SouravjenvenessaAshtyn COMB FIXER Unavailable [phone] Kelly Vasquez OT Unavailable Aracelis Mart RPh Unavailable BetancourtPabloMaya DOLAN Unavailable [phone] Lesley Fournier MINO Unavailable [phone] Encounter Details Date Type Department Care Team (Late st Contact Info) Description 06/05/2017 Orders Only [facility] Provider, MD [address] [facility] [place] [address] Social History Tobacco Use Types Packs/Day Years Used Date Smoking Tobacco: Never Smokeless Tobacco: Never Alcohol Use Standard Drinks/Week Comments Yes 0 (1 standard drink = 0.6 oz pur e alcohol) Comments No Sex and Gender Information Value Date Recorded Sex Assigned at Not on file 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 Historical Provider [...] documented as of this encounter Care Teams Leaf Blender Relationship Specialty Start Date End Date Wilfrid Blackwell MD PCP - General 06/22/16 01/13/19 Inessa Sapp MD PCP - General Family Medicine 01/14/19 Nolvia Regan MD [address] [place] [address] Radiation Oncologist Radiation Oncology 08/04/17 04/04/20 Amanda Mercer, YOVANI Physical Therapist Physical Therapy 08/09/17 11/21/17 Karina Frances MD Medical Oncologist/Viscera Washer Medical Oncology 09/14/17 12/08/19 Fide Carranza MD Surgeon Surgical Oncology 09/14/17 12/14/23 Jessica Pagan, DDS [address] [facility] [address] [place] [address] Dentist Dental Vamp Stitcher 04/22/19 Loreto Overton MD [address] [facility] [address] [place] [address] Consulting Physician Rheumatology 04/22/19 Ava Pérez MD PhD [address] [facility] [address] [place] [address] Surgeon Surgical Oncology 04/22/19 Jose Armando Genao DPM [address] [facility] [address] [place] [address] Referring Physician Podiatry 04/22/19 Leighann Calix MD [address] [place] [address] DR YOSEPH GUAMAN NEPHROLOGY, [facility] [address] [place] [address] Consulting Physician Nephrology 04/22/19 Karina Frances MD Medical Oncologist/Viscera Washer Medical Oncology 04/22/19 12/08/19 [place] [address] [address] [facility] [address] [place] [address] Consulting Physician Gastroenterology 04/22/19 [place] [address] [address] [facility] [address] [place] [address] Surgeon Orthopedic Surgery 04/22/19 12/14/23 [place] [address] [address] [facility] [address] [place] [address] Anesthesiologist Pain Management 04/22/19 12/14/23 [place] [address] [address] [facility] [address] [place] [address] Consulting Physician Medical Oncology 12/31/19 Aracelis Mart, [address] [place] [address] Pharmacist Pharmacy 08/28/20 02/07/21 [place] [address] [place] [address] Occupational Therapist Occupational Therapy 02/08/2102/[address] [place] [address] Pharmacist Pharmacy 04/29/21 04/29/[address] [place] [address] Pharmacist Pharmacy 05/20/21 05/15/22 Ashtyn Lopez LPN [address] [place] [address] [address] [place] [address] ACO Care Store Protection Specialist 07/20/21 07/21/21 [place] [address] [place] [address] Occupational Therapist Occupational Therapy 08/12/2102/[address] [place] [address] Pharmacist Pharmacy 10/10/22 07/30/23 Pablo Betancourt MA [address] [place] [address] [address] [place] [address] ACO Care Store Protection Specialist 02/02/23 02/02/23 Lesley Fournier CMA [address] [place] [address] [address] [place] [address] ACO Care Store Protection Specialist 04/03/23 04/04/23 documented as of this encounter
--- OUTSIDE RECORDS SUMMARY | 2024-11-27 11:30 | XMS_ITS | Patient Health Record ---
Author Organization [facility] Address [address] [place] [address] Patricia WALT Carmen [phone] Care Team Providers Care Supervisor Reclamation Name Role Phone STEVE CARCAMO, LUIS Primary Care Provider U Arben Khan Unavailable [phone] MD THOMAS, RUFINO Unavailable Unavailable ALLERGIES Allergen [...] Sulfacetamide angioedema Drug Allergy Active REASON FOR REFERRAL No Information MEDICATIONS Medication SIG (Take, Route, Frequency, Duration) Notes Start Date End Date Status Pioglitazone HCl 30 MG 1 tablet Oral Onc e a day Active Spironolactone 25 MG 1 tablet Oral Once a day Active Vitamin D-[address] 25 MCG (1000 UT) 1 tablet Orally Once a day for 30 day(s) 01/30/2020 Active Anastrozole 1 MG 1 tablet Oral Once a day Active traMADol HCl 50 MG Oral for 7 Active Atorvastatin Calcium 10 MG 1 tablet Oral ly Once a day Active Cyclobenzaprine HCl 10 MG 1 tablet at be dtime as needed Oral Once a day Active Cetirizine HCl 10 MG TAKE 0.5 TABLETS (5 MG TOTAL) BY MOUTH DAILY NEEDED FOR ALLERGIES Oral for 90 Active Hydroxychloroquine Sulfate 2 00 MG as directed Oral Active Xanax 0.25 MG 1-2 tablets Orally 3 0 minutes prior to injection Active Vitamin E 400 UNIT 1 capsule Orally Onc e a day for 30 day(s) 01/30/2020 Active Tylenol Extra Strength 500 MG 1 tablet a s needed Orally every 6 hrs Active Furosemide 40 MG TAKE 1 TABLET (40 MG TOTAL) BY MOUTH 3 (THREE) TIMES A WEEK Oral for 70 Active Aspirin 81 MG 1 tablet Orally Once a day for 30 day(s) Active Chlorthalidone 25 MG TAKE 1 TABLET (25 M G TOTAL) BY MOUTH DAILY. 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 She denies tobacco, alcohol and drug use. 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 She denies tobacco, alcohol and drug use. 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 She denies tobacco, alcohol and drug use. 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 She denies tobacco, alcohol and drug use. 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 She denies tobacco, alcohol and drug use. 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 She denies tobacco, alcohol and drug use. 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 She is single with two children. She denies tobacco, alcohol and drug use. 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 She is single with two children. She denies tobacco, alcohol and drug use. 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 She is single with two children. She denies tobacco, alcohol and drug use. 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 She is single with two children. She denies tobacco, alcohol and drug use. 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 She is single with two children. She denies tobacco, alcohol and drug use. 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 She is single with two children. She denies tobacco, alcohol and drug use. 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 She is single with two children. She denies tobacco, alcohol and drug use. 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 She is single with two children. She denies tobacco, alcohol and drug use. 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 She is single with two children. She denies tobacco, alcohol and drug use. 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 She is single with two children. She denies tobacco, alcohol and drug use. 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 She is single with two children. She denies tobacco, alcohol and drug use. PROBLEMS Problem Type ICD Code Onset Dates Problem Status W/U Status Risk SNOMED Code Notes Problem Fear of injections and transfusions (F40.231) Active confirmed Fear of medical treatment (710383298) Problem Anxiety disorder, unspecified (F41.9) Active confirmed Anxiety disorde r (334178009) Problem Sacroiliitis, not elsewhere classified (M46.1) Active confirmed Solitary sacroiliitis (383953015) Problem Spondylosis without myelopathy or radiculopathy, lumbar region (M47.816) Active confirmed Lumbosacral spondylosis without myelopathy (47865790) Problem Spondylosis without myelopathy or radiculopathy, lumbosacral region (M47.817) Active confirmed Lumbosacral spondylosis without myelopathy (disorder) (69028661) Problem Intervertebral disc disorders with radiculopathy, lumbar region (M51.16) Active confirmed Radiculopathy d ue to lumbar intervertebral disc disorder (748078589338936) Problem Radiculopathy, lumbar region (M54.16) Active confirmed Lumbar radiculopathy (979763735) Problem Postlaminectomy syndrome, not elsewhere classified (M96.1) Active confirmed Post-lami nectomy syndrome (18135218) Problem 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 Discharged home with family, ambulatory, and in no acute distress. 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.82 [facility] [address] [place] [phone] 05/10/2024 Arben Montalvoick Sacroiliitis, not elsewhere classified M46.1 ; Radiculopathy, lumbar region M54.16 ; Postlaminectomy syndrome, not elsewhere classified M96.1 ; 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 and skilled nursing (current) use of aspirin Z79.82 [facility] [address] [place] [phone] 05/13[facility]20[facility] [address] [place] [phone] 05/17/2024 Arben De Dios Sacroiliitis, not elsewhere classified M46.1 [facility] [address] [place] [phone] 05/31/2024 Arben Styndarellick Radiculopathy, lumba r region M54.16 ; Sacroiliitis, not elsewhere classified M46.1 ; Postlaminectomy syndrome, not elsewhere classified M96.1 ; 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 ; skilled nursing (current) use of aspirin Z79.82 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 Z79.01 [facility] [address] [place] [address] 06/07/2024 Arben Stynowick Radiculopathy, lumba r region M54.16 ; Intervertebral disc disorders with radiculopathy, lumbar region M51.16 and Intervertebral disc stenosis of neural canal of lumbar region M99.53 [facility] [address] [place] [phone] 06/18/2024 Arben Stynowick Radiculopathy, lumba r region M54.16 ; Sacroiliitis, not elsewhere classified M46.1 ; Postlaminectomy syndrome, not elsewhere classified M96.1 ; 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 ; 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.82 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 Z79.01 [facility] [address] [place] [phone] 08/05/2024 Arben Stynowick Radiculopathy, lumba r region M54.16 ; Spondylosis without myelopathy or radiculopathy, lumbar region M47.816 ; Sacroiliitis, not elsewhere classified M46.1 ; Postlaminectomy syndrome, not elsewhere classified M96.1 ; 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 ; 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.82 and skilled nursing (current) use of anticoagulants Z79.01 [facility] [address] [place] [phone] 08/16/2024 Arben Stynowick Spondylosis without myelopathy or radiculopathy, lumbar region M47.816 and Spondylosis without myelopathy or radiculopathy, lumbosacral region M47.817 [facility] [address] [place] [phone] 08/26/2024 Arben Stynowick Spondylosis without myelopathy or radiculopathy, lumbar region M47.816 ; Spondylosis without myelopathy or radiculopathy, lumbosacral region M47.817 ; Postlaminectomy syndrome, not elsewhere classified M96.1 ; Radiculopathy, lumbar region M54.16 and 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 [facility] [address] [facility] [place] [address] 09/02/2024 Arben Stportiaowick Spondylosis without myelopathy or radiculopathy, lumbar region M47.816 and Spondylosis without myelopathy or radiculopathy, lumbosacral region M47.817 [facility] [address] [facility] [place] [address] 09/10/2024 Arben Stynowick Spondylosis without myelopathy or radiculopathy, lumbar region M47.816 ; Spondylosis without myelopathy or radiculopathy, lumbosacral region M47.817 ; Postlaminectomy syndrome, not elsewhere classified M96.1 and Radiculopathy, lumbar region M54.16 ASSESSMENTS Encounter Date Diagnosis Assessment Notes Treatment Notes Treatment Clinical Notes Section Notes 03/07/2024 Sacroiliitis, not elsewhere classified (ICD-10 - M46.1) Schedule a left sacroiliac joint injection. The risks of this procedure including pain, bleeding, infection, insomnia, hyperglycemia, hair loss, muscle atrophy, skin depigmentation, weight gain, fluid retention, adrenal suppression, immunosuppression, osteoporosis resulting in fractures, avascular necrosis of the hip, cataracts, bleeding gastric ulcer, worsening pain and failure to relieve pain were discussed and the patient is agreeable to proceeding at this time. 03/07/2024 Radiculopathy, lumbar region (ICD-10 - M54.16) Schedule a left L3-4 + L4-5 + L5-S1 (L3 + L4 + L5 SNRB) transforaminal epidural steroid injection. The risks of this procedure including pain, bleeding, infection, spinal headache, persistent spinal fluid leak, epidural hematoma, nerve damage, spinal cord injury, paralysis, total spinal anesthesia resulting in cardiopulmonary arrest/, respiratory distress requiring intubation, insomnia, hyperglycemia, hair loss, muscle atrophy, skin depigmentation, weight gain, fluid retention, adrenal suppression, immunosuppression, osteoporosis resulting in fractures, avascular necrosis of the hip, cataracts, bleeding gastric ulcer, worsening pain and failure to relieve pain were discussed and the patient is agreeable to proceeding at this time. 05/10/2024 Sacroiliitis, not elsewhere classified (ICD-10 - M46.1) Schedule a left sacroiliac joint injection. The risks of this procedure including pain, bleeding, infection, insomnia, hyperglycemia, hair loss, muscle atrophy, skin depigmentation, weight gain, fluid retention, adrenal suppression, immunosuppression, osteoporosis resulting in fractures, avascular necrosis of the hip, cataracts, bleeding gastric ulcer, worsening pain and failure to relieve pain were discussed and the patient is agreeable to proceeding at this time. 05/10/2024 Radiculopathy, lumbar region (ICD-10 - M54.16) 05/17/2024 Sacroiliitis, not elsewhere classified (ICD-10 - M46.1) 05/31/2024 Sacroiliitis, not elsewhere classified (ICD-10 - M46.1) 05/31/2024 Radiculopathy, lumbar region (ICD-10 - M54.16) Schedule a left L3-4 and L4-5 transforaminal epidural steroid injection. The risks of this procedure including pain, bleeding, infection, spinal headache, persistent spinal fluid leak, epidural hematoma, nerve damage, spinal cord injury, paralysis, total spinal anesthesia resulting in cardiopulmonary arrest/, respiratory distress requiring intubation, insomnia, hyperglycemia, hair loss, muscle atrophy, skin depigmentation, weight gain, fluid retention, adrenal suppression, immunosuppression, osteoporosis resulting in fractures, avascular necrosis of the hip, cataracts, bleeding gastric ulcer, worsening pain and failure to relieve pain were discussed and the patient is agreeable to proceeding at this time. 06/07/2024 Intervertebral disc disorders with radiculopathy, lumbar region (ICD-10 - M51.16) 06/07/2024 Radiculopathy, lumbar region (ICD-10 - M54.16) 06/18/2024 Sacroiliitis, not elsewhere classified (ICD-10 - M46.1) 06/18/2024 Radiculopathy, lumbar region (ICD-10 - M54.16) The patient recently underwent left L3-4 & L4-5 TFE done on 06/07/24 and reports minimal reduction of her low back and lower extremity pain since this procedure. At this time, I will refer her back to her neurosurgeon, Dr. Parker to discuss treatment plan, and possible surgical options moving forward. 08/05/2024 Spondylosis without myelopathy or radiculopathy, lumbar [...] agreeable to proceeding at this time. 08/05/2024 Radiculopathy, lumbar region (ICD-10 - M54.16) 08/16/2024 Spondylosis without myelopathy or radiculopathy, lumbar region (ICD-10 - M47.816) 08/16/2024 Spondylosis without myelopathy or radiculopathy, lumbosacral region (ICD-10 - M47.817) 09/10/2024 Spondylosis without myelopathy or radiculopathy, lumbar [...] or radiculopathy, lumbosacral region (ICD-10 - M47.817) 09/02/2024 Spondylosis without myelopathy or radiculopathy, lumbar region (ICD-10 - M47.816) 09/02/2024 Spondylosis without myelopathy or radiculopathy, lumbosacral region (ICD-10 - M47.817) 08/26/2024 Spondylosis without myelopathy or radiculopathy, lumbar [...] not elsewhere classified (ICD-10 - M96.1) 09/10/2024 Postlaminectomy syndrome, not elsewhere classified (ICD-10 - M96.1) 06/18/2024 Postlaminectomy syndrome, not elsewhere classified (ICD-10 - M96.1) 08/05/2024 Sacroiliitis, not elsewhere classified (ICD-10 - M46.1) 06/07/2024 Intervertebral disc stenosis of neural canal of lumbar region (ICD-10 - M99.53) 05/31/2024 Postlaminectomy syndrome, not elsewhere classified (ICD-10 - M96.1) 05/10/2024 Postlaminectomy syndrome, not elsewhere classified (ICD-10 - M96.1) 03/07/2024 Postlaminectomy syndrome, not elsewhere classified (ICD-10 - M96.1) 05/31/2024 Fear of injections and transfusions (ICD-10 - F40.231) The patient was given written instructions explaining the above and was informed that they would need to 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 03/07/2024 Fear of injections and transfusions (ICD-10 - F40.231) Due to a severe fear of needles and injections, the patient is insisting on IV Sedation with this procedure. The patient was instructed not to eat for 8 hours prior to the procedure. The inherent risks of anesthesia up to and including airway obstruction potentially resulting in cardiac arrest and were also discussed and the patient is agreeable to proceeding at this time. 05/10/2024 Fear of injections and transfusions (ICD-10 - F40.231) Due to a severe fear of needles and injections, the patient is insisting on IV Sedation with this procedure. The patient was instructed not to eat for 8 hours prior to the procedure. The inherent risks of anesthesia up to and including airway obstruction potentially resulting in cardiac arrest and were also discussed and the patient is agreeable to proceeding at this time. 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 05/10/2024 skilled nursing (current) use of aspirin (ICD-10 - Z79.82) The patient was instructed to discontinue aspirin for 6 days prior to any future epidural injections. 03/07/2024 skilled nursing (current) use of aspirin (ICD-10 - Z79.82) The patient was instructed to discontinue aspirin for 6 days prior to any future epidural injections. 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 I made the patient aware that they will be at an increased risk for a thromboembolic event during this time and they are willing to accept this risk. 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 06/18/2024 skilled nursing (current) use of anticoagulants (ICD-10 - Z79.01) 08/05/2024 skilled nursing (current) use of aspirin (ICD-10 - Z79.82) 08/05/2024 skilled nursing (current) use of anticoagulants (ICD-10 - Z79.01) 03/07/[address] Orin bruno for your kind referral and for involving me in the care of this patient. 05/17/2024 Other The patient voiced understanding of the treatment plan and all questions were addressed. Obtain informed consent: Left Diagnostic Sacroiliac Joint Injection under fluoroscopy. Monitor pulse, blood pressure and SaO2 before, after and as needed during procedure. Verify if the patient is currently taking blood thinner. Verify patients is not currently on antibiotics for infection The patient may not drive home CARE PLAN: Knowledge deficit: Will verbalize understanding of the proposed procedure, including risk of electrical burn, complications and benefits of the procedure? Will the patient exhibit understanding of the discharge instructions? Safety: The potential for injury related to surgery was assessed; Fire risk score determined, test completed if applicable. Risk for injury related to wrong patient, site, procedure. TIME OUT for safety of patient and includes patient name, , procedure site, side, level, allergies, blood thinners, antibiotics, surgical counts, consents correct and signed etc. Risk for infection: Implements aseptic technique, protects from cross-contaminatio n, performs skin preparations. Pain/Discomfort: Patient verbalizes acceptable level of pain relief prior to discharge and the ability to engage in desired activity. I HAVE REVIEWED THE PATIENT'S MEDICATION LIST AND HAVE RECONCILED THE ABOVE MEDICATIONS. PATIENT GOALS AND SAFETY CONCERNS HAVE BEEN ADDRESSED. MARKUS initials __JW. 05/31/2024 Other The above-named patient was evaluated in [...] with Patient and Medical Decision Makin minutes 06/18/2024 Other The above-named patient was evaluated in [...] with Patient and Medical Decision Makin minutes 08/05/2024 Other The above-named patient was evaluated [...] with Patient and Medical Decision Makin minutes 08/26/2024 Other The above-named patient was evaluated [...] with Patient and Medical Decision Makin minutes 09/10/2024 Other The above-named patient was evaluated [...] Medical Decision Makin minutes PLAN OF TREATMENT Pending Test Test Name Order Date CT Scan : Lumbar Spine 11/20/2020 Insurance Providers Payer Name Payer Address Payer Phone Subscriber Number Group Number Insured Name Patient Relationship to Insured Coverage Start Date Coverage End Date z[employer] Medicare Complete [address] [address] [place] [address] [id number] [address] Self - patient is the insured MEDICAL (GENERAL) HISTORY Medical History History ICD Code Hypertension Diabetes type 2 Breast Cancer Osteoporosis Rhematoid Arthritis IBS Sleep apnea Chronic kidney disease stage 3 Non alcoholic fatty liver disease Surgical History Surgery Date(Month/Year) Hysterectomy [address] Dr[address] DiezOysuvja-E1-5 Laminectomy and Disceto my 1991 Gallbladder Removed 2014 Lumpectomy 2017 Right Hand Carpal Tunnel Repair, Trigger Finger 05/2018 Right L3-4 Microdecompression--Dr. Parker 03/31/2023 SCS Removal-Dr. Parker 2021 SCS Implant-Dr. De Dios 2007
--- OUTSIDE RECORDS SUMMARY | 2024-11-27 11:30 | XMS_ITS | Patient Health Record ---
Author Organization [facility] gardenia Address [address] [place] [address] Care Team Providers Care Nail Kegger Name Role Phone Maureen CARCAMO, Inessa Primary Care Provider U elodiaedie TianJenniferg Unavailable [phone] Allergies Allergen (clinical drug ingredient) Drug/Non Drug Allergy documented on EMR Reaction Allergy Type Onset Date Status diltiazem dilTIAZem HCl Unknown Drug Allergy 09/09/2017 Ac tive angiotensin-converting enzyme inhibitor (FN) KAVON Inhibitors Unknown Drug Allergy 09/09/2017 Acti ve Substance with sulfonamide structure and antibacterial mechanism of action (substance) Sulfa Antibiotics Unknown Drug Allergy 09/09/2017 Active Results Component Value Reference Range Notes eGFR Reviewed date:06/05/2024 02:22:43 PM Interpretation: Performing Lab:[facility] , [address] [facility] [address] Notes/Report: eGFR 41 >=60 mL/min/1.73 m2 Interpretive Data Reference Interval Normal >/= 90 [...] Current interpretive data was last reviewed 2021. Differential Automated Reviewed date:06/05/2024 01:06:34 PM Interpretation: Performing Lab:[facility] , [address] [place] [address]. [facility] [address] Notes/Report: Neut Abs 2.2 1.5-6.5 K/cumm ImmGran Abs 0.0 0.0-0.1 K/cumm Lymphocyte Abs 0.9 0.8-3.3 K/cumm Culebra Abs 0.7 0.2-0.8 K/cumm Eos Abs 0.0 0.0-0.5 K/cumm Baso Abs 0.0 0.0-0.1 K/cumm Neut Pct 56.6 Interpretive Data Percent cell count reference ranges are not reported, since discordance with absolute values may lead to misinterpretation of CBC data. Current Interpretive Data was last revised on 2017. ImmGran Pct 0.5 Interpretive Data Percent cell count reference ranges are not reported, since discordance with absolute values may lead to misinterpretation of CBC data. Current Interpretive Data was last revised on 2017. Lymph Pct 24.2 Interpretive Data Percent cell count reference ranges are not reported, since discordance with absolute values may lead to misinterpretation of CBC data. Current Interpretive Data was last revised on 2017. Culebra Pct 18.7 Interpretive Data Percent cell count reference ranges are not reported, since discordance with absolute values may lead to misinterpretation of CBC data. Current Interpretive Data was last revised on 2017. Eos Pct 0.0 Interpretive Data Percent cell count reference ranges are not reported, since discordance with absolute values may lead to misinterpretation of CBC data. Current Interpretive Data was last revised on 2017. Baso Pct 0.0 Interpretive Data Percent cell count reference ranges are not reported, since discordance with absolute values may lead to misinterpretation of CBC data. Current Interpretive Data was last revised on 2017. X ray : Hands, bilateral Reviewed date:06/17/2024 11:50:36 AM Interpretation: Performing Lab: Notes/Report: Sed Rate Reviewed date:06/05/2024 02:22:43 PM Interpretation: Performing Lab:[facility] , [address] [facility] [address] [facility] [facility] [address] Notes/Report: ESR 23 1-30 mm/hr Rheumatoid Factor Reviewed date:06/05/2024 02:22:43 PM Interpretation: Performing Lab:[facility] , [address] [place] [address]. [facility] [address] Notes/Report: RF, Adam 217 <=15 IUnits/mL Creatine Kinase Reviewed date:06/05/2024 02:22:43 PM Interpretation: Performing Lab:[facility] , [address] [place] [address]. [facility] [address] Notes/Report: Total CK 84 30-200 Units/L Comprehensive metabolic pane l (CMP) Reviewed date:06/05/2024 02:22:43 PM Interpretation: Performing Lab:[facility] , [address] [place] [address]. [facility] [address] Notes/Report: Sodium 139 135-145 mmol/L Plasma Potassium 4.4 3.3-4.9 mmol/L Chloride 100 97-110 mmol/L Total CO2 22 22-32 mmol/L Anion Gap 17 2-15 mmol/L BUN 18 6-25 mg/dL Creatinine 1.35 0.60-1.10 mg/dL Glucose 147 70-199 mg/dL Interpretive Data Fasting glucose >/= 126 mg/dl [...] classification and Diagnosis of Diabetes Diabetes Care 202; 46: S19-S40. Current interpretive data was last revised 2022. Total Calcium 9.9 8.5-10.3 mg/dL Total Bilirubin 0.7 0.1-1.2 mg/dL Plasma Total Protein 8.4 6.5-8.5 g/dL Albumin 4.6 3.5-5.0 g/dL Alkaline Phosphatase 85 40-130 Units/L ALT 19 7-45 Units/L AST 27 10-45 Units/L CBC w auto diff Reviewed date:06/05/2024 01:06:34 PM Interpretation: Performing Lab:[facility] , [address] [place] [address] Notes/Report: WBC 3.9 3.8-9.9 K/cumm Hgb 13.2 11.9-15.5 g/dL Hct 42.1 35.6-45.5 % Platelet Ct 198 150-400 K/cumm MPV 10.6 9.1-12.3 fL RBC 4.55 3.90-5.20 M/cumm MCV 92.5 81.3-96.4 fL MCH 29.0 27.1-33.3 pg MCHC 31.4 32.3-35.7 g/dL RDW CV 15.4 11.1-14.9 % RDW SD 52.7 35.7-48.1 fL NRBC Abs Auto 0.00 0.00-0.01 K/cumm C Reactive Protein Reviewed date:06/05/2024 02:22:43 PM Interpretation: Performing Lab:[facility] , [address] [place] [address]. [facility] [address] Notes/Report: C-Reactive Protein <3.0 <=10.0 mg/L Anti-CCP (Cyclic Citrullinat ed Peptide Ab) Reviewed date:06/06/2024 10:50:11 AM Interpretation: Performing Lab:[facility] , [address] [place] [address]. [facility] [address] Notes/Report: CCP Ab <0.5 <=2.9 units/mL Interpretive data Negative: <3 units/mL Positive: > or equal to 3 units/mL Current interpretive data was last revised on 2016. LOLITA reflex titer pattern CARLOS + dsDNA Reviewed date:06/06/2024 10:54:37 AM Interpretation: Performing Lab:[facility] , [address] [place] [address] Notes/Report: LOLITA, Qual Negative Interpretive Data Normal range for LOLITA Qualitative Antibody = Negative. 1. LOLITA is performed using indirect immunofluorescence against HEp-2 cells 2. LOLITA titers are performed on all positive qualitative results. 3. A significantly positive LOLITA result is defined as a positive nuclear fluorescence at a titer of 1:80 or greater. 4. 15% of normal people above age 65 have significantly positive LOLITA results. 5% or less of normal people age 65 or under have significantly positive LOLITA results. Current interpretive data was last revised on 2019. Testing performed by: [facility], [address] [place]., [address] Reason For Referral No Information Medications Medication SIG (Take, Route, Frequency, Duration) Notes Start Date End Date Status amLODIPine Besylate 5 MG 1 tablet Orally Once a day; Duration: 30 day(s) Active Loperamide HCl 1 MG/7.5ML take 2 tablets (4 mg) by oral route after 1st loose stool and 1 tablet (2 mg) after each next bowel movement; do not exceed 16 mg in 24hrs Oral 0 Active Hydroxychloroquine Sulfate 200 MG 1 Orally twice a day with food; Duration: 90 days 12/02/2024 Active Aspir-81 Active traMADol HCl 50 MG 1 tablet as needed Orally Once a day prn; Duration: 30 days 06/05/2024 Active Atorvastatin Calcium 80 MG 1 tablet Oral ly Once a day; Duration: 30 day(s) Active ZyrTEC Allergy 10 MG take 1 tablet (10 m g) by oral route once daily Oral 1 Active Cyclobenzaprine HCl 10 MG Oral Active metFORMIN HCl 500 MG 1 tablet with a paula l Orally twice a day; Duration: 30 day(s) Active Chlorthalidone 25 MG 1 tablet in the morning with food one a day Active Spironolactone 25 MG take 1 tablet (25 m g) by oral route every other day Oral 0.5 Active Pioglitazone HCl 30 MG take 1 tablet (30 mg) by oral route once daily Oral 1 Active Immunizations Vaccine Route Administration Date Status Comme nts Pfizer Biontech Covid-19 Vaccine 2nd dose Unknown 04/29/2020 Administered Pfizer Biontech Covid-19 Vaccine 2nd dose Unknown 05/20/2020 Administered Pizer booster Problems Problem Type SNOMED Code ICD Code Onset Dates Problem Status W/U Status Risk Notes Problem Rheumatoid arthritis (17697121) 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) Active confirmed Problem Personal history of primary malignant neoplasm of breast (856838598) History of breast cancer (Z85.3) Active confirmed Problem Leukopenia (04148089) Leukopenia, unspecified type (D72.819) Active confirmed Vital Signs Heart Rate 102 /min 06/05/2024 Temperature 97.4 degrees Fahrenheit 06/05/2024 Height-cm 157.48 cm 06/05/2024 Blood pressure diastolic 68 mm Hg 06/05/2024 Oximetry 95 % 06/05/2024 Weight-kg 104.42 kg 06/05/2024 Height 62 in 06/05/2024 Blood pressure systolic 130 mm Hg 06/05/2024 Weight 230.2 lbs 06/05/2024 BMI 42.1 kg/m2 06/05/2024 Encounters Encounter Location Date Provider Diagnosis [facility] [address], [place] [address] 12/07/2023 Loreto Overton Other rheumatoid arthritis with rheumatoid factor of multiple sites M05.89 ; Leukopenia, unspecified type D72.819 ; High risk medication use Z79.899 and History of breast cancer Z85.3 [facility] [address], [place] [address] 06/05/2024 Loreto Overton Other rheumatoid arthritis with rheumatoid factor of multiple sites M05.89 ; Leukopenia, unspecified type D72.819 ; High risk medication use Z79.899 and History of breast cancer Z85.3 [facility] [address], [place] [address] 06/06/2024 Loreto Overton Assessments Encounter Date Diagnosis (ICD Code) Assessment Notes Treatment Notes Treatment Clinical Notes Section Notes 12/07/2023 Other rheumatoid arthritis with rheumatoid factor of multiple sites (ICD-10 - M05.89) order Xrays of the knees and L hip, continue plaquenil, return in 6 months 06/05/2024 Other rheumatoid arthritis with rheumatoid factor of multiple sites (ICD-10 - M05.89) repeat serologies, order Xrays of hands, increase plaquenil to 400mg/day, refill tramadol, return in 6 months 12/07/2023 Leukopenia, unspecified type (ICD-10 - D72.819) order Xrays of the knees and L hip, continue plaquenil, return in 6 months 06/05/2024 Leukopenia, unspecified type (ICD-10 - D72.819) repeat serologies, order Xrays of hands, increase plaquenil to 400mg/day, refill tramadol, return in 6 months 06/05/2024 High risk medication use (ICD-10 - Z79.899) repeat serologies, order Xrays of hands, increase plaquenil to 400mg/day, refill tramadol, return in 6 months 12/07/2023 High risk medication use (ICD-10 - Z79.899) order Xrays of the knees and L hip, continue plaquenil, return in 6 months 12/07/2023 History of breast cancer (ICD-10 - Z85.3) order Xrays of the knees and L hip, continue plaquenil, return in 6 months 06/05/2024 History of breast cancer (ICD-10 - Z85.3) repeat serologies, order Xrays of hands, increase plaquenil to 400mg/day, refill tramadol, return in 6 months Plan Of Treatment Pending Test Test Name Order Date X ray : Knees, bilateral, A-P standing 0 12/07/2023 X ray : Hip, left 12/07/2023 Insurance Providers Payer Name Payer Address Payer Phone Subscriber Number Group Number Insured Name Patient Relationship to Insured Coverage Start Date Coverage End Date [facility] Medicare Advantage AARP [address] [address] [place] [phone] [id number] Katie Anaya Self - patient is the insured [facility] [address] [address] [place] [address] [id number] Katie Anaya Self - patient is the insured [address] [place] [address] [place] [address] [id number] Katie Anaya Self - patient is the insured 9 Medical (General) History Medical History History ICD Code Breast cancer; Diabetes; Hypertension; Rheumatoid arthritis; Surgical History Surgery Date(Month/Year) Lumpectomy; 2017-09-09 LEFT KNEE ARTHROPLASTY; 2017-09-18 lumbar; 2017-09-18
--- OUTSIDE RECORDS SUMMARY | 2024-11-27 11:31 | XMS_ITS | Encounter Summary ---
Author Organization [facility] Address 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
--- OUTSIDE RECORDS SUMMARY | 2024-11-27 11:31 | XMS_ITS | Encounter Summary ---
Author Organization [facility] Address 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
--- OUTSIDE RECORDS SUMMARY | 2024-11-27 11:31 | XMS_ITS | Encounter Summary ---
Author Organization [facility] Address 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
--- OUTSIDE RECORDS SUMMARY | 2024-11-27 11:31 | XMS_ITS | Clinical Summary ---
Author Organization [facility] Address [address] [place] [address] Care Team Providers Care Manager Hospice Name Role Phone Wilfrid Blackwell MD Primary Care Provider [phone] Source Comments [facility],non-owned Affiliates and Associated Physician Practices is amultiple site organization consisting of ambulatory clinics and hospital sitesin [place], [place], [place] and [place]. This disclosure is being madepursuant to the Care Everywhere program and may not contain all information available regarding this patient. Last updated 17.[facility] Allergies Active Allergy Reactions Criticality Noted Date Comments Leander Inhibitors Swelling 06/05/2018 Chapstick Swelling 06/05/2018 Lip swelling Sulfa Drugs Rash Medium 06/05/2018 Medications * Be aware that medications may not be up to date on this document. Alwaysverify current medications with the patient. AMLODIPINE BESYLATE PO Take 5 mg by mouth once daily Active anastrozole (ARIMIDEX) 1 MG tablet Take 1 mg by mouth once daily prophylactic chemotherapy Active atorvastatin (LIPITOR) 10 MG tablet Take 10 mg by mouth once daily Active DICLOFENAC PO Take 75 mg by mouth [address] 75 mg EC Active gabapentin (NEURONTIN) 300 MG capsule Take 300 mg by mouth once daily Starting 06/06/18 patient will take gabapentin 300 mg once daily for 1 week Being tapered off the medication per physician. Active Misc Natural Products (GLUCOSAMINE CHOND MSM FORMULA PO) Take 4,500 mg by mouth 2 times daily Glucosamine chondroitin [id number] 0 Takes 3 -1500 mg (4500 mg) tablets twice daily Active insulin detemir (LEVEMIR) vial Inject 10 Units subcutaneously at bedtime levemir 100unit/ml pen (3ml) Active pioglitazone (ACTOS) 15 MG tablet Take 15 mg by mouth once daily Active spironolactone (ALDACTONE) 25 MG tablet Take 25 mg by mouth once daily Active dulaglutide (TRULICITY) 0.75 MG/0.5ML injection Inject 0.75 mg subcutaneously every 7 days Active vitamin D, ergocalciferol , (DRISDOL) 60654 UNITS capsule Take 50,000 Units by mouth every 7 days Active Ergocalciferol (VITAMIN D2 PO) Take 1 tablet by mouth once daily Active methotrexate 2.5 MG tablet Take 20 mg by mouth every 7 days Take 8-2.5mg tablets once a week Active folic acid (FOLVITE) 1 MG tablet Take 1 mg by mouth once daily Active cyanocobalamin (VITAMIN B-12) 1000 MCG tablet Take 1,000 mcg by mouth once daily Active cyclobenzaprin e (FLEXERIL) 10 MG tablet Take 10 mg by mouth 3 times daily as needed for Muscle Spasms Active traMADol (ULTRAM) 50 MG tablet Take 50 mg by mouth every 8 hours as needed for Pain Active zolpidem (AMBIEN) 5 MG tablet Take 5 mg by mouth nightly as needed for Insomnia Active cetirizine (ZYRTEC) 10 MG tablet Take 10 mg by mouth once daily Active Diphenoxylate- Atropine (LOMOTIL PO) Take by mouth as needed Active cholestyramine (QUESTRAN) 4 G packet Take 4 g by mouth as needed Active Social History Tobacco Use Types Packs/Day Years Used Date Smoking Tobacco: Never Smokeless Tobacco: Never Alcohol Use Standard Drinks/Week Comments Yes 0 (1 standard drink = 0.6 oz pur e alcohol) 1 time per week Comments Unknown Sex and Gender Information Value Date Recorded Sex Assigned at Not on file Legal Sex Female 6: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 Gender Identity Not on file Sexual Orientation Not on file Last Filed Vital Signs Vital Sign Reading Time Taken Comments Blood Pressure 170/92 06/07/2018 1:45 PM CDT Pulse 101 06/07/2018 1:45 PM CDT Temperature 37.1 C (98.7 F) 06/07/2018 1:24 PM CDT Respiratory Rate 16 06/07/2018 1:45 PM CDT Oxygen Saturation 96% 06/07/2018 1:45 PM CDT Inhaled Oxygen Concentration - - Weight 100.6 kg (221 lb 12.8 oz) 2018 11:22 AM CDT Height 157.5 cm (5' 2) 06/07/2018 11:2 2 AM CDT Body Mass Index 40.57 06/07/2018 11:22 AM CDT Plan of Treatment Health Maintenance Due Date Last Done Comments BONE DENSITY TESTING 1950 COLOGUARD (AGES 45-75) - COL ON CA SCREENING 1949 COLON MONITORING 1949 COLONOSCOPY - COLON CA SCREENING 1949 CT COLONOGRAPHY - COLON CA SCREENING 1950 Colorectal Cancer Screening 1950 FIT - COLON CA SCREENING 1949 FLEX SIG - COLON CA SCREENING 1949 MAMMOGRAM 1950 HEPATITIS C SCREENING 01/15/1967 DTAP/TDAP/TD VACCINES (1 - Tdap) 01/20/1968 PNEUMOCOCCAL VACCINE 50+ (1 of 1 - PCV) 1999 ZOSTER VACCINE (1 of 2) 1999 Respiratory Syncytial Virus (RSV) Vaccine Pt: or over 60 yrs (1 - 1-dose 75+ series) 01/20/2024 DEPRESSION SCREENING 03/20/2024 COVID-19 VACCINE ( - 2023-2 5 season) 2024 INFLUENZA VACCINE (#1) 2024 3, 10/19/2011 HEPATITIS B VACCINE Aged Out No longe r eligible based on patient's age to complete this topic HIB VACCINE Aged Out No longer eligi ble based on patient's age to complete this topic HPV VACCINE Aged Out No longer eligi ble based on patient's age to complete this topic MENINGOCOCCAL (Group B) VACCINE SHARED DECISION-MAKING Aged Out No longer eligible based on patient's age to complete this topic MENINGOCOCCAL GROUPS A/C/Y/W VACCINE Aged Out No longer eligible b ased on patient's age to complete this topic Insurance [facility] Advance Directives Documents on File Type Date Recorded 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
--- OUTSIDE RECORDS SUMMARY | 2024-11-27 11:31 | XMS_ITS | Encounter Summary ---
Author Organization [facility] Address [address] [place] [address] Phone Care Team Providers Care Oncology Consultant Name Role Phone Wilfrid Blackwell MD Primary Care Provider [phone] Nolvia Regan MD Unavailable [phone] Karina Frances MD Unavailable Fide Carranza MD Unavailable Inessa Sapp MD Primary Care Provider Jessica Pagan DDS Unavailable [phone] Loreto Overton MD Unavailable Ava Pérez MD PhD Unavaila ble Jose Armando Genao DPM Unavailable [phone] Leighann Calix MD Unavailable [phone] Karina Frances MD Unavailable Janeth Singh MD Unavailable [phone] Asif Demarco MD Unavailable [phone] Arben De Dios MD Unavailable [phone] Rony Sosa MD Unavailable PuAracelis denney RPh Unavailable Kelly Vasquez OT Unavailable PuAracelis denney RPh Unavailable Barron, Aracelis RPh Unavailable Ashtyn Lopez CEO AND PRESIDENT Unavailable Kelly Vasquez OT Unavailable PuAracelis denney RPh Unavailable Pablo Betancourt MA Unavailable Lesley Fournier MINO Unavailable Encounter Details Date Type Department Care Team (Late st Contact Info) Description 11/22/2018 Social Work [facility] Oncology [address] [place] [phone] Serena Lee, [address] [place] [address] Social History Tobacco Use Types Packs/Day Years Used Date Smoking Tobacco: Never Smokeless Tobacco: Never Alcohol Use Standard Drinks/Week Comments Yes 2 (1 standard drink = 0.6 oz pur e alcohol) i per month Comments No Sex and Gender Information Value Date Recorded Sex Assigned at Not on file Legal Sex Female 12:21 AM SHOVEL LOG LOADER OPERATOR Gender Identity Female 04/16/2019 1:38 PM SHOVEL LOG LOADER OPERATOR Sexual Orientation Straight 03/18/2019 1: 47 PM SHOVEL LOG LOADER OPERATOR documented as of this encounter Progress Notes * Serena Lee, FINISHING MACHINE OPERATOR - 11/22/2018 2:17 PM CDT Name: Katie Anaya Age: 68 y.o. Sex: female (home) Address: [address] [place] [address] PCP: Wilfrid HOLMAN was consulted by Dr. Frances to assist patient with acupuncture therapy resources. RIVER provided patient with resources for acupuncture along with the [employer] for message therapy. No additional needs a this time. I will remain available to assist as needed. CLARA Alcantara documented in this encounter Plan of Treatment Not on [...] documented as of this encounter Care Teams Oncology Consultant Relationship Specialty Start Date End Date Wilfrid Blackwell MD PCP - General 06/22/16 01/13/19 Inessa Sapp MD [address] [place] [address] PCP - General Family Medicine 01/14/19 Nolvia Regan MD [address] [place] [address] Radiation Oncologist Radiation Oncology 08/04/17 04/04/20 Karina Frances MD [address] [place] [address] Medical Oncologist/Cable Television Program Director Medical Oncology 09/14/17 12/08/19 Fide Carranza MD [address] [place] [address] Surgeon Surgical Oncology 09/14/17 12/14/23 Jessica Pagan, JOSEFINAS [address] [address] Dentist Dental Map And Chart Mounter 04/22/19 Loreto Overton MD [address] [id number] Consulting Physician Rheumatology 04/22/19 Ava Pérez MD PhD [address] [phone] Surgeon Surgical Oncology 04/22/19 Jose Armando Genao DPM [address] [id number] Referring Physician Podiatry 04/22/19 Leighann Calix MD [address] [place] [address] DR [facility], [facility] [address] [place] [address] Consulting Physician Nephrology 04/22/19 [place] [address] [place] [address] Medical Oncologist/Cable Television Program Director Medical Oncology 04/22/19 12/08/19 [place] [address] [address] Consulting Physician Gastroenterology 04/22/19 [place] [address] [facility] [address] [place] [address] Surgeon Orthopedic Surgery 04/22/19 12/14/23 [place] [address] [facility] [address], [place] [address] Anesthesiologist Pain Management 04/22/19 12/14/23 [place] [address] [place] [address] Consulting Physician Medical Oncology 12/31/19 [facility] [address] [facility] [address] [place] [address] Pharmacist Pharmacy 08/28/20 02/07/21 [place] [address] [place] [address] Occupational Therapist Occupational Therapy 02/08/2102/[address] [place] [address] Pharmacist Pharmacy 04/29/21 04/29/[address] [place] [address] Pharmacist Pharmacy 05/20/21 05/15/22 Ashtyn Lopez LPN [address] [place] [address] [address] [place] [address] [employer] Interviewer 07/20/21 07/21/21 [place] [address] [place] [address] Occupational Therapist Occupational Therapy 08/12/2102/17 Aracelis Mart [address] [place] [address] Pharmacist Pharmacy 10/10/22 07/30/23 Pablo Betancourt MA [address] [place] [address] [address] [place] [address] [employer] Research Interviewer 02/02/23 02/02/23 Lesley Fournier CMA [address] [facility] [address] [place] [address] [employer] Research Interviewer 04/03/23 04/04/23 documented as of this encounter
--- OUTSIDE RECORDS SUMMARY | 2024-11-27 11:31 | XMS_ITS | Encounter Summary ---
Author Organization [facility] Address 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
--- OUTSIDE RECORDS SUMMARY | 2024-11-27 11:31 | XMS_ITS | Patient Health Record ---
Author Organization [facility] [place] Address [address] [facility] [address] [address] [address] Care Team Providers Care Chief Scientist Name Role Phone Milad Anderson Unavailable [phone] Allergies Allergen (clinical drug ingredient) Drug/Non Drug Allergy documented on EMR Reaction Allergy Type Onset Date Status angiotensin-converting enzyme inhibitor (FN) KAVON Inhibitors swelling Drug Allergy Acti ve Substance with sulfonamide structure and antibacterial mechanism of action (substance) Sulfa Antibiotics swelling Drug Allergy Active Reason For Referral No Information Medications Medication SIG (Take, Route, Frequency, Duration) Notes Start Date End Date Status amLODIPine Besylate 5 MG 1 tablet Orally Once a day Active Furosemide 40 MG 1 tablet Orally Once a day Active Hydroxychloroquine Sulfate 2 00 MG as directed Orally Active Atorvastatin Calcium 80 MG 1 tablet Oral ly Once a day Active Chlorthalidone 25 MG 1 tablet in the morning with food Orally Active Pioglitazone HCl 30 MG 1 tablet Orally O nce a day Active Spironolactone 25 MG 1 tablet Orally Onc e a day Active metFORMIN HCl Active Problems Problem Type SNOMED Code ICD Code Onset Dates Problem Status W/U Status Risk Notes Problem Lumbosacral spondylosis without myelopathy (61295996) Arthropathy of lumbosacral facet joint (M47.817) Active confirmed Problem History of arthrodesis (581307126) 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817 ; Low back pain, unspecified M54.50 and History of fusion of lumbar spine Z98.1 [facility] [address] [place] [address] 10/25/2024 Milad Cajigal Arthropathy of lumbosacral facet joint M47.817 ; Low back pain, unspecified M54.50 and History of fusion of lumbar spine Z98.1 [facility] [address] [place] [address] 11/15/2024 Milad Cajigal Arthropathy of lumbosacral facet joint M47.817 ; Low back pain, unspecified M54.50 and History of fusion of lumbar spine Z98.1 [facility] [address] [place] [address] 10/17/2024 Milad Cajigal Assessments Encounter Date Diagnosis (ICD Code) Assessment Notes Treatment Notes Treatment Clinical Notes Section Notes 10/17/2024 Arthropathy of lumbosacral facet joint (ICD-10 - M47.817) Chronic, exacerbated. Expected to last greater than 1 year. Goals pain management are to stand and walk without pain.1. No UDS today. Will not pursue opioid therapy in this patient.2. Recommend to remain as active as possible.3. History of physical therapy for 8 to 10 weeks with persistent pain unfortunately.4. CT lumbar spine reviewed showing anterior and posterior instrumented fusion at L3-4 with spacer integration, left Orion laminectomy and moderate right foraminal stenosis, multiple levels of facet arthropathy. Please see scanned documents for more details.5. History of left lumbar medial branch block x 2 with 80% improvement pain. Schedule for left L4-5, L5-S1 medial branch RFA given history, physical exam, imaging findings for left low axial back pain. Information given to patient. Risks of interventional procedure includes bleeding, pain, infection, failure of treatment, injury to nerve or other body parts. 10/17/2024 Low back pain, unspecified (ICD-10 - M54.50) 10/25/2024 Arthropathy of lumbosacral facet joint (ICD-10 - M47.817) Chronic, exacerbated. Expected to last greater than 1 year. Goals pain management are to stand and walk without pain.1. Will not pursue opioid therapy in this patient.2. Recommend to remain as active as possible.3. History of physical therapy for 8 to 10 weeks with persistent pain unfortunately.4. CT lumbar spine report reviewed stating anterior and posterior instrumented fusion at L3-4 with spacer integration, left Orion laminectomy and moderate right foraminal stenosis, multiple levels of facet arthropathy. Please see scanned documents for more details. Imaging of patient during procedure shows L4-5 fusion.5. History of left lumbar medial branch block x 2 with 80% improvement pain. On imaging of donnie, she is fused at L4-5. Proceed with left L5-S1 medial branch RFA given history, physical exam, imaging findings for left low axial back pain. N.p.o. greater than 8 hours and has a local city driver for sedation. Recommend to ice back 20 minutes on 20 minutes off for the next 3 to 4 days. Recommend to take Tylenol as needed for postop pain. Risks of interventional procedure includes bleeding, pain, infection, failure of treatment, injury to nerve or other body parts. 6. Patient was notified of my departure from the practice with my last day being on 11/17/2024. A letter was given with information for my new practice location and other providers in the area so they can have continuity of care and avoid interruption in their medical treatment. 11/15/2024 Arthropathy of lumbosacral facet joint (ICD-10 - M47.817) Chronic, exacerbated. Expected to last greater than 1 year. Goals pain management are to stand and walk without pain.1. Will not pursue opioid therapy in this patient.2. Recommend to remain as active as possible.3. History of physical therapy for 8 to 10 weeks with persistent pain unfortunately.4. CT lumbar spine report reviewed stating anterior and posterior instrumented fusion at L3-4 with spacer integration, left Orion laminectomy and moderate right foraminal stenosis, multiple levels of facet arthropathy. Please see scanned documents for more details. Imaging of patient during procedure shows L4-5 fusion.5. S/p left L5-S1 medial branch RFA with 85% improvement in pain. Repeat as neccessary per patient. Minimum amount of time in between RFA 6 months. Risks of interventional procedure includes bleeding, pain, infection, failure of treatment, injury to nerve or other body parts. 6. Patient was notified of my departure from the practice with my last day being on 11/17/2024. A letter was given with information for my new practice location and other providers in the area so they can have continuity of care and avoid interruption in their medical treatment. 10/25/2024 Low back pain, unspecified (ICD-10 - M54.50) 11/15/2024 Low back pain, unspecified (ICD-10 - M54.50) 10/17/2024 History of fusion of lumbar spine (ICD-10 - Z98.1) Chronic, exacerbated. Expected to last greater than 1 year. Goals pain management are to stand and walk without pain. 1. If minimal benefit with left lumbar medial branch RFA, consider spinal cord stimulator trial. Risks of interventional procedure includes bleeding, pain, infection, failure of treatment, injury to nerve or other body parts. 10/25/2024 History of fusion of lumbar spine (ICD-10 - Z98.1) Chronic, exacerbated. Expected to last greater than 1 year. Goals pain management are to stand and walk without pain. 1. If minimal benefit with left lumbar medial branch RFA, consider spinal cord stimulator trial. Risks of interventional procedure includes bleeding, pain, infection, failure of treatment, injury to nerve or other body parts. 11/15/2024 History of fusion of lumbar spine (ICD-10 - Z98.1) Chronic, exacerbated. Expected to last greater than 1 year. Goals pain management are to stand and walk without pain. 1. If minimal benefit with left lumbar medial branch RFA, consider spinal cord stimulator trial. Risks of interventional procedure includes bleeding, pain, infection, failure of treatment, injury to nerve or other body parts. 10/17/2024 Other MDM: 2 or more chronic exacerbated illnesses and moderate risk morbidity secondary to interventional pain procedures. 10/25/2024 Other MDM: 2 or more chronic exacerbated illnesses and moderate risk morbidity secondary to interventional pain procedures. 11/15/2024 Other MDM: 2 or more chronic exacerbated illnesses and moderate risk morbidity secondary to interventional pain procedures. Plan Of Treatment No Information Medical (General) History Medical History History ICD Code high blood pressure diabetes breast cancer osteoarthritis rheumatoid arthritis CKD irritable bowel syndrome Surgical History Surgery Date(Month/Year) lumbar 2019,2022 gall bladder removal unknown
--- OUTSIDE RECORDS SUMMARY | 2024-11-27 11:31 | XMS_ITS | Clinical Summary ---
Author Organization [facility] Address [address] [place] [address] Phone Care Team Providers Care Mitering Machine Operator Name Role Phone Unavailable Primary Care Provider Unavailabl e Allergies Active Allergy Reactions Criticality Noted Date Comments Leander Inhibitors Swelling Low 01/14/2011 Medications amLODIPine (NORVASC) 5 mg tablet Take 1 Tablet by mouth daily. 5 Active atorvastatin (LIPITOR) 80 mg tablet Take 1 Tablet by mouth daily. 5 Active Accu-Chek Guide test strips Strip CHECK BLOOD GLUCOSE LEVELS 2 TIMES EVERY DAY 5 Active cetirizine (ZyrTEC) 10 mg tablet TAKE 0.5 TABLETS (5 MG TOTAL) BY MOUTH DAILY NEEDED FOR ALLERGIES 5 Active chlorthalidone (HYGROTON) 25 mg tablet Take 1 Tablet by mouth daily. 5 Active furosemide (LASIX) 40 mg tablet 5 Active hydroxychloroqu ine (PLAQUENIL,SOVU NA) 200 mg tablet take one tablet by mouth twice a day with food for 90 days 5 Active metFORMIN (GLUCOPHAGE XR) 500 mg Extended Release 24 hour tablet Take 1 Tablet by mouth 2 times daily. 5 Active pioglitazone (ACTOS) 30 mg tablet Take 30 mg by mouth daily in the morning. 5 Active spironolactone (ALDACTONE) 25 mg tablet Take 1 Tablet by mouth daily. 5 Active sodium, potassium and magnesium SULFATES (SUPREP) 17.5-3.13-1.6 gram Recon Soln PLEASE SEE ATTACHED FOR DETAILED DIRECTIONS 5 Active Active Problems No known active problems Encounters Date Type Department Care Team Description 11/26/2024 External Device Data [facility] ABSTRACTION Provider, Abstract 11/05/2024 External Device Data [facility] ABSTRACTION Provider, Abstract 10/22/2024 External Device Data [facility] ABSTRACTION Provider, Abstract 10/02/2024 External Device Data [facility] ABSTRACTION Provider, Abstract 10/01/2024 External Device Data [facility] ABSTRACTION Provider, Abstract 09/17/2024 External Device Data [facility] ABSTRACTION Provider, Abstract 09/17/2024 External Device Data [facility] ABSTRACTION Provider, Abstract 09/17/2024 External Device Data [facility] ABSTRACTION Provider, Abstract 09/10/2024 11:35 AM CDT Ancillary Procedure [facility] [address] [phone] Suleman Cesar NP Degeneration of intervertebral disc of lumbar region with discogenic back pain and lower extremity pain 09/10/2024 11:30 AM CDT Office Visit [facility] [address] [phone] Abdon Obrien MD Degeneration of intervertebral disc of lumbar region with discogenic back pain and lower extremity pain (Primary Dx) 09/05/2024 Abstract [facility] [address] [phone] Abdon Obrien MD from Last 3 Months Social History Tobacco Use Types Packs/Day Years Used Date Smoking Tobacco: Never Comments Unknown Sex and Gender Information Value Date Recorded Sex Assigned at Not on file 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 Gender Identity Not on file Sexual Orientation Not on file Last Filed Vital Signs Vital Sign Reading Time Taken Comments Blood Pressure 112/71 09/10/2024 11:11 AM CDT Pulse 84 09/10/2024 11:11 AM CDT Temperature 36.3 C (97.3 F) 09/10/2024 11:11 AM CDT Respiratory Rate 18 09/10/2024 11:11 AM CDT Oxygen Saturation 98% 09/10/2024 11:11 AM CDT Inhaled Oxygen Concentration - - Weight 103 kg (227 lb) 09/10/2024 11:11 AM CDT Height 157.5 cm (5' 2) 09/10/2024 11:11 AM CDT Body Mass Index 41.52 09/10/2024 11:11 AM CDT Plan of Treatment Health Maintenance Due Date Last Done Comments DIABETES ANNUAL RETINAL EXAM 1967 DIABETES MICROALBUMIN ANNUAL SCREEN 1967 LDL CHOLESTEROL ANNUAL 1967 FIT-DNA Q 3 years 1994 Flex Sig/CT Colonography Q 5 years 1994 FIT/FOBT Q 1 year 03/16/1999 03/16/1998 RSV VACCINE (60+ or ) (1 - 1-dose 75+ series) 01/20/2024 DIABETES HBA1C Q 6 MONTHS 08/19/2024 02/19/2024 INFLUENZA VACCINE (#1) 2024 3, 12/05/2021, 01/13/2021, Additional history exists COVID-19 Vaccine (7 - Pfizer risk season) 2024 12/21/2023, 01/10/2023, 06/27/2021, Additional history exists DIABETES ANNUAL FOOT EXAM 11/20/2024 11/21/2023 OSTEOPOROSIS SCREENING 11/27/2028 4, 11/28/2023, 11/01/2021, Additional history exists DTAP/TDAP/TD VACCINES (2 - T d or Tdap) 01/14/2029 01/14/2019 COLORECTAL SCREENING 06/25/2034 06/25/2024, 06/25/2024, 04/16/2019 Colorectal Cancer Screening 06/25/2034 PNEUMOCOCCAL VACCINE 50+ YEARS Completed 05/22/2018 , 02/03/2015 ZOSTER VACCINE Completed 10/12/2020, 04/25/2019 Procedures Procedure Name Priority Date/Time Associated Diagnosis Comments XR LUMBAR SPINE 4+ VW Routine 09/10/2024 11:32 AM CDT Degeneration of intervertebral disc of lumbar region with discogenic back pain and lower extremity pain from Last 3 Months Results * XR LUMBAR SPINE 4+ VW (09/10/2024 11:32 AM CDT) Anatomical Region Laterality Modality Spine Computed Radiogr aphy Narrative 10/01/2024 4:29 PM CDT L-spine xray report: Clinical Indications: s/p lumbar fusion Technique: AP and lateral lumbar films were performed today in clinic and personally reviewed by me. My findings/interpretation are: There is no acute evidence of interval fracture or traumatic subluxation identified. Overall sagittal alignment shows normal lumbar lordosis. AP alignment of the lumbar spine is maintained. Vertebrae show normal architecture Intervertebral disc spaces are relatively normal. There are postoperative changes of posterior instrumented fusion from L4 to L5 with bilateral transpedicular screws and stabilizing rods.There is bone graft material in the bilateral posterolateral recesses at this level. There is a solid interbody fusion. There is no radiographic evidence to suggest hardware fracture or loosening. The patient has a trace anterior listhesis of L5 on S1 which does not move with dynamic range of motion. There is no significant motion of the levels as well. The sacroiliac joints appear symmetric. Suleman Cesar NP DIAGNOSTIC IMAGING ORDERAB LES Final Result from Last 3 Months Insurance [facility] [id number]
--- OUTSIDE RECORDS SUMMARY | 2024-11-27 11:31 | XMS_ITS | Encounter Summary ---
Author Organization [facility] Address 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
== END 2024-11-27 10:38 | disposition home or self-care (01) ==
PROVIDERS: Visit Provider Orthopaedic Surgery
DX: M17.11 Unilateral primary osteoarthritis, right knee (principal)
CPT/HCPCS: 73564